=== PATIENT | female | born 1965 | race Caucasian/White ===

== ENCOUNTER 2019-09-01 21:26 | Inpatient (IN) | payer MEDICAID ==
[~2019-09-01] VITALS: Ht 172.7 cm; Wt 75.0 kg
[2019-09-01] MEDS ORDERED: normal saline 1000ML IV soln IVB ONE (21:45)
[2019-09-01] MEDS ORDERED: ondansetron/PF 4mg/2ml inj IV ONE (21:45)
[2019-09-01] MEDS: morphine 4 MG/ML inj SYRINge IV PRN (21:53)
[2019-09-01] MEDS ORDERED: acetaminophen 325mg tablet PO PRN ×2 (22:00)
[2019-09-01] MEDS ORDERED: mag hydrox/Alum hydrox/simeth 30ml oral suspension PO PRN (22:00)
[2019-09-01] MEDS ORDERED: ondansetron/PF 4mg/2ml inj IV PRN (22:00)
[2019-09-01] MEDS ORDERED: magnesium hydroxide 30ml (MOM) UD suspension PO PRN (22:00)
[2019-09-01] MEDS ORDERED: HYDROcodone/acetaminophen 5mg/325mg tablet PO PRN (22:00)
[2019-09-01] MEDS ORDERED: morphine 2 MG/ML inj. syringe IV PRN (22:00)
[2019-09-01] MEDS ORDERED: AMLO2.5T2 PO (22:08)
[2019-09-01] MEDS ORDERED: ATOR20TA PO (22:08)
[2019-09-01] MEDS ORDERED: POTA10TA19 PO (22:08)
[2019-09-01] MEDS ORDERED: SYN0.088T PO (22:08)
[2019-09-01] MEDS ORDERED: HYDR25TA4 PO (22:08)
[2019-09-01] MEDS ORDERED: LEVO25TA2 PO (22:08)
[2019-09-01 22:12] LABS: BASOPHILS % (AUTO) 0.3 % (0-1); EOSINOPHILS % (AUTO) 0.6 % (0-6); HEMATOCRIT 38.3 % (35.0-45.0); HEMOGLOBIN 13.3 g/dl (12.0-16.0); LYMPHOCYTES # (AUTO) 2.3 X10'3 (1.1-4.8); LYMPHOCYTES % (AUTO) 32.4 % (21-51); MEAN CORPUSCULAR HEMOGLOBIN 34.5 PG (27.0-31.0); MEAN CORPUSCULAR HGB CONC 34.9 g/dL (33.0-36.5); MEAN CORPUSCULAR VOLUME 98.8 FL (78-98); MEAN PLATELET VOLUME 7.6 FL (7.4-10.4); MONOCYTES # (AUTO) 0.8 X10'3 (0-0.9); MONOCYTES % (AUTO) 11.6 % (2-12); NEUTROPHILS # (AUTO) 3.9 X10'3 (1.8-7.7); NEUTROPHILS % (AUTO) 55.1 % (42-75); PLATELET COUNT 239 X10'3 (140-440); RED BLOOD COUNT 3.87 X10'6 (4.20-5.60); RED CELL DISTRIBUTION WIDTH 14.5 % (11.5-14.5)
[2019-09-01 22:33] LABS: ALANINE AMINOTRANSFERASE 96 U/L (12-78); ALBUMIN 2.9 G/DL (3.4-5.0); ALBUMIN/GLOBULIN RATIO 0.8 (1.1-1.5); ALKALINE PHOSPHATASE 199 IU/L (46-116); ANION GAP 9 (8-16); ASPARTATE AMINO TRANSFERASE 141 U/L (10-37); BILIRUBIN,TOTAL 1.4 MG/DL (0.1-1.0); BLOOD UREA NITROGEN 11 MG/DL (7-18); BUN/CREATININE RATIO 8.9 (6.6-38.0); CALCIUM 8.3 MG/DL (8.5-10.1); CHLORIDE 93 MMOL/L (99-107); CREATININE 1.23 MG/DL (0.40-0.90); GLUCOSE 97 MG/DL (70-104); LIPASE 904 U/L (73-393); POTASSIUM 3.4 MMOL/L (3.5-5.1); SODIUM 133 MMOL/L (135-145); TOTAL CARBON DIOXIDE 30.9 MMOL/L (24-32); TOTAL PROTEIN 6.5 G/DL (6.4-8.2); eGFR 46 ML/MIN
[2019-09-01] MEDS: normal saline 1000ml 1,000 ML IV SCH (23:31)
[2019-09-01] MEDS: HYDROcodone/acetaminophen 10/325mg tab PO PRN (23:35)
[2019-09-02] MEDS: diphenhydrAMINE 25mg capsule PO PRN ×3 (00:43→21:11)
[2019-09-02 00:48] LABS: CLARITY,URINE SLIGHTLY CLOUDY (Clear); GLUCOSE, URINE NEGATIVE (Neg); KETONES,URINE 15 mg/dl (Neg); LEUKOCYTE ESTERASE ,URINE NEGATIVE (Neg); OCCULT BLOOD,URINE NEGATIVE (Neg); PH,URINE 6.5 (4.8-8.0); PROTEIN,URINE 30 mg/dl (Neg)
[2019-09-02 00:53] LABS: UA COLLECTION TYPE CLN CATCH MIDSTREAM
[2019-09-02 00:55] LABS: COLOR,URINE DARK YELLOW (Yellow)
[2019-09-02 00:59] LABS: NITRITES, URINE NEGATIVE (Neg)
[2019-09-02 01:00] LABS: BACTERIA,URINE FEW /HPF (Neg); RBC,URINE NONE SEEN /HPF (0-2); WBC,URINE 0-4 /HPF (0-4)
[2019-09-02 01:01] LABS: SQUAMOUS EPITHELIAL CELL,UR MANY /LPF (FEW)
[2019-09-02] MEDS: morphine 4 MG/ML inj SYRINge IV PRN (01:35)
[2019-09-02 01:47] VITALS: BP 126/86
[2019-09-02] MEDS: HYDROcodone/acetaminophen 10/325mg tab PO PRN ×4 (03:44→22:56)
--- NOTE | 2019-09-02 06:09 | NUR ---
Problems reprioritized. Patient report given, questions answered & plan of care reviewed with NAVIN Lopez. Addendum: 09/02/19 at 0609 by Edwige Santiago RN Amended: Links added.
[2019-09-02 06:26] LABS: BASOPHILS % (AUTO) 0.2 % (0-1); EOSINOPHILS # (AUTO) 0.1 X10'3 (0-0.9); EOSINOPHILS % (AUTO) 1.9 % (0-6); HEMATOCRIT 32.9 % (35.0-45.0); HEMOGLOBIN 11.6 g/dl (12.0-16.0); LYMPHOCYTES # (AUTO) 1.8 X10'3 (1.1-4.8); LYMPHOCYTES % (AUTO) 32.9 % (21-51); MEAN CORPUSCULAR HEMOGLOBIN 34.8 PG (27.0-31.0); MEAN CORPUSCULAR HGB CONC 35.1 g/dL (33.0-36.5); MONOCYTES # (AUTO) 0.7 X10'3 (0-0.9); MONOCYTES % (AUTO) 13.6 % (2-12); NEUTROPHILS # (AUTO) 2.8 X10'3 (1.8-7.7); NEUTROPHILS % (AUTO) 51.4 % (42-75); PLATELET COUNT 201 X10'3 (140-440); RED BLOOD COUNT 3.33 X10'6 (4.20-5.60); RED CELL DISTRIBUTION WIDTH 14.3 % (11.5-14.5); WHITE BLOOD COUNT 5.5 X10'3 (4.5-11.0)
--- NOTE | 2019-09-02 06:30 | NUR ---
Patient in room [facility]. I have received report from Edwige HOLDEN and had the opportunity to ask questions and assume patient care.
[2019-09-02 06:45] LABS: ALANINE AMINOTRANSFERASE 78 U/L (12-78); ALBUMIN 2.5 G/DL (3.4-5.0); ALBUMIN/GLOBULIN RATIO 0.8 (1.1-1.5); ALKALINE PHOSPHATASE 172 IU/L (46-116); ANION GAP 7 (8-16); ASPARTATE AMINO TRANSFERASE 107 U/L (10-37); BILIRUBIN,TOTAL 1.2 MG/DL (0.1-1.0); BLOOD UREA NITROGEN 11 MG/DL (7-18); BUN/CREATININE RATIO 10.1 (6.6-38.0); CALCIUM 7.3 MG/DL (8.5-10.1); CHLORIDE 96 MMOL/L (99-107); CHOL/HDL RATIO 4.1 (0.00-4.99); CHOLESTEROL 138 MG/DL (0-200); CREATININE 1.09 MG/DL (0.40-0.90); GLUCOSE 85 MG/DL (70-104); HDL CHOLESTEROL 34 MG/DL (35-60); LDL CHOLESTEROL 82 MG/DL (50-100); SODIUM 133 MMOL/L (135-145); TOTAL CARBON DIOXIDE 29.7 MMOL/L (24-32); TOTAL PROTEIN 5.7 G/DL (6.4-8.2); TRIGLYCERIDES 147 MG/DL (20-135); eGFR 53 ML/MIN
[2019-09-02 06:54] LABS: POTASSIUM 2.8 MMOL/L (3.5-5.1)
--- NOTE | 2019-09-02 07:03 | NUR ---
PAGER ID: [phone] MESSAGE: [id number] Ant Echevarria8, need protocol to replace. Jessica [phone]
[2019-09-02] MEDS: enoxaparin 40mg/0.4ml syringe SUBCUT SCH (08:06)
[2019-09-02 09:20] VITALS: BP 106/67
[2019-09-02] MEDS ORDERED: potassium CL 10mEq/100ml bag 100 ML IV PRN (09:40)
[2019-09-02] MEDS ORDERED: potassium Cl 20 mEq SR tablet PO PRN (09:40)
[2019-09-02 11:31] VITALS: BP 113/76
[2019-09-02] MEDS: Potassium Cl 40 MEQ in NS 500 ML IV SCH ×2 (11:36→21:03)
[2019-09-02] MEDS: normal saline 1000ml 1,000 ML IV SCH ×2 (11:45→17:56)
--- NOTE | 2019-09-02 12:15 | NUR ---
Patient in room [facility] 348. I have received report from Audrey Newman RN and had the opportunity to ask questions and assume patient care.
--- NOTE | 2019-09-02 12:27 | NUR ---
PAGER ID: [phone] MESSAGE: [phone] Wale, is going for MRCP in 30 min. Can I get an order for PO Ativan please. Jessica [phone]
[2019-09-02] MEDS: morphine 2 MG/ML inj. syringe IV PRN ×3 (12:28→21:06)
[2019-09-02] MEDS ORDERED: SERT50TA10 PO (12:30)
[2019-09-02] MEDS ORDERED: OMEP-50 PO (12:30)
[2019-09-02] MEDS ORDERED: METO100T14 PO (12:30)
[2019-09-02] MEDS ORDERED: LORazepam 0.5 MG tablet PO STA (12:31)
--- NOTE | 2019-09-02 13:03 | NUR ---
Patient off the unit for MRCP
--- NOTE | 2019-09-02 15:09 | NUR ---
PAGER ID: [phone] MESSAGE: [phone] Vanita Echevarria: MRCP is complete with report. Jessica [phone]
--- NOTE | 2019-09-02 16:35 | NUR ---
REVIEWED SAFETY INTERN CHARTING
[2019-09-02] MEDS ORDERED: LEVO112T5 PO (17:18)
[2019-09-02] MEDS ORDERED: AMLO10TA PO (17:20)
--- NOTE | 2019-09-02 19:38 | NUR ---
Patient in room [facility] 348. I have received report from NAVIN Lopez and had the opportunity to ask questions and assume patient care. Addendum: 09/02/19 at 1939 by Edwige Santiago RN Amended: Links added.
[2019-09-02 20:00] VITALS: BP 94/66
[2019-09-02] MEDS: metoprolol tartrate 50mg tablet PO SCH (20:00)
[2019-09-03 00:25] VITALS: BP 93/63
[2019-09-03] MEDS: morphine 2 MG/ML inj. syringe IV PRN ×6 (00:59→22:00)
[2019-09-03] MEDS: HYDROcodone/acetaminophen 10/325mg tab PO PRN ×6 (03:00→23:42)
[2019-09-03] MEDS: normal saline 1000ml 1,000 ML IV SCH ×3 (03:56→23:56)
[2019-09-03 05:20] LABS: BASOPHILS % (AUTO) 0.2 % (0-1); EOSINOPHILS # (AUTO) 0.2 X10'3 (0-0.9); EOSINOPHILS % (AUTO) 3.5 % (0-6); HEMATOCRIT 34.7 % (35.0-45.0); LYMPHOCYTES # (AUTO) 2.1 X10'3 (1.1-4.8); MEAN CORPUSCULAR HEMOGLOBIN 35.1 PG (27.0-31.0); MEAN CORPUSCULAR HGB CONC 34.5 g/dL (33.0-36.5); MEAN CORPUSCULAR VOLUME 101.7 FL (78-98); MEAN PLATELET VOLUME 8.1 FL (7.4-10.4); MONOCYTES # (AUTO) 0.5 X10'3 (0-0.9); NEUTROPHILS # (AUTO) 3.6 X10'3 (1.8-7.7); NEUTROPHILS % (AUTO) 55.3 % (42-75); PLATELET COUNT 214 X10'3 (140-440); RED BLOOD COUNT 3.41 X10'6 (4.20-5.60); RED CELL DISTRIBUTION WIDTH 14.6 % (11.5-14.5); WHITE BLOOD COUNT 6.5 X10'3 (4.5-11.0)
[2019-09-03 06:08] LABS: ALANINE AMINOTRANSFERASE 84 U/L (12-78); ALBUMIN 2.7 G/DL (3.4-5.0); ALBUMIN/GLOBULIN RATIO 0.7 (1.1-1.5); ALKALINE PHOSPHATASE 190 IU/L (46-116); ANION GAP 12 (8-16); ASPARTATE AMINO TRANSFERASE 96 U/L (10-37); BLOOD UREA NITROGEN 10 MG/DL (7-18); BUN/CREATININE RATIO 9.7 (6.6-38.0); CALCIUM 7.7 MG/DL (8.5-10.1); CHLORIDE 98 MMOL/L (99-107); CREATININE 1.03 MG/DL (0.40-0.90); GLUCOSE 77 MG/DL (70-104); MAGNESIUM 1.1 MG/DL (1.5-2.4); POTASSIUM 3.6 MMOL/L (3.5-5.1); SODIUM 134 MMOL/L (135-145); TOTAL CARBON DIOXIDE 23.8 MMOL/L (24-32); TOTAL PROTEIN 6.4 G/DL (6.4-8.2); eGFR 56 ML/MIN
--- NOTE | 2019-09-03 06:11 | NUR ---
Problems reprioritized. Patient report given, questions answered & plan of care reviewed with NAVIN Lopez and SN Nida. Addendum: 09/03/19 at 0611 by Edwige Santiago RN Amended: Links added.
--- NOTE | 2019-09-03 06:40 | NUR ---
Patient in room [facility]. I have received report from Edwige HOLDEN and had the opportunity to ask questions and assume patient care.
[2019-09-03 07:04] VITALS: BP 109/78
[2019-09-03] MEDS: magnesium Cl slow-release 64mg tablet PO PRN ×2 (07:10→19:50)
[2019-09-03] MEDS: metoprolol tartrate 50mg tablet PO SCH ×2 (07:11→19:55)
[2019-09-03] MEDS: diphenhydrAMINE 25mg capsule PO PRN ×3 (07:11→22:00)
[2019-09-03] MEDS: sertraline 50mg tablet PO SCH (07:11)
[2019-09-03] MEDS: enoxaparin 40mg/0.4ml syringe SUBCUT SCH (08:00)
[2019-09-03] MEDS: amLODIPine 5mg tablet PO SCH (08:00)
[2019-09-03] MEDS ORDERED: levoTHYROXINE 112mcg tablet PO SCH (08:00)
[2019-09-03 12:40] VITALS: BP 97/68
--- NOTE | 2019-09-03 17:45 | NUR ---
Faxed [employer] Screening Form.
--- NOTE | 2019-09-03 18:21 | NUR ---
Problems reprioritized. Patient report given, questions answered & plan of care reviewed with Edwige HOLDEN.
--- NOTE | 2019-09-03 19:24 | NUR ---
Patient in room [facility] 348. I have received report from NAVIN Lopez and had the opportunity to ask questions and assume patient care. Addendum: 09/03/19 at 1925 by Edwige Santiago RN Amended: Links added.
[2019-09-03 20:00] VITALS: BP 102/73
[2019-09-03] MEDS: diatr meglu/diatrizoate 30ml oral sol.-(3 dose) bottle PO SCH (20:42)
[2019-09-04] VITALS: BP 121/83
[2019-09-04] MEDS: morphine 2 MG/ML inj. syringe IV PRN ×4 (02:41→20:26)
[2019-09-04 05:21] LABS: BASOPHILS % (AUTO) 0.3 % (0-1); EOSINOPHILS # (AUTO) 0.2 X10'3 (0-0.9); EOSINOPHILS % (AUTO) 4.9 % (0-6); HEMATOCRIT 28.1 % (35.0-45.0); HEMOGLOBIN 9.6 g/dl (12.0-16.0); LYMPHOCYTES # (AUTO) 1.1 X10'3 (1.1-4.8); LYMPHOCYTES % (AUTO) 29.9 % (21-51); MEAN CORPUSCULAR HEMOGLOBIN 34.8 PG (27.0-31.0); MEAN CORPUSCULAR HGB CONC 34.2 g/dL (33.0-36.5); MEAN CORPUSCULAR VOLUME 101.9 FL (78-98); MEAN PLATELET VOLUME 7.6 FL (7.4-10.4); MONOCYTES # (AUTO) 0.5 X10'3 (0-0.9); MONOCYTES % (AUTO) 12.4 % (2-12); NEUTROPHILS # (AUTO) 1.9 X10'3 (1.8-7.7); NEUTROPHILS % (AUTO) 52.5 % (42-75); PLATELET COUNT 190 X10'3 (140-440); RED BLOOD COUNT 2.75 X10'6 (4.20-5.60); RED CELL DISTRIBUTION WIDTH 14.7 % (11.5-14.5); WHITE BLOOD COUNT 3.6 X10'3 (4.5-11.0)
[2019-09-04 05:37] LABS: ALANINE AMINOTRANSFERASE 66 U/L (12-78); ALBUMIN 2.1 G/DL (3.4-5.0); ALBUMIN/GLOBULIN RATIO 0.7 (1.1-1.5); ALKALINE PHOSPHATASE 154 IU/L (46-116); ANION GAP 12 (8-16); ASPARTATE AMINO TRANSFERASE 52 U/L (10-37); BILIRUBIN,TOTAL 0.5 MG/DL (0.1-1.0); BLOOD UREA NITROGEN 7 MG/DL (7-18); BUN/CREATININE RATIO 10.4 (6.6-38.0); CALCIUM 6.8 MG/DL (8.5-10.1); CHLORIDE 103 MMOL/L (99-107); CREATININE 0.67 MG/DL (0.40-0.90); GLUCOSE 70 MG/DL (70-104); LIPASE 105 U/L (73-393); MAGNESIUM 1.1 MG/DL (1.5-2.4); SODIUM 138 MMOL/L (135-145); TOTAL CARBON DIOXIDE 22.6 MMOL/L (24-32); eGFR > 90 ML/MIN
--- NOTE | 2019-09-04 06:28 | NUR ---
Problems reprioritized. Patient report given, questions answered & plan of care reviewed with NAVIN King. Addendum: 09/04/19 at 0628 by Edwige Santiago RN Amended: Links added.
--- NOTE | 2019-09-04 06:33 | NUR ---
Received report from NAVIN Gibbons
[2019-09-04 07:00] VITALS: BP 110/71
[2019-09-04] MEDS ORDERED: levoTHYROXINE 75mcg tablet PO SCH (07:00)
[2019-09-04] MEDS: enoxaparin 40mg/0.4ml syringe SUBCUT SCH (07:11)
[2019-09-04] MEDS: diatr meglu/diatrizoate 30ml oral sol.-(3 dose) bottle PO SCH ×2 (07:23→10:36)
[2019-09-04] MEDS: amLODIPine 5mg tablet PO SCH (07:50)
[2019-09-04] MEDS: magnesium Cl slow-release 64mg tablet PO PRN (07:50)
[2019-09-04] MEDS: metoprolol tartrate 50mg tablet PO SCH ×2 (07:51→19:25)
[2019-09-04] MEDS: levoTHYROXINE 125mcg tablet PO SCH (07:52)
[2019-09-04] MEDS: sertraline 50mg tablet PO SCH (07:52)
[2019-09-04] MEDS: normal saline 1000ml 1,000 ML IV SCH ×2 (09:56→23:24)
[2019-09-04] MEDS ORDERED: iohexol 300mg/ml 100ml inj. ONE (10:17)
[2019-09-04] MEDS: HYDROcodone/acetaminophen 10/325mg tab PO PRN ×3 (11:32→23:24)
[2019-09-04 11:45] VITALS: BP 133/88
[2019-09-04] MEDS: potassium Cl 20 mEq SR tablet PO PRN ×2 (12:38→17:55)
[2019-09-04] MEDS ORDERED: ALPRAZolam 0.25mg tablet PO PRN (14:05)
[2019-09-04] MEDS ORDERED: morphine 2 MG/ML inj. syringe IV PRN (14:05)
[2019-09-04] MEDS ORDERED: loperamide 2mg capsule PO PRN (15:35)
--- NOTE | 2019-09-04 16:06 | NUR ---
TPN Consult: Pt admit w/ acute pancreatitis lipase 904 now WNL. MCV 101.9 w/ hepatitis panel pending and prior etoh hx as well. JANIS met w/ on floor and reports nutrition consult was a request for appropriate nutrition intervention given dx at this time. JANIS d/w MD regarding clear liquids continuation if tolerating PO, post-pyloric EN if unable to tolerate PO optimal MNT, and final means of nutrition is PN. requests RD to d/w pt nutrition options. Pt seen by RD and provided w/ nutrition options at this time; pt reports abdominal pain better w/ last broth she had and is willing to continue clear liquids for a few more days to see if she starts tolerating. notified of pt decision and no TPN at this time. Pt will need written pancreatitis ed once stable prior to d/c. requests RD f/u tomorrow w/ pt to re-evaluate nutrition needs. Will f/u tomorrow. Rec: 1. continue clear liquid diet; advance as tolerated to low fat per 2. post-pyloric NG feeds in proximal jejunum if prolonged intolerance of PO diet Addendum: 09/04/19 at [address] Amended: Links added. Addendum: 09/04/19 at [address] TPN Consult: Pt admit w/ acute pancreatitis lipase 904 now WNL. MCV 101.9 w/ hepatitis panel pending and prior etoh hx as well. JANIS met w/ MD on floor and MD reports nutrition consult was a request for appropriate nutrition intervention given dx at this time. JANIS d/w regarding clear liquids continuation if tolerating PO, post-pyloric EN if unable to tolerate PO optimal MNT, and final means of nutrition is PN. requests RD to d/w pt nutrition options. Pt seen by RD and provided w/ nutrition options at this time; pt reports abdominal pain better w/ last broth she had and is willing to continue clear liquids for a few more days to see if she starts tolerating. MD notified of pt decision and no TPN at this time. RD also d/w MD/pt regarding potential need for pancreatic enzymes given dx and d/w regarding potential folic/B12 needs w/ elevated MCV and etoh hx. Pt will need written pancreatitis ed once stable prior to d/c. requests RD f/u tomorrow w/ pt to re-evaluate nutrition needs. Will f/u tomorrow. Rec: 1. continue clear liquid diet; advance as tolerated to low fat per MD 2. post-pyloric NG feeds in proximal jejunum if prolonged intolerance of PO diet 3. consider pancreatic enzymes per MD approval 4. folic/B12/MVI w/ MCV elevation and possible etoh per MD approval
--- NOTE | 2019-09-04 16:27 | NUR ---
Patient in room [facility] 348. I have received report from Christine and had the opportunity to ask questions and assume patient care.
--- NOTE | 2019-09-04 16:31 | NUR ---
somewhat firm just below and to the left of the umbilicus pt report is new; also LUQ ttp that is chronic r/t her pancreatitis Addendum: 09/04/19 at 1640 by Leonor MONTESNU Amended: Links added.
--- NOTE | 2019-09-04 17:42 | NUR ---
Problems reprioritized. Patient report given, questions answered & plan of care reviewed with Christine.
--- NOTE | 2019-09-04 18:28 | NUR ---
Problems reprioritized. Patient report given, questions answered & plan of care reviewed with marybeth marquez.
--- NOTE | 2019-09-04 18:30 | NUR ---
Patient in room [facility] 348. I have received report from NAVIN King and had the opportunity to ask questions and assume patient care. Pt awake sitting up in bed, req dinner, cl liq diet given. No complaints. Addendum: 09/04/19 at 1843 by Nicko Conley RN Amended: Links added.
[2019-09-04 19:20] VITALS: BP 114/84
[2019-09-04] MEDS: magnesium Cl slow-release 64mg tablet PO SCH (19:26)
[2019-09-04 23:39] VITALS: BP 119/82
[2019-09-05] MEDS: morphine 2 MG/ML inj. syringe IV PRN ×5 (00:45→23:31)
[2019-09-05] MEDS: HYDROcodone/acetaminophen 10/325mg tab PO PRN ×5 (03:23→21:46)
[2019-09-05 05:16] LABS: HBSAG SCREEN Negative (Negative); HEP A AB, IGM Negative (Negative); HEP B CORE AB, IGM Negative (Negative); HEPATITIS C ANTIBODY 0.1 s/co ratio (0.0-0.9)
[2019-09-05 05:38] LABS: BASOPHILS % (AUTO) 0.5 % (0-1); EOSINOPHILS # (AUTO) 0.2 X10'3 (0-0.9); EOSINOPHILS % (AUTO) 3.6 % (0-6); HEMOGLOBIN 9.8 g/dl (12.0-16.0); LYMPHOCYTES # (AUTO) 1.4 X10'3 (1.1-4.8); LYMPHOCYTES % (AUTO) 29.4 % (21-51); MEAN CORPUSCULAR HEMOGLOBIN 34.5 PG (27.0-31.0); MEAN CORPUSCULAR HGB CONC 33.7 g/dL (33.0-36.5); MEAN CORPUSCULAR VOLUME 102.4 FL (78-98); MEAN PLATELET VOLUME 7.3 FL (7.4-10.4); MONOCYTES # (AUTO) 0.7 X10'3 (0-0.9); MONOCYTES % (AUTO) 15.4 % (2-12); NEUTROPHILS # (AUTO) 2.5 X10'3 (1.8-7.7); NEUTROPHILS % (AUTO) 51.1 % (42-75); PLATELET COUNT 260 X10'3 (140-440); RED BLOOD COUNT 2.83 X10'6 (4.20-5.60); RED CELL DISTRIBUTION WIDTH 14.9 % (11.5-14.5); WHITE BLOOD COUNT 4.8 X10'3 (4.5-11.0)
[2019-09-05 05:54] LABS: ALANINE AMINOTRANSFERASE 62 U/L (12-78); ALBUMIN 2.1 G/DL (3.4-5.0); ALBUMIN/GLOBULIN RATIO 0.7 (1.1-1.5); ALKALINE PHOSPHATASE 160 IU/L (46-116); ANION GAP 15 (8-16); ASPARTATE AMINO TRANSFERASE 41 U/L (10-37); BILIRUBIN,TOTAL 0.4 MG/DL (0.1-1.0); BLOOD UREA NITROGEN 3 MG/DL (7-18); BUN/CREATININE RATIO 4.4 (6.6-38.0); CALCIUM 6.8 MG/DL (8.5-10.1); CHLORIDE 109 MMOL/L (99-107); CREATININE 0.68 MG/DL (0.40-0.90); GLUCOSE 67 MG/DL (70-104); MAGNESIUM 1.1 MG/DL (1.5-2.4); POTASSIUM 3.6 MMOL/L (3.5-5.1); SODIUM 141 MMOL/L (135-145); TOTAL CARBON DIOXIDE 17.4 MMOL/L (24-32); eGFR > 90 ML/MIN
--- NOTE | 2019-09-05 06:30 | NUR ---
Problems reprioritized. Patient report given, questions answered & plan of care reviewed with NAVIN Franklin. Addendum: 09/05/19 at 0633 by Nicko Conley RN Amended: Links added.
--- NOTE | 2019-09-05 06:30 | NUR ---
Patient in room [facility] 348. I have received report from NAVIN Dawson and had the opportunity to ask questions and assume patient care.
--- NOTE | 2019-09-05 06:43 | NUR ---
Received report from NAVIN Dawson
[2019-09-05 07:08] VITALS: BP 123/81
[2019-09-05 07:16] VITALS: BP 123/81
[2019-09-05] MEDS: amLODIPine 5mg tablet PO SCH (07:52)
[2019-09-05] MEDS: metoprolol tartrate 50mg tablet PO SCH ×2 (07:52→19:06)
[2019-09-05] MEDS: levoTHYROXINE 125mcg tablet PO SCH (07:53)
[2019-09-05] MEDS: magnesium Cl slow-release 64mg tablet PO SCH ×2 (07:53→19:09)
[2019-09-05] MEDS: sertraline 50mg tablet PO SCH (07:54)
[2019-09-05] MEDS: enoxaparin 40mg/0.4ml syringe SUBCUT SCH (07:55)
[2019-09-05 08:15] LABS: GIANT PLATELET FEW; LARGE PLATELETS FEW; PLATELET ESTIMATE NORMAL
[2019-09-05 11:25] VITALS: BP 136/87
--- NOTE | 2019-09-05 13:14 | NUR ---
just below and to the left of the umbilicus there is very mild firmness, with ttp that is worse than yesterday; LUQ ttp that is chronic and unchanged from previous assessments; skin without erythema, increased heat, or ecchymosis Addendum: 09/05/19 at 1321 by Leonor MOULTON Amended: Links added.
[2019-09-05 15:35] VITALS: BP 120/84
[2019-09-05] MEDS ORDERED: magnesium 4gm in 100ml NS 100 ML IV ONE (15:40)
[2019-09-05] MEDS: normal saline 1000ml 1,000 ML IV SCH (16:17)
--- NOTE | 2019-09-05 16:54 | NUR ---
Student documentation: I have reviewed all interventions, assessments performed and documented by Leonor BARBOUR
--- NOTE | 2019-09-05 17:57 | NUR ---
Problems reprioritized. Patient report given, questions answered & plan of care reviewed with Noemi.
--- NOTE | 2019-09-05 17:57 | NUR ---
Patient in room [facility] 348. I have received report from Noemi and had the opportunity to ask questions and assume patient care.
--- NOTE | 2019-09-05 18:21 | NUR ---
Problems reprioritized. Patient report given, questions answered & plan of care reviewed with NAVIN Dawson.
--- NOTE | 2019-09-05 18:25 | NUR ---
Patient in room [facility] 348. I have received report from NAVIN JAIMES and had the opportunity to ask questions and assume patient care. Addendum: 09/05/19 at 1856 by Nicko Conley RN Amended: Links added.
[2019-09-05 19:00] VITALS: BP 113/72
--- NOTE | 2019-09-05 19:09 | NUR ---
PO MAG HELD, WHILE IV INFUSING. PT HAVIG DIARRHEA, STATES IS SLOWING DOWN. Addendum: 09/05/19 at 1911 by Nicko Conley RN Amended: Links added.
[2019-09-05 23:30] VITALS: BP 120/84
[2019-09-06] MEDS: normal saline 1000ml 1,000 ML IV SCH (01:08)
[2019-09-06] MEDS: HYDROcodone/acetaminophen 10/325mg tab PO PRN ×3 (01:38→10:28)
[2019-09-06] MEDS: morphine 2 MG/ML inj. syringe IV PRN (03:39)
[2019-09-06 05:21] LABS: BASOPHILS % (AUTO) 0.7 % (0-1); EOSINOPHILS # (AUTO) 0.2 X10'3 (0-0.9); EOSINOPHILS % (AUTO) 3.4 % (0-6); HEMATOCRIT 29.4 % (35.0-45.0); HEMOGLOBIN 10.3 g/dl (12.0-16.0); LYMPHOCYTES # (AUTO) 1.3 X10'3 (1.1-4.8); MEAN CORPUSCULAR HEMOGLOBIN 35.3 PG (27.0-31.0); MEAN CORPUSCULAR HGB CONC 34.9 g/dL (33.0-36.5); MEAN CORPUSCULAR VOLUME 101.1 FL (78-98); MEAN PLATELET VOLUME 6.9 FL (7.4-10.4); MONOCYTES # (AUTO) 0.9 X10'3 (0-0.9); NEUTROPHILS # (AUTO) 2.4 X10'3 (1.8-7.7); NEUTROPHILS % (AUTO) 49.9 % (42-75); PLATELET COUNT 304 X10'3 (140-440); RED BLOOD COUNT 2.91 X10'6 (4.20-5.60); RED CELL DISTRIBUTION WIDTH 14.7 % (11.5-14.5); WHITE BLOOD COUNT 4.7 X10'3 (4.5-11.0)
[2019-09-06 05:35] LABS: ALANINE AMINOTRANSFERASE 60 U/L (12-78); ALBUMIN/GLOBULIN RATIO 0.7 (1.1-1.5); ALKALINE PHOSPHATASE 162 IU/L (46-116); ANION GAP 10 (8-16); ASPARTATE AMINO TRANSFERASE 38 U/L (10-37); BILIRUBIN,TOTAL 0.4 MG/DL (0.1-1.0); BLOOD UREA NITROGEN 1 MG/DL (7-18); BUN/CREATININE RATIO 1.6 (6.6-38.0); CALCIUM 6.9 MG/DL (8.5-10.1); CHLORIDE 108 MMOL/L (99-107); CREATININE 0.61 MG/DL (0.40-0.90); GLUCOSE 77 MG/DL (70-104); MAGNESIUM 1.9 MG/DL (1.5-2.4); POTASSIUM 3.1 MMOL/L (3.5-5.1); SODIUM 138 MMOL/L (135-145); TOTAL CARBON DIOXIDE 20.5 MMOL/L (24-32); TOTAL PROTEIN 4.9 G/DL (6.4-8.2); eGFR > 90 ML/MIN
--- NOTE | 2019-09-06 06:24 | NUR ---
Problems reprioritized. Patient report given, questions answered & plan of care reviewed with NAVIN Franklin. Addendum: 09/06/19 at 0624 by Nicko Conley RN Amended: Links added.
--- NOTE | 2019-09-06 06:28 | NUR ---
Patient in room [facility] 348. I have received report from NAVIN Dawson and had the opportunity to ask questions and assume patient care.
[2019-09-06] MEDS: levoTHYROXINE 125mcg tablet PO SCH (07:51)
[2019-09-06] MEDS: amLODIPine 5mg tablet PO SCH (07:52)
[2019-09-06] MEDS: sertraline 50mg tablet PO SCH (07:52)
[2019-09-06] MEDS: metoprolol tartrate 50mg tablet PO SCH (07:52)
[2019-09-06] MEDS: magnesium Cl slow-release 64mg tablet PO SCH (07:52)
[2019-09-06] MEDS: enoxaparin 40mg/0.4ml syringe SUBCUT SCH (07:53)
[2019-09-06 08:05] VITALS: BP 115/77
[2019-09-06] MEDS ORDERED: potassium Cl 20 mEq SR tablet PO PRN ×2 (10:05)
[2019-09-06] MEDS ORDERED: potassium CL 10mEq/100ml bag 100 ML IV PRN (10:05)
[2019-09-06 11:17] VITALS: BP 114/81
[2019-09-06] MEDS ORDERED: LIPA1CAP8 PO (11:46)
== END 2019-09-06 12:30 | disposition home or self-care (01) | DRG 282 ==
LOC: ER 21:26 → ED HOLD 23:47 → SUR 3N 09-02 01:15
PROVIDERS: ADMIT Hospitalist; ATTEND Internal Medicine
DX: K85.90 Acute pancreatitis without necrosis or infection, unspecified (principal); N17.9 Acute kidney failure, unspecified; K52.1 Toxic gastroenteritis and colitis; K76.0 Fatty (change of) liver, not elsewhere classified; R16.0 Hepatomegaly, not elsewhere classified; E83.42 Hypomagnesemia; E87.1 Hypo-osmolality and hyponatremia; D64.9 Anemia, unspecified; E03.9 Hypothyroidism, unspecified; E78.00 Pure hypercholesterolemia, unspecified; T47.4X5A Adverse effect of other laxatives, initial encounter; E87.6 Hypokalemia; K86.3 Pseudocyst of pancreas; F17.200 Nicotine dependence, unspecified, uncomplicated; Y92.238 Other place in hospital as the place of occurrence of the external cause; F32.9 Major depressive disorder, single episode, unspecified; I10 Essential (primary) hypertension; K86.1 Other chronic pancreatitis; R94.5 Abnormal results of liver function studies; Z90.49 Acquired absence of other specified parts of digestive tract; Z88.0 Allergy status to penicillin
CPT/HCPCS: 36415; 74177; 74181; 80053; 80061; 80074; 81001; 82948; 82977; 83690; 83735; 84443; 85025; 87081; 96374; 96375; 99285; G0378; J1650; J2270; J2405; J3475; J3480; J7030; J7040; Q0163; Q9963; Q9967

== ENCOUNTER 2020-01-07 17:53 | Inpatient (IN) | payer MEDICAID ==
[~2020-01-07] VITALS: Ht 167.6 cm; Wt 59.1 kg
[2020-01-07] MEDS: HYDROmorphone/NS 1 mg/ml CADD 50 ML IV SCH (01:50)
[~2020-01-07 17:53] MED LIST: AMLO10TA PO; ATOR20TA PO; LEVO112T5 PO; LIPA1CAP8 PO; METO100T14 PO; OMEP-50 PO; POTA10TA19 PO; SERT50TA10 PO
[2020-01-07] MEDS ORDERED: cefepime 2gm inj IV STA (18:09)
[2020-01-07] MEDS ORDERED: normal saline 1000ML IV soln IVB ONE ×2 (18:10→19:50)
[2020-01-07] MEDS ORDERED: ondansetron/PF 4mg/2ml inj IV ONE (18:10)
[2020-01-07] MEDS ORDERED: CEFEPIME 2 GM in NS 100ml IV.SOLN 100 ML IV ONE (18:20)
[2020-01-07] MEDS ORDERED: CEFEPIME 2gm in D5W 50mL 50 ML IV ONE (18:21)
[2020-01-07] MEDS ORDERED: dextrose 5%-1/2 normal saline 1,000 ML IV SCH (18:35)
[2020-01-07 19:07] LABS: BASOPHILS % (AUTO) 0.5 % (0-1); EOSINOPHILS # (AUTO) 0.2 X10'3 (0-0.9); EOSINOPHILS % (AUTO) 2.3 % (0-6); HEMATOCRIT 29.3 % (35.0-45.0); HEMOGLOBIN 10.3 g/dl (12.0-16.0); LYMPHOCYTES # (AUTO) 1.7 X10'3 (1.1-4.8); LYMPHOCYTES % (AUTO) 24.6 % (21-51); MEAN CORPUSCULAR HEMOGLOBIN 32.5 PG (27.0-31.0); MEAN CORPUSCULAR HGB CONC 35.1 g/dL (33.0-36.5); MEAN CORPUSCULAR VOLUME 92.6 FL (78-98); MEAN PLATELET VOLUME 7.1 FL (7.4-10.4); MONOCYTES # (AUTO) 0.8 X10'3 (0-0.9); MONOCYTES % (AUTO) 11.4 % (2-12); NEUTROPHILS # (AUTO) 4.3 X10'3 (1.8-7.7); NEUTROPHILS % (AUTO) 61.2 % (42-75); PLATELET COUNT 297 X10'3 (140-440); RED BLOOD COUNT 3.16 X10'6 (4.20-5.60); RED CELL DISTRIBUTION WIDTH 19.6 % (11.5-14.5)
[2020-01-07 19:11] LABS: ALANINE AMINOTRANSFERASE 10 U/L (12-78); ALBUMIN 1.1 G/DL (3.4-5.0); ALBUMIN/GLOBULIN RATIO 0.3 (1.1-1.5); ALKALINE PHOSPHATASE 180 IU/L (46-116); ANION GAP 10 (8-16); ASPARTATE AMINO TRANSFERASE 20 U/L (10-37); BILIRUBIN,TOTAL 0.5 MG/DL (0.1-1.0); BLOOD UREA NITROGEN 5 MG/DL (7-18); BUN/CREATININE RATIO 10.2 (6.6-38.0); CALCIUM 6.6 MG/DL (8.5-10.1); CHLORIDE 111 MMOL/L (99-107); CREATININE 0.49 MG/DL (0.40-0.90); GLUCOSE 81 MG/DL (70-104); LIPASE 478 U/L (73-393); SODIUM 142 MMOL/L (135-145); TOTAL CARBON DIOXIDE 21.4 MMOL/L (24-32); TOTAL PROTEIN 4.4 G/DL (6.4-8.2); eGFR > 90 ML/MIN
[2020-01-07] MEDS ORDERED: heparin 10,000 units/1 ML INJ IV ONE ×2 (19:15→22:20)
[2020-01-07] MEDS ORDERED: heparin 25,000 UNIT/250ml bag 250 ML IV SCH (19:15)
[2020-01-07 19:18] LABS: POTASSIUM 2.9 MMOL/L (3.5-5.1)
[2020-01-07 19:30] LABS: ANISOCYTOSIS 2+; PLATELET ESTIMATE NORMAL
--- NOTE | 2020-01-07 19:47 | NUR ---
PT WITH BPS IN MID 80'S , ZAKIA WONG UPDATED AND VERBAL RECEIVED FOR 2 LITERS NS BOLUS. PT WILL NEED 2ND IV PLACED NEEDS HEPARIN GTT FOR DVT. PT AWITING HOSPITALIST. ACCUCHECK NOW 74 AFTER 1 HR WITH D5 1/2 NS INFUSING AT 75 HR.
--- NOTE | 2020-01-07 20:00 | NUR ---
l ej 18 g placed. HEPARIN GTT STARTED.
[2020-01-07 20:27] LABS: PARTIAL THROMBOPLASTIN TIME 28 SECONDS (22-32)
[2020-01-07] MEDS: potassium Cl 10 mEq/100mL bag IV SCH (20:55)
--- NOTE | 2020-01-07 21:52 | NUR ---
DR ARIAS AT BEDSIDE FOR ADMISSION. PT FOUND STANDING AT EDGE OF BED AND EJ LINE PULLED OUT AND L PIV ALMOST PULLED OUT. HER PANTS WERE WET AND SHE REPRTED SHE NEEDED TO VOID. PT ASSISTED TO JOAN AND VOIDING 300 CC'S LIGHT CLEAR URINE. PT TEARFUL AND REPORTING SEVERE PAIN TO HER MID ABDOMEN, RADIATING TO HER LEFT UPPER ABDOMEN AND AROUND TO HER LEFT FLANK AND LEFT BACK. BP 110/78. RECEIVING HEPARIN GTT AND POTASSIUM 10 MEQ IVPB AND D51/2 NS AT 75. PT MORE ALERT NOW AND ANSWERING ALL QUESTIONS SLOWLY BUT APPROPRIATELY. CONTINUES FALLING ASLEEP WHILE TALKING, BUT IS EASILY AWAKENED.
[2020-01-07] MEDS ORDERED: potassium Cl 20mEq in NS 1,000 ML IV SCH (22:09)
[2020-01-07] MEDS ORDERED: magnesium 4gm in 100ml NS 100 ML IV PRN (22:10)
[2020-01-07] MEDS ORDERED: magnesium Cl slow-release 64mg tablet PO PRN (22:10)
[2020-01-07] MEDS ORDERED: ondansetron/PF 4mg/2ml inj IV PRN (22:10)
[2020-01-07] MEDS ORDERED: magnesium 2GM in 50ml NS 50 ML IV PRN (22:10)
[2020-01-07] MEDS ORDERED: naloxone 0.4 mg/ml inj IV PRN (22:20)
[2020-01-07] MEDS ORDERED: CADD PCA waste documentation MC PRN (22:20)
[2020-01-08] VITALS (8 sets, daily range): BP systolic 86–117; BP diastolic 57–85
[2020-01-08] MEDS: potassium Cl 10 mEq/100mL bag IV SCH (00:03)
--- NOTE | 2020-01-08 00:16 | NUR ---
Received report from Giovana HOLDEN in the ER. Pt arrived on the unit via gurney and was able to ambulate to her bed. Her personal belongings were placed in the bedside cabinet. Heparin drip was running at 1000units/hr. NS with 20mEq of K was running at 100. Pt VSS, no signs of distress, will continue to monitor.
[2020-01-08] MEDS: HYDROmorphone/NS 1 mg/ml CADD 50 ML IV SCH ×5 (01:00→09:00)
[2020-01-08 03:25] LABS: ALANINE AMINOTRANSFERASE 15 U/L (12-78); ALBUMIN/GLOBULIN RATIO 0.3 (1.1-1.5); ALKALINE PHOSPHATASE 170 IU/L (46-116); ASPARTATE AMINO TRANSFERASE 29 U/L (10-37); BILIRUBIN,TOTAL 0.4 MG/DL (0.1-1.0); BLOOD UREA NITROGEN 3 MG/DL (7-18); BUN/CREATININE RATIO 6.1 (6.6-38.0); CHLORIDE 118 MMOL/L (99-107); CREATININE 0.49 MG/DL (0.40-0.90); GLUCOSE 78 MG/DL (70-104); TOTAL CARBON DIOXIDE 19.5 MMOL/L (24-32); TOTAL PROTEIN 4.1 G/DL (6.4-8.2); eGFR > 90 ML/MIN
[2020-01-08 04:01] LABS: ANION GAP 9 (8-16); POTASSIUM 3.2 MMOL/L (3.5-5.1); SODIUM 146 MMOL/L (135-145)
[2020-01-08 04:08] LABS: CALCIUM 5.6 MG/DL (8.5-10.1)
--- NOTE | 2020-01-08 04:33 | NUR ---
Pt had three critical labs, Ca+ 5.6, Mg 1.0, and PTT of 120. Called Dr. Graham and made him aware. He stated to follow DVT/heparin protocol and electrolyte replacement protocol as ordered. Heparin drip turned off for 2 hours starting at 0430. Pt has no signs of distress, will continue to monitor.
--- NOTE | 2020-01-08 06:25 | NUR ---
Patient in room [facility] 355. I have received report from NAVIN Oswald and had the opportunity to ask questions and assume patient care.
[2020-01-08] MEDS: heparin 25,000 UNIT/250ml bag 250 ML IV SCH ×3 (06:35→21:03)
--- NOTE | 2020-01-08 06:36 | NUR ---
Problems reprioritized. Patient report given, questions answered & plan of care reviewed with Mary HOLDEN.
--- NOTE | 2020-01-08 06:37 | NUR ---
Heparin drip turned back on after 120 minutes of being off. Restarted at 700 units/hr. Cosigned change with Mary HOLDEN
--- NOTE | 2020-01-08 06:41 | NUR ---
Patient in room [facility] 355. I have received report from night nurse and had the opportunity to ask questions and assume patient care.
[2020-01-08] MEDS: K and/or MAG REPLACEMENT MC SCH ×2 (08:00→20:00)
[2020-01-08] MEDS ORDERED: pantoprazole 40mg Tablet.DR PO SCH (08:00)
[2020-01-08] MEDS: metoprolol tartrate 50mg tablet PO SCH ×2 (08:57→20:00)
[2020-01-08] MEDS: amLODIPine 5mg tablet PO SCH (08:57)
[2020-01-08] MEDS: levoTHYROXINE 112mcg tablet PO SCH (08:57)
[2020-01-08] MEDS: potassium CL 10mEq/100ml bag 100 ML IV PRN ×3 (08:58→21:04)
[2020-01-08 09:07] LABS: BASOPHILS % (AUTO) 0.6 % (0-1); EOSINOPHILS # (AUTO) 0.2 X10'3 (0-0.9); EOSINOPHILS % (AUTO) 3.4 % (0-6); HEMATOCRIT 32.3 % (35.0-45.0); HEMOGLOBIN 11.1 g/dl (12.0-16.0); LYMPHOCYTES # (AUTO) 1.7 X10'3 (1.1-4.8); LYMPHOCYTES % (AUTO) 29.6 % (21-51); MEAN CORPUSCULAR HEMOGLOBIN 32.5 PG (27.0-31.0); MEAN CORPUSCULAR HGB CONC 34.4 g/dL (33.0-36.5); MEAN CORPUSCULAR VOLUME 94.5 FL (78-98); MEAN PLATELET VOLUME 7.2 FL (7.4-10.4); MONOCYTES # (AUTO) 0.6 X10'3 (0-0.9); MONOCYTES % (AUTO) 9.9 % (2-12); NEUTROPHILS # (AUTO) 3.3 X10'3 (1.8-7.7); NEUTROPHILS % (AUTO) 56.5 % (42-75); PLATELET COUNT 311 X10'3 (140-440); RED BLOOD COUNT 3.41 X10'6 (4.20-5.60); RED CELL DISTRIBUTION WIDTH 19.7 % (11.5-14.5); WHITE BLOOD COUNT 5.9 X10'3 (4.5-11.0)
[2020-01-08 09:39] LABS: ANISOCYTOSIS 2+; PLATELET ESTIMATE NORMAL
[2020-01-08] MEDS: heparin 10,000 units/1 ML INJ IV PRN (09:56)
[2020-01-08 09:59] LABS: MAGNESIUM 1.2 MG/DL (1.5-2.4); PHOSPHORUS 3.7 MG/DL (2.3-4.5); POTASSIUM 3.1 MMOL/L (3.5-5.1)
[2020-01-08] MEDS ORDERED: calcium chloride inj. 1,000 MG in normal saline 100ml IV soln 100 ML IV ONE (10:15)
[2020-01-08 10:54] LABS: CLARITY,URINE CLOUDY (Clear); COLOR,URINE YELLOW (Yellow); GLUCOSE, URINE NEGATIVE (Neg); KETONES,URINE NEGATIVE (Neg); LEUKOCYTE ESTERASE ,URINE NEGATIVE (Neg); NITRITES, URINE NEGATIVE (Neg); OCCULT BLOOD,URINE NEGATIVE (Neg); PROTEIN,URINE NEGATIVE (Neg); UROBILINOGEN,URINE 0.2 E.U/dL (0.2-1.0)
[2020-01-08 10:56] LABS: UA COLLECTION TYPE CLN CATCH MIDSTREAM
[2020-01-08 11:03] LABS: MUCUS STRANDS MODERATE /LPF (Neg); SQUAMOUS EPITHELIAL CELL,UR MANY /LPF (FEW)
[2020-01-08 11:04] LABS: BACTERIA,URINE 1+ /HPF (Neg); RBC,URINE 0-2 /HPF (0-2); URINE AMPHETAMINE SCREEN NEGATIVE (Neg); URINE BARBITUATE SCREEN NEGATIVE (Neg); URINE BENZODIAZEPINES SCREEN NEGATIVE (Neg); URINE CANNABINOID SCREEN NEGATIVE (Neg); URINE COCAINE SCREEN NEGATIVE (Neg); URINE METHADONE SCREEN NEGATIVE (Neg); URINE OPIATE SCREEN POSITIVE (Neg); URINE PHENCYCLIDINE SCREEN NEGATIVE (Neg); WBC,URINE 0-4 /HPF (0-4)
[2020-01-08] MEDS ORDERED: iohexol 300mg/ml 100ml inj. ONE (11:31)
--- NOTE | 2020-01-08 12:12 | NUR ---
Problems reprioritized. Patient report given, questions answered & plan of care reviewed with vlad salas.
--- NOTE | 2020-01-08 13:26 | NUR ---
Student documentation: I have reviewed all interventions, assessments performed and documented by Ava MALCOLM
--- NOTE | 2020-01-08 14:37 | NUR ---
patient requesting pain meds for abdominal pain 07/23 Addendum: 01/08/20 at 1438 by Joanne MOULTON Amended: Links added.
--- NOTE | 2020-01-08 14:41 | NUR ---
edema right ankle and foot; edema left lower leg knee down to foot. Addendum: 01/08/20 at 1446 by Joanne MOULTON Amended: Links added.
[2020-01-08] MEDS: morphine 2 MG/ML inj. syringe IV PRN ×2 (15:19→19:51)
--- NOTE | 2020-01-08 15:57 | NUR ---
Student documentation: Jessica Boucher RN Clinical Instructor for [facility], have reviewed all interventions, assessments performed and documented by Liset HUERTA from [facility].
--- NOTE | 2020-01-08 16:21 | NUR ---
Patient transfer from [facility] and had originally presented to the ED with worsening abdominal pain over past 48 hours and recurring pancreatitis, critically ill appearing per ED documentation. History of acute on chronic pancreatitis with pseudocyst, h/o EtOH no longer drinking per H&P. Documented as confused. Admission weight documented with no weight method 59 kg, administrative nursing supervisor assisted in obtaining new standing scale weight, obtained as 65.8 kg, d/w bedside RN. Previous documented weight 75 kg last August as patient stated. Using the patient's stated weight from August she has lost 20 lbs in 4 months, 13% loss. Met with patient at bedside, she reports she last had a meal on Monday however felt nausea afterwards. While discussing weight loss she stated she is happy with the loss and prefers 145 lbs compared to 165 lbs, however patient meets more than two criteria for malnutrition. If unable to advance diet by monday patient would benefit from TPN to meet needs, which is indicated if patient more than seven days NPO. Patient asked when she can be advanced to clear liquids, explained it will likely be when her abdominal pain has improved and when lipase has improved, discussed above with bedside RN and notified MD. Will continue to follow. Recommend: 1. advance diet as medically indicated when lipase improved and patient has improved abdominal pain to clear liquids 2. would benefit from TPN if expected to be more than seven days NPO 3. pancreatitis education prior to discharge, pt painful today 4. weight per rx Addendum: 01/08/20 at [address] Amended: Links added.
--- NOTE | 2020-01-08 18:30 | NUR ---
Problems reprioritized. Patient report given, questions answered & plan of care reviewed with Vinny Villagomez RN.
[2020-01-08] MEDS ORDERED: LORazepam 2 mg/ml vial IV ONE (18:40)
--- NOTE | 2020-01-08 18:55 | NUR ---
PTT 109. Stopped heparin, patient on the way down for MRCP.
--- NOTE | 2020-01-08 18:58 | NUR ---
Beverley from MRI notified of elevated PTT.
--- NOTE | 2020-01-08 19:02 | NUR ---
Dr. Lord notified of PTT results. Follow protocol.
[2020-01-08] MEDS: pantoprazole 40 MG vial IV SCH (19:53)
[2020-01-08] MEDS: dextrose 5%-normal saline 1,000 ML IV SCH (20:03)
--- NOTE | 2020-01-08 22:20 | NUR ---
Pt tore off armband, telemetry leads, and left 20g IV. Obtained sitter order. Switched heparin to right 20g IV. Will restart potassium replacement once new IV in place.
[2020-01-09] VITALS: BP 84/54
[2020-01-09 00:45] VITALS: BP 119/71
[2020-01-09] MEDS: heparin 10,000 units/1 ML INJ IV PRN ×2 (00:49→22:42)
[2020-01-09] MEDS: heparin 25,000 UNIT/250ml bag 250 ML IV SCH ×3 (00:50→22:43)
[2020-01-09] MEDS: HYDROmorphone inj. 0.5 MG/0.5 ML DISP.SYRIN IV PRN ×6 (00:54→20:59)
--- NOTE | 2020-01-09 01:18 | NUR ---
Per pharmacist, unable to run D5NS with heparin drip. Held fluids at this time until further IV access can be gained
[2020-01-09] MEDS: dextrose 5%-normal saline 1,000 ML IV SCH ×3 (05:20→22:14)
--- NOTE | 2020-01-09 06:20 | NUR ---
Patient in room [facility] 355. I have received report from Dahlia Casillas RN and had the opportunity to ask questions and assume patient care.
--- NOTE | 2020-01-09 06:22 | NUR ---
Problems reprioritized. Patient report given, questions answered & plan of care reviewed with NAVIN Hernandez.
[2020-01-09 06:44] LABS: BASOPHILS % (AUTO) 0.7 % (0-1); EOSINOPHILS # (AUTO) 0.3 X10'3 (0-0.9); EOSINOPHILS % (AUTO) 4.8 % (0-6); HEMOGLOBIN 9.9 g/dl (12.0-16.0); LYMPHOCYTES # (AUTO) 1.9 X10'3 (1.1-4.8); LYMPHOCYTES % (AUTO) 32.1 % (21-51); MEAN CORPUSCULAR HEMOGLOBIN 32.1 PG (27.0-31.0); MEAN CORPUSCULAR HGB CONC 34.3 g/dL (33.0-36.5); MEAN CORPUSCULAR VOLUME 93.6 FL (78-98); MEAN PLATELET VOLUME 7.3 FL (7.4-10.4); MONOCYTES # (AUTO) 0.6 X10'3 (0-0.9); MONOCYTES % (AUTO) 10.4 % (2-12); NEUTROPHILS # (AUTO) 3.1 X10'3 (1.8-7.7); PLATELET COUNT 282 X10'3 (140-440); RED CELL DISTRIBUTION WIDTH 19.8 % (11.5-14.5)
[2020-01-09 07:00] VITALS: BP 98/70
[2020-01-09 07:07] LABS: ALANINE AMINOTRANSFERASE 19 U/L (12-78); ALBUMIN 1.1 G/DL (3.4-5.0); ALBUMIN/GLOBULIN RATIO 0.3 (1.1-1.5); ALKALINE PHOSPHATASE 200 IU/L (46-116); ANION GAP 13 (8-16); ASPARTATE AMINO TRANSFERASE 32 U/L (10-37); BILIRUBIN,TOTAL 0.4 MG/DL (0.1-1.0); BLOOD UREA NITROGEN 2 MG/DL (7-18); BUN/CREATININE RATIO 3.9 (6.6-38.0); CALCIUM 6.9 MG/DL (8.5-10.1); CHLORIDE 111 MMOL/L (99-107); CREATININE 0.51 MG/DL (0.40-0.90); GLUCOSE 60 MG/DL (70-104); HDL CHOLESTEROL 16 MG/DL (35-60); LDL CHOLESTEROL 16 MG/DL (50-100); LIPASE 145 U/L (73-393); MAGNESIUM 2.1 MG/DL (1.5-2.4); SODIUM 143 MMOL/L (135-145); TOTAL CARBON DIOXIDE 19.5 MMOL/L (24-32); TOTAL PROTEIN 4.5 G/DL (6.4-8.2); TRIGLYCERIDES 64 MG/DL (20-135); eGFR > 90 ML/MIN
[2020-01-09] MEDS: K and/or MAG REPLACEMENT MC SCH ×2 (07:18→20:00)
[2020-01-09 07:23] LABS: CHOLESTEROL < 50 MG/DL (0-200)
[2020-01-09 07:25] LABS: POTASSIUM 2.8 MMOL/L (3.5-5.1)
--- NOTE | 2020-01-09 07:26 | NUR ---
Good morning, Is there anyway that I can have 2- 500mL bags of potassium for this patient with K of 2.8? Thank you
[2020-01-09 07:56] LABS: ANISOCYTOSIS 2+; PLATELET ESTIMATE NORMAL
[2020-01-09] MEDS: pantoprazole 40 MG vial IV SCH ×2 (08:57→20:52)
[2020-01-09] MEDS: metoprolol tartrate 50mg tablet PO SCH ×2 (08:58→21:07)
[2020-01-09] MEDS: amLODIPine 5mg tablet PO SCH (08:58)
[2020-01-09] MEDS: levoTHYROXINE 112mcg tablet PO SCH (08:59)
[2020-01-09] MEDS ORDERED: calcium chloride 100 MG/1 ML inj IV ONE (09:50)
[2020-01-09] MEDS: potassium CL 10mEq/100ml bag 100 ML IV PRN ×8 (10:24→23:56)
[2020-01-09] MEDS ORDERED: calcium chloride inj. 1,000 MG in normal saline 100ml IV soln 90 ML IV ONE (10:25)
[2020-01-09 11:00] VITALS: BP 87/58
[2020-01-09] MEDS: nicotine 21mg patch - 24 hr TD SCH (11:31)
--- NOTE | 2020-01-09 12:04 | NUR ---
F/u: Patient's diet has been advanced to clear liquid. Pending first meal since advancement. Lipase WNL today. LB 01/08. Will continue to follow closely. Addendum: 01/09/20 at [address] Amended: Links added.
[2020-01-09] MEDS: sodium bicarbonate 650mg tablet PO SCH ×2 (13:04→20:52)
--- NOTE | 2020-01-09 18:30 | NUR ---
Patient in room [facility] 355. I have received report from NAVIN Hernandez and had the opportunity to ask questions and assume patient care.
--- NOTE | 2020-01-09 18:49 | NUR ---
Problems reprioritized. Patient report given, questions answered & plan of care reviewed with NAVIN Villagomez.
[2020-01-09 20:00] VITALS: BP 104/72
--- NOTE | 2020-01-09 21:08 | NUR ---
Patient did not want full dose of lopressor. Only agreed to 50 mg.
[2020-01-10] VITALS: BP 102/67
[2020-01-10] MEDS: HYDROmorphone inj. 0.5 MG/0.5 ML DISP.SYRIN IV PRN ×4 (01:00→13:56)
[2020-01-10 05:40] LABS: BASOPHILS % (AUTO) 0.7 % (0-1); EOSINOPHILS # (AUTO) 0.3 X10'3 (0-0.9); HEMATOCRIT 27.5 % (35.0-45.0); HEMOGLOBIN 9.5 g/dl (12.0-16.0); LYMPHOCYTES # (AUTO) 1.7 X10'3 (1.1-4.8); LYMPHOCYTES % (AUTO) 33.7 % (21-51); MEAN CORPUSCULAR HEMOGLOBIN 32.4 PG (27.0-31.0); MEAN CORPUSCULAR HGB CONC 34.6 g/dL (33.0-36.5); MEAN CORPUSCULAR VOLUME 93.6 FL (78-98); MEAN PLATELET VOLUME 7.2 FL (7.4-10.4); MONOCYTES # (AUTO) 0.7 X10'3 (0-0.9); MONOCYTES % (AUTO) 13.2 % (2-12); NEUTROPHILS # (AUTO) 2.4 X10'3 (1.8-7.7); NEUTROPHILS % (AUTO) 47.4 % (42-75); PLATELET COUNT 315 X10'3 (140-440); RED BLOOD COUNT 2.94 X10'6 (4.20-5.60); RED CELL DISTRIBUTION WIDTH 20.2 % (11.5-14.5); WHITE BLOOD COUNT 5.1 X10'3 (4.5-11.0)
--- NOTE | 2020-01-10 06:01 | NUR ---
PTT 79, heparin drip stopped per protocol.
[2020-01-10] MEDS: heparin 25,000 UNIT/250ml bag 250 ML IV SCH (06:50)
[2020-01-10 07:00] VITALS: BP 97/64
[2020-01-10 07:03] LABS: ALANINE AMINOTRANSFERASE 18 U/L (12-78); ALBUMIN 1.1 G/DL (3.4-5.0); ALBUMIN/GLOBULIN RATIO 0.3 (1.1-1.5); ALKALINE PHOSPHATASE 198 IU/L (46-116); ANION GAP 8 (8-16); ASPARTATE AMINO TRANSFERASE 33 U/L (10-37); BILIRUBIN,TOTAL 0.3 MG/DL (0.1-1.0); BLOOD UREA NITROGEN 1 MG/DL (7-18); CALCIUM 6.8 MG/DL (8.5-10.1); CHLORIDE 112 MMOL/L (99-107); GLUCOSE 92 MG/DL (70-104); MAGNESIUM 1.4 MG/DL (1.5-2.4); PHOSPHORUS 2.3 MG/DL (2.3-4.5); POTASSIUM 3.2 MMOL/L (3.5-5.1); SODIUM 142 MMOL/L (135-145); TOTAL CARBON DIOXIDE 21.8 MMOL/L (24-32); TOTAL PROTEIN 4.3 G/DL (6.4-8.2)
--- NOTE | 2020-01-10 07:09 | NUR ---
Problems reprioritized. Patient report given, questions answered & plan of care reviewed with NAVIN Torres.
[2020-01-10 07:14] LABS: BUN/CREATININE RATIO 1.8 (6.6-38.0); CREATININE 0.55 MG/DL (0.40-0.90); eGFR > 90 ML/MIN
[2020-01-10] MEDS: K and/or MAG REPLACEMENT MC SCH (08:00)
[2020-01-10] MEDS ORDERED: levoTHYROXINE 112mcg tablet PO SCH (08:00)
[2020-01-10] MEDS: amLODIPine 5mg tablet PO SCH (08:46)
[2020-01-10] MEDS: pantoprazole 40 MG vial IV SCH (08:49)
[2020-01-10] MEDS: sodium bicarbonate 650mg tablet PO SCH ×2 (08:49→12:16)
[2020-01-10] MEDS: nicotine 21mg patch - 24 hr TD SCH (08:51)
[2020-01-10] MEDS: metoprolol tartrate 50mg tablet PO SCH (08:59)
[2020-01-10] MEDS ORDERED: warfarin 5mg tablet PO ONE (09:45)
--- NOTE | 2020-01-10 09:53 | NUR ---
PAGER ID: [phone] MESSAGE: Vanita EchevarriaA : are you ok with replacing K+ po? tolerated other pills fine. thanks pepe [phone]
--- NOTE | 2020-01-10 10:22 | NUR ---
Dr Lord notified patient has coumadin ordered to be given at 0945 but also states to be given at 2100. Asked Dr Lord to clarify order. Awaiting response.
[2020-01-10 11:00] VITALS: BP 101/72
[2020-01-10] MEDS ORDERED: magnesium 4gm in 100ml NS 100 ML IV PRN (11:15)
[2020-01-10] MEDS ORDERED: magnesium Cl slow-release 64mg tablet PO PRN (11:15)
[2020-01-10] MEDS ORDERED: potassium Cl 20 mEq SR tablet PO PRN ×2 (11:15)
[2020-01-10] MEDS ORDERED: potassium CL 10mEq/100ml bag 100 ML IV PRN (11:15)
[2020-01-10] MEDS ORDERED: enoxaparin 60mg/0.6ml syringe SUBCUT ONE (12:00)
[2020-01-10] MEDS ORDERED: LEVO25TA7 PO (12:09)
[2020-01-10] MEDS ORDERED: potassium Cl 20 mEq SR tablet PO STA (12:09)
[2020-01-10] MEDS ORDERED: CALC-1051 PO (12:09)
[2020-01-10] MEDS ORDERED: WARF-55 PO (12:09)
[2020-01-10] MEDS ORDERED: NICO-687 TD (12:09)
[2020-01-10] MEDS ORDERED: LEVO100T9 PO (12:09)
[2020-01-10] MEDS ORDERED: ENOX60DI10 SUBCUT (12:09)
[2020-01-10] MEDS ORDERED: MAGN400C PO (12:09)
[2020-01-10] MEDS ORDERED: LIPA1CAP18 PO (12:11)
--- NOTE | 2020-01-10 13:33 | NUR ---
PATIENT READY FOR DC AND WAITING FOR TRANSPORTATION.
--- NOTE | 2020-01-10 14:33 | NUR ---
PATIENT A&O WITH SPOUSE ADONAY AT BEDSIDE. EDUCATED PATIENT AND SPOUSE DISCHARGE TEACHING AND NEW PRESCRIPTIONS. PATIENT VERBALIZES UNDERSTANDING OF INSTRUCTIONS. PATIENT WAS ALSO EDUCATED AND DEMONSTRATED ON HOW TO SELF ADMINISTER LOVENOX INJECTIONS. PATIENT STATES SHE KNOWS HOW SHE HELPED HER SISTER ADMINISTER ANTICOAGULANT INJECTIONS SUBCUTANEOUSLY.
[2020-01-10] MEDS ORDERED: HYDR-4383 PO (15:03)
--- NOTE | 2020-01-10 15:22 | NUR ---
PATIENT DC'D WITH ALL PERSONAL BELONGINGS ACCOMPANIED BY SPOUSE AND X1 STAFF. PATIENT WAS ALERT AND ORIENTED AND IN NO APPARENT DISTRESS.
[2020-01-10] MEDS ORDERED: enoxaparin 60mg/0.6ml syringe SUBCUT SCH (20:00)
[2020-01-10] MEDS ORDERED: warfarin 10mg tablet PO ONE (21:00)
== END 2020-01-10 15:15 | disposition home or self-care (01) | DRG 282 ==
LOC: ER 17:54 → ED HOLD 22:09 → EDBEDREQ 22:31 → SUR 3N 01-08 01:04
PROVIDERS: ADMIT Internal Medicine; ATTEND Family Medicine
DX: K85.90 Acute pancreatitis without necrosis or infection, unspecified (principal); I81 Portal vein thrombosis; E43 Unspecified severe protein-calorie malnutrition; E03.9 Hypothyroidism, unspecified; E78.00 Pure hypercholesterolemia, unspecified; E83.39 Other disorders of phosphorus metabolism; E78.5 Hyperlipidemia, unspecified; E83.42 Hypomagnesemia; E83.51 Hypocalcemia; E87.6 Hypokalemia; I10 Essential (primary) hypertension; K21.9 Gastro-esophageal reflux disease without esophagitis; K86.1 Other chronic pancreatitis; K86.3 Pseudocyst of pancreas; Z79.890 Hormone replacement therapy; Z90.710 Acquired absence of both cervix and uterus; Z68.21 Body mass index [BMI] 21.0-21.9, adult; Z88.0 Allergy status to penicillin; Z90.49 Acquired absence of other specified parts of digestive tract
CPT/HCPCS: 36415; 74177; 74181; 76937; 80053; 80061; 80305; 81001; 82330; 82948; 83605; 83690; 83735; 84100; 84132; 84145; 84443; 85025; 85610; 85730; 87040; 87081; 97110; 97116; 97162; C9113; G0378; J0692; J1170; J1644; J1650; J2060; J2270; J2405; J3475; J3480; J7030; J7042; Q9967

== ENCOUNTER 2020-01-21 13:16 | Inpatient (IN) | payer MEDICAID ==
[2020-01-21] VITALS (10 sets, daily range): BP systolic 82–117; BP diastolic 47–83
[~2020-01-21] VITALS: Ht 172.7 cm; Wt 76.9 kg
[~2020-01-21 13:16] MED LIST changes: +CALC-1051 PO; +ENOX60DI10 SUBCUT; +HYDR-4383 PO; +LEVO100T9 PO; -LEVO112T5 PO; +LEVO25TA7 PO; +LIPA1CAP18 PO; -LIPA1CAP8 PO; +MAGN400C PO; +NICO-687 TD; -SERT50TA10 PO; +WARF-55 PO; +etomidate 2mg/ml inj. ONE; +rocuronium 10mg/ml inj IV ONE
[2020-01-21] MEDS ORDERED: normal saline 1000ML IV soln IV ONE (13:30)
[2020-01-21 14:01] LABS: BASOPHILS % (AUTO) 0.2 % (0-1); EOSINOPHILS % (AUTO) 0.1 % (0-6); LYMPHOCYTES # (AUTO) 1.3 X10'3 (1.1-4.8); LYMPHOCYTES % (AUTO) 8.5 % (21-51); MEAN CORPUSCULAR HEMOGLOBIN 30.5 PG (27.0-31.0); MEAN CORPUSCULAR HGB CONC 33.6 g/dL (33.0-36.5); MEAN CORPUSCULAR VOLUME 90.9 FL (78-98); MEAN PLATELET VOLUME 8.4 FL (7.4-10.4); MONOCYTES # (AUTO) 1.2 X10'3 (0-0.9); MONOCYTES % (AUTO) 8.3 % (2-12); NEUTROPHILS # (AUTO) 12.3 X10'3 (1.8-7.7); NEUTROPHILS % (AUTO) 82.9 % (42-75); PLATELET COUNT 222 X10'3 (140-440); RED BLOOD COUNT 1.89 X10'6 (4.20-5.60); WHITE BLOOD COUNT 14.8 X10'3 (4.5-11.0)
[2020-01-21 14:03] LABS: HEMATOCRIT 17.2 % (35.0-45.0); HEMOGLOBIN 5.8 g/dl (12.0-16.0)
[2020-01-21] MEDS: pantoprazole 40MG/NS 100ML BAG 100 ML IV SCH ×3 (14:08→21:00)
--- NOTE | 2020-01-21 14:10 | NUR ---
Pt transferred from [facility] for "behind pancreas bleed," post OBS admission. She arrived via [facility] with 1 unit PRBC just completed and FFP given en route. Additional 2 units PRBC and 1 FFP unit accompanied pt, was on ice and sealed for continued administration per [facility] EDMD Rob and [facility] EDMD Tank. Pt cross and typed for [facility]. 2nd unit PRBC and last unit of FFP started @ [facility] using downtime documentation as blood/plasma did not originate from this lab. [facility] lab personnel came to inspect products prior to thier use. Additionally, FC and 2 18 gauge PIVs and right subclavian CL were in place @ assumption of care. Pt AOX4. Manual BPs required as ED6 equipment not able to detect pt's BP. She denies N/V, dizziness and SOB @ this time, but reports increasing pain which will be addressed with ZAKIA Garcia.
[2020-01-21] MEDS ORDERED: fentaNYL/PF 50MCG/1 ML 2ML syringe IV ONE (14:20)
[2020-01-21] MEDS ORDERED: DESMOPRESSIN IV ONE (14:30)
[2020-01-21] MEDS ORDERED: NORMAL SALINE IV ONE (14:30)
[2020-01-21 15:01] LABS: TOTAL CELLS COUNTED 100
[2020-01-21 15:02] LABS: ANISOCYTOSIS 2+; HYPOCHROMASIA 4+; PLATELET ESTIMATE NORMAL
[2020-01-21 15:04] LABS: POLYCHROMASIA 1+
[2020-01-21 15:06] LABS: LARGE PLATELETS FEW; STOMATOCYTES 1+
[2020-01-21 15:24] LABS: ALANINE AMINOTRANSFERASE 71 U/L (12-78); ALBUMIN 0.9 G/DL (3.4-5.0); ALBUMIN/GLOBULIN RATIO 0.3 (1.1-1.5); ALKALINE PHOSPHATASE 144 IU/L (46-116); ANION GAP 10 (8-16); ASPARTATE AMINO TRANSFERASE 408 U/L (10-37); BLOOD UREA NITROGEN 8 MG/DL (7-18); BUN/CREATININE RATIO 6.3 (6.6-38.0); CHLORIDE 111 MMOL/L (99-107); CREATININE 1.27 MG/DL (0.40-0.90); GLUCOSE 95 MG/DL (70-104); POTASSIUM 3.9 MMOL/L (3.5-5.1); SODIUM 139 MMOL/L (135-145); TOTAL CARBON DIOXIDE 17.8 MMOL/L (24-32); TOTAL PROTEIN 3.5 G/DL (6.4-8.2); eGFR 44 ML/MIN
[2020-01-21] MEDS ORDERED: HYDROmorphone 1 mg/ml syringe IV ONE (15:25)
[2020-01-21 15:32] LABS: CALCIUM 5.5 MG/DL (8.5-10.1)
[2020-01-21] MEDS ORDERED: FOLI0.4T14 PO (15:45)
[2020-01-21] MEDS ORDERED: OMEP-50 PO (15:45)
[2020-01-21] MEDS ORDERED: MAGN400C PO (15:45)
[2020-01-21] MEDS ORDERED: CALC-723 PO (15:45)
[2020-01-21] MEDS ORDERED: SERT50TA10 PO (15:45)
[2020-01-21] MEDS ORDERED: POTA10TA19 PO (15:45)
[2020-01-21] MEDS ORDERED: HYDR-3686 PO (15:45)
[2020-01-21] MEDS ORDERED: NICO-687 TOP (15:45)
[2020-01-21] MEDS ORDERED: ENOX60DI7 SQ (15:45)
[2020-01-21] MEDS ORDERED: LIPA1CAP18 PO (15:45)
[2020-01-21] MEDS ORDERED: WARF-55 PO (15:45)
[2020-01-21] MEDS ORDERED: HYDR12.55 PO (15:45)
[2020-01-21] MEDS ORDERED: LEVO150T8 PO (15:45)
[2020-01-21] MEDS ORDERED: METO100T14 PO (15:45)
[2020-01-21] MEDS ORDERED: MULT-227 PO (15:46)
[2020-01-21] MEDS ORDERED: acetaminophen 325mg tablet PO PRN ×2 (16:25)
[2020-01-21] MEDS ORDERED: sodium phosphate inj. 30 MMOL in dextrose 5%-water 250 ML IV PRN (16:25)
[2020-01-21] MEDS ORDERED: magnesium 4gm in 100ml NS 100 ML IV PRN (16:25)
[2020-01-21] MEDS ORDERED: bisacodyl 10mg suppository rectal RC PRN (16:25)
[2020-01-21] MEDS ORDERED: potassium CL 10mEq/100ml bag 100 ML IV PRN (16:25)
[2020-01-21] MEDS ORDERED: ipratropium/albuterol 3ml nebule NEB PRN (16:25)
[2020-01-21] MEDS ORDERED: ondansetron/PF 4mg/2ml inj IV PRN (16:25)
[2020-01-21] MEDS ORDERED: potassium Cl 20 mEq SR tablet PO PRN ×2 (16:25)
[2020-01-21] MEDS ORDERED: LIDOcaine 2% 10ml TOPICAL JELLY (Urojet) TP ONE ×2 (16:25→20:40)
[2020-01-21] MEDS ORDERED: magnesium Cl slow-release 64mg tablet PO PRN (16:25)
[2020-01-21] MEDS ORDERED: Neutra Phos packet PO PRN (16:25)
[2020-01-21] MEDS ORDERED: magnesium 2GM in 50ml NS 50 ML IV PRN (16:25)
[2020-01-21] MEDS ORDERED: sodium phosphate inj. 15 MMOL in dextrose 5%-water 250 ML IV PRN (16:25)
[2020-01-21] MEDS ORDERED: calcium chloride inj. 1,000 MG in normal saline 100ml IV soln 90 ML IV ONE (16:30)
[2020-01-21] MEDS: albumin (human) 25% 100 ML IV solution IV SCH ×2 (16:31→23:55)
[2020-01-21] MEDS: normal saline 1000ml 1,000 ML IV SCH (16:54)
--- NOTE | 2020-01-21 17:10 | NUR ---
received pt report from Haily HOLDEN.
[2020-01-21 17:11] LABS: AMYLASE 44 U/L (25-115); LIPASE 482 U/L (73-393)
--- NOTE | 2020-01-21 17:55 | NUR ---
pt arrive to floor via gurney and was transferred to hospital bed. during transfer, Central line was pulled; chest xray ordered.
[2020-01-21 17:56] LABS: BASOPHILS % (AUTO) 0 % (0-1); EOSINOPHILS # (AUTO) 0.1 X10'3 (0-0.9); EOSINOPHILS % (AUTO) 0.4 % (0-6); HEMOGLOBIN 7.2 g/dl (12.0-16.0); LYMPHOCYTES % (AUTO) 8.6 % (21-51); MEAN CORPUSCULAR HEMOGLOBIN 30.5 PG (27.0-31.0); MEAN CORPUSCULAR HGB CONC 33.5 g/dL (33.0-36.5); MEAN CORPUSCULAR VOLUME 91.1 FL (78-98); MEAN PLATELET VOLUME 8.5 FL (7.4-10.4); MONOCYTES # (AUTO) 0.9 X10'3 (0-0.9); MONOCYTES % (AUTO) 7.6 % (2-12); NEUTROPHILS # (AUTO) 9.9 X10'3 (1.8-7.7); NEUTROPHILS % (AUTO) 83.4 % (42-75); PLATELET COUNT 151 X10'3 (140-440); RED BLOOD COUNT 2.37 X10'6 (4.20-5.60); RED CELL DISTRIBUTION WIDTH 18.2 % (11.5-14.5); WHITE BLOOD COUNT 11.9 X10'3 (4.5-11.0)
[2020-01-21 18:00] LABS: HEMATOCRIT 21.6 % (35.0-45.0)
[2020-01-21] MEDS: morphine 4 MG/ML inj SYRINge IV PRN ×3 (18:06→19:38)
--- NOTE | 2020-01-21 18:29 | NUR ---
Dr. Fernando notified about pt's current H/H of 7.2/ 21.6 orders received. Addendum: 01/21/20 at 1837 by Nickolas Costa RN notified Dr. Fernando that pharmacy would like him to call to get confirmation for PCC ("prothrombin factor concentrate")
[2020-01-21] MEDS ORDERED: octreotide inj. 500 MCG in normal saline 100ml IV soln 100 ML IV SCH (18:35)
[2020-01-21] MEDS ORDERED: octreotide inj. 1,250 MCG in normal saline 250ml IV soln 243.75 ML IV SCH (18:40)
[2020-01-21] MEDS ORDERED: midazolam 2 mg/2 ml injection ONE ×3 (19:04→19:50)
[2020-01-21] MEDS ORDERED: morphine 2 MG/ML inj. syringe IV PRN (19:05)
[2020-01-21] MEDS ORDERED: MIDAZolam 5mg/ml 2ml vial IV ONE (19:05)
[2020-01-21] MEDS ORDERED: LIDOcaine 1%/PF 5ML 10 MG/ML VIAL ONE (19:18)
[2020-01-21] MEDS ORDERED: fentaNYL/PF 50MCG/1 ML 2ML syringe ONE ×2 (19:18→19:50)
[2020-01-21] MEDS ORDERED: heparin 1,000 UNITS/NS 500ml 500 ML ONE (19:19)
[2020-01-21] MEDS ORDERED: iohexol 300mg/ml 100ml inj. ONE (19:19)
--- NOTE | 2020-01-21 19:20 | NUR ---
Patient in room CICU 2011. I have received report from NAVIN Dotson and had the opportunity to ask questions and assume patient care.
[2020-01-21] MEDS ORDERED: HUM PROTHROMBIN CPLX(PCC)4FACT 1,000 UNIT VIAL IV ONE (19:30)
--- NOTE | 2020-01-21 19:30 | NUR ---
Patient left for IR.
[2020-01-21 19:31] LABS: BASOPHILS % (AUTO) 0.2 % (0-1); EOSINOPHILS % (AUTO) 0.1 % (0-6); HEMOGLOBIN 7.1 g/dl (12.0-16.0); LYMPHOCYTES # (AUTO) 0.9 X10'3 (1.1-4.8); MEAN CORPUSCULAR HEMOGLOBIN 31.1 PG (27.0-31.0); MEAN CORPUSCULAR HGB CONC 34.6 g/dL (33.0-36.5); MEAN CORPUSCULAR VOLUME 89.9 FL (78-98); MONOCYTES # (AUTO) 0.9 X10'3 (0-0.9); MONOCYTES % (AUTO) 7.5 % (2-12); NEUTROPHILS # (AUTO) 9.6 X10'3 (1.8-7.7); NEUTROPHILS % (AUTO) 84.2 % (42-75); PLATELET COUNT 145 X10'3 (140-440); RED BLOOD COUNT 2.28 X10'6 (4.20-5.60); RED CELL DISTRIBUTION WIDTH 17.7 % (11.5-14.5); WHITE BLOOD COUNT 11.3 X10'3 (4.5-11.0)
[2020-01-21 19:33] LABS: HEMATOCRIT 20.5 % (35.0-45.0)
[2020-01-21] MEDS: pantoprazole 40 MG vial IV SCH (20:00)
[2020-01-21 20:25] LABS: D-DIMER 1.44 MG/L FEU (0-0.50); PARTIAL THROMBOPLASTIN TIME 33 SECONDS (22-32)
--- NOTE | 2020-01-21 20:30 | NUR ---
Working with Dr. Fernando and ZAKIA Salinas on orders, wants Q4hr labs (CBC,CMP,LA,PT,PTT,Fibrinogen,Ion Ca+). Abdominal pressures Q4hr and Curtis wraps to legs.
[2020-01-21 20:33] LABS: PLATELET COUNT 145 X10'3 (140-440)
--- NOTE | 2020-01-21 20:45 | NUR ---
Patient arrived back from IR, no source of bleed found.
[2020-01-21 20:57] LABS: ALANINE AMINOTRANSFERASE 70 U/L (12-78); ALBUMIN/GLOBULIN RATIO 0.8 (1.1-1.5); ALKALINE PHOSPHATASE 130 IU/L (46-116); ANION GAP 11 (8-16); ASPARTATE AMINO TRANSFERASE 425 U/L (10-37); BILIRUBIN,TOTAL 2.1 MG/DL (0.1-1.0); BLOOD UREA NITROGEN 8 MG/DL (7-18); BUN/CREATININE RATIO 7.3 (6.6-38.0); CHLORIDE 110 MMOL/L (99-107); GLUCOSE 92 MG/DL (70-104); MAGNESIUM 1.3 MG/DL (1.5-2.4); POTASSIUM 3.4 MMOL/L (3.5-5.1); SODIUM 141 MMOL/L (135-145); TOTAL CARBON DIOXIDE 20.4 MMOL/L (24-32); TOTAL PROTEIN 4.6 G/DL (6.4-8.2); eGFR 52 ML/MIN
[2020-01-21 20:58] LABS: CALCIUM 5.9 MG/DL (8.5-10.1)
[2020-01-21] MEDS: levoFLOXACIN-Levaquin 250mg/D5 50 ML IV SCH (21:12)
[2020-01-21] MEDS: OCTREOTIDE IV SCH (21:23)
[2020-01-21] MEDS: NORMAL SALINE IV SCH (21:23)
[2020-01-21] MEDS ORDERED: CALCIUM GLUC 1gm/50ml NACL,iso 100 ML IV ONE (21:55)
[2020-01-21] MEDS: heparin 25,000 UNIT/250ml bag 250 ML IV SCH (22:02)
[2020-01-21] MEDS: morphine 2 MG/ML inj. syringe IV PRN (22:07)
[2020-01-21 22:14] LABS: BASOPHILS % (AUTO) 0.2 % (0-1); EOSINOPHILS % (AUTO) 0.3 % (0-6); HEMATOCRIT 24.5 % (35.0-45.0); HEMOGLOBIN 8.5 g/dl (12.0-16.0); LYMPHOCYTES % (AUTO) 9.4 % (21-51); MEAN CORPUSCULAR HEMOGLOBIN 31.1 PG (27.0-31.0); MEAN CORPUSCULAR HGB CONC 34.5 g/dL (33.0-36.5); MEAN CORPUSCULAR VOLUME 90.3 FL (78-98); MEAN PLATELET VOLUME 7.9 FL (7.4-10.4); MONOCYTES # (AUTO) 0.7 X10'3 (0-0.9); MONOCYTES % (AUTO) 6.7 % (2-12); NEUTROPHILS # (AUTO) 9.3 X10'3 (1.8-7.7); NEUTROPHILS % (AUTO) 83.4 % (42-75); PLATELET COUNT 147 X10'3 (140-440); RED BLOOD COUNT 2.72 X10'6 (4.20-5.60); RED CELL DISTRIBUTION WIDTH 16.4 % (11.5-14.5); WHITE BLOOD COUNT 11.1 X10'3 (4.5-11.0)
[2020-01-21 22:31] LABS: TOTAL CELLS COUNTED 100
[2020-01-21 22:32] LABS: PLATELET ESTIMATE NORMAL
[2020-01-21 22:33] LABS: ANISOCYTOSIS 1+; TOXIC VACUOLATION 1+
[2020-01-22] VITALS (24 sets, daily range): BP systolic 71–130; BP diastolic 43–80
[2020-01-22 00:12] LABS: PARTIAL THROMBOPLASTIN TIME 43 SECONDS (22-32)
[2020-01-22] MEDS: pantoprazole 40MG/NS 100ML BAG 100 ML IV SCH ×5 (01:00→19:11)
[2020-01-22 01:04] LABS: ALANINE AMINOTRANSFERASE 68 U/L (12-78); ALBUMIN 1.8 G/DL (3.4-5.0); ALBUMIN/GLOBULIN RATIO 0.7 (1.1-1.5); ALKALINE PHOSPHATASE 137 IU/L (46-116); ANION GAP 12 (8-16); ASPARTATE AMINO TRANSFERASE 362 U/L (10-37); BLOOD UREA NITROGEN 9 MG/DL (7-18); BUN/CREATININE RATIO 9.5 (6.6-38.0); CALCIUM 6.6 MG/DL (8.5-10.1); CHLORIDE 110 MMOL/L (99-107); CREATININE 0.95 MG/DL (0.40-0.90); GLUCOSE 84 MG/DL (70-104); POTASSIUM 3.5 MMOL/L (3.5-5.1); SODIUM 141 MMOL/L (135-145); TOTAL CARBON DIOXIDE 19.4 MMOL/L (24-32); TOTAL PROTEIN 4.5 G/DL (6.4-8.2); eGFR 62 ML/MIN
[2020-01-22] MEDS: normal saline 1000ml 1,000 ML IV SCH ×2 (01:35→19:12)
[2020-01-22] MEDS: morphine 2 MG/ML inj. syringe IV PRN (02:01)
[2020-01-22 03:00] LABS: HEMOGLOBIN 8.4 g/dl (12.0-16.0); MONOCYTES # (AUTO) 0.7 X10'3 (0-0.9); RED BLOOD COUNT 2.67 X10'6 (4.20-5.60); RED CELL DISTRIBUTION WIDTH 16.7 % (11.5-14.5)
[2020-01-22 03:03] LABS: BASOPHILS % (AUTO) 0.2 % (0-1); EOSINOPHILS % (AUTO) 0.2 % (0-6); HEMATOCRIT 23.8 % (35.0-45.0); LYMPHOCYTES # (AUTO) 0.9 X10'3 (1.1-4.8); LYMPHOCYTES % (AUTO) 9.9 % (21-51); MEAN CORPUSCULAR HEMOGLOBIN 31.5 PG (27.0-31.0); MEAN CORPUSCULAR HGB CONC 35.4 g/dL (33.0-36.5); MONOCYTES % (AUTO) 7.7 % (2-12); NEUTROPHILS # (AUTO) 7.7 X10'3 (1.8-7.7); PLATELET COUNT 166 X10'3 (140-440); WHITE BLOOD COUNT 9.4 X10'3 (4.5-11.0)
[2020-01-22 03:05] LABS: PARTIAL THROMBOPLASTIN TIME 48 SECONDS (22-32)
[2020-01-22 03:16] LABS: ALANINE AMINOTRANSFERASE 70 U/L (12-78); ALBUMIN 1.8 G/DL (3.4-5.0); ALBUMIN/GLOBULIN RATIO 0.7 (1.1-1.5); ALKALINE PHOSPHATASE 139 IU/L (46-116); ASPARTATE AMINO TRANSFERASE 296 U/L (10-37); BILIRUBIN,TOTAL 1.8 MG/DL (0.1-1.0); BLOOD UREA NITROGEN 9 MG/DL (7-18); CALCIUM 6.5 MG/DL (8.5-10.1); CHLORIDE 111 MMOL/L (99-107); GLUCOSE 76 MG/DL (70-104); MAGNESIUM 1.3 MG/DL (1.5-2.4); PHOSPHORUS 3.9 MG/DL (2.3-4.5); TOTAL CARBON DIOXIDE 21.7 MMOL/L (24-32); TOTAL PROTEIN 4.4 G/DL (6.4-8.2); eGFR 66 ML/MIN
[2020-01-22 03:21] LABS: ANION GAP 8 (8-16); POTASSIUM 3.6 MMOL/L (3.5-5.1); SODIUM 141 MMOL/L (135-145)
[2020-01-22 03:55] LABS: TOTAL CELLS COUNTED 100
[2020-01-22 03:56] LABS: PLATELET ESTIMATE NORMAL
[2020-01-22 03:57] LABS: ANISOCYTOSIS 2+
[2020-01-22] MEDS: morphine 4 MG/ML inj SYRINge IV PRN (05:26)
--- NOTE | 2020-01-22 06:29 | NUR ---
Problems reprioritized. Patient report given, questions answered & plan of care reviewed with .
--- NOTE | 2020-01-22 06:30 | NUR ---
Patient in room CICU 2011. I have received report from Joselyn HOLDEN and had the opportunity to ask questions and assume patient care.
[2020-01-22] MEDS: pantoprazole 40 MG vial IV SCH (06:33)
[2020-01-22 06:38] LABS: BASOPHILS % (AUTO) 0.2 % (0-1); EOSINOPHILS % (AUTO) 0.1 % (0-6); HEMATOCRIT 23.6 % (35.0-45.0); HEMOGLOBIN 8.3 g/dl (12.0-16.0); MEAN CORPUSCULAR HEMOGLOBIN 31.4 PG (27.0-31.0); MEAN CORPUSCULAR HGB CONC 35.1 g/dL (33.0-36.5); MEAN CORPUSCULAR VOLUME 89.5 FL (78-98); MEAN PLATELET VOLUME 7.7 FL (7.4-10.4); MONOCYTES # (AUTO) 0.8 X10'3 (0-0.9); MONOCYTES % (AUTO) 9.2 % (2-12); NEUTROPHILS # (AUTO) 6.6 X10'3 (1.8-7.7); NEUTROPHILS % (AUTO) 78.5 % (42-75); PLATELET COUNT 163 X10'3 (140-440); RED BLOOD COUNT 2.63 X10'6 (4.20-5.60); RED CELL DISTRIBUTION WIDTH 16.7 % (11.5-14.5); WHITE BLOOD COUNT 8.4 X10'3 (4.5-11.0)
[2020-01-22 06:51] LABS: ALANINE AMINOTRANSFERASE 62 U/L (12-78); ALBUMIN 1.6 G/DL (3.4-5.0); ALBUMIN/GLOBULIN RATIO 0.6 (1.1-1.5); ALKALINE PHOSPHATASE 149 IU/L (46-116); ANION GAP 8 (8-16); ASPARTATE AMINO TRANSFERASE 226 U/L (10-37); BILIRUBIN,TOTAL 1.5 MG/DL (0.1-1.0); BLOOD UREA NITROGEN 10 MG/DL (7-18); BUN/CREATININE RATIO 11.4 (6.6-38.0); CALCIUM 6.3 MG/DL (8.5-10.1); CHLORIDE 113 MMOL/L (99-107); CREATININE 0.88 MG/DL (0.40-0.90); GLUCOSE 73 MG/DL (70-104); POTASSIUM 3.5 MMOL/L (3.5-5.1); SODIUM 142 MMOL/L (135-145); TOTAL CARBON DIOXIDE 21.3 MMOL/L (24-32); TOTAL PROTEIN 4.3 G/DL (6.4-8.2); eGFR 67 ML/MIN
[2020-01-22] MEDS ORDERED: levoTHYROXINE 25mcg tablet PO SCH (07:00)
[2020-01-22 07:24] LABS: PARTIAL THROMBOPLASTIN TIME 36 SECONDS (22-32)
[2020-01-22] MEDS: levoFLOXACIN-Levaquin 250mg/D5 50 ML IV SCH (07:28)
[2020-01-22 07:32] LABS: TOTAL CELLS COUNTED 100
[2020-01-22 07:33] LABS: ANISOCYTOSIS 1+; PLATELET ESTIMATE NORMAL; POLYCHROMASIA FEW
[2020-01-22] MEDS ORDERED: heparin, porcine 5000 units/ml vial SQ SCH (08:00)
[2020-01-22] MEDS: albumin (human) 25% 100 ML IV solution IV SCH ×2 (08:11→15:53)
[2020-01-22] MEDS: HYDROmorphone/NS 1 mg/ml CADD 50 ML IV SCH ×9 (08:59→23:00)
[2020-01-22 10:42] LABS: BASOPHILS % (AUTO) 0.2 % (0-1); EOSINOPHILS % (AUTO) 0.3 % (0-6); HEMATOCRIT 22.6 % (35.0-45.0); HEMOGLOBIN 7.9 g/dl (12.0-16.0); LYMPHOCYTES # (AUTO) 0.9 X10'3 (1.1-4.8); LYMPHOCYTES % (AUTO) 12.6 % (21-51); MEAN CORPUSCULAR HGB CONC 34.7 g/dL (33.0-36.5); MEAN CORPUSCULAR VOLUME 89.3 FL (78-98); MEAN PLATELET VOLUME 7.4 FL (7.4-10.4); MONOCYTES # (AUTO) 0.6 X10'3 (0-0.9); MONOCYTES % (AUTO) 8.7 % (2-12); NEUTROPHILS # (AUTO) 5.5 X10'3 (1.8-7.7); NEUTROPHILS % (AUTO) 78.2 % (42-75); PLATELET COUNT 162 X10'3 (140-440); RED BLOOD COUNT 2.53 X10'6 (4.20-5.60); RED CELL DISTRIBUTION WIDTH 17.3 % (11.5-14.5)
[2020-01-22 10:53] LABS: PARTIAL THROMBOPLASTIN TIME 33 SECONDS (22-32)
[2020-01-22 10:54] LABS: ALANINE AMINOTRANSFERASE 58 U/L (12-78); ALBUMIN 2.1 G/DL (3.4-5.0); ALBUMIN/GLOBULIN RATIO 0.8 (1.1-1.5); ALKALINE PHOSPHATASE 149 IU/L (46-116); ANION GAP 9 (8-16); ASPARTATE AMINO TRANSFERASE 175 U/L (10-37); BILIRUBIN,TOTAL 1.3 MG/DL (0.1-1.0); BLOOD UREA NITROGEN 10 MG/DL (7-18); BUN/CREATININE RATIO 12.3 (6.6-38.0); CALCIUM 6.3 MG/DL (8.5-10.1); CHLORIDE 111 MMOL/L (99-107); CREATININE 0.81 MG/DL (0.40-0.90); GLUCOSE 76 MG/DL (70-104); POTASSIUM 3.5 MMOL/L (3.5-5.1); SODIUM 141 MMOL/L (135-145); TOTAL CARBON DIOXIDE 20.7 MMOL/L (24-32); TOTAL PROTEIN 4.7 G/DL (6.4-8.2); eGFR 74 ML/MIN
[2020-01-22] MEDS ORDERED: CADD PCA waste documentation MC SCH (11:00)
--- NOTE | 2020-01-22 14:30 | NUR ---
Patient consistently desaturating on 2LNC to below 87%, increased to 3LNC.
[2020-01-22 15:12] LABS: HEMOGLOBIN 8.1 g/dl (12.0-16.0); LYMPHOCYTES # (AUTO) 0.8 X10'3 (1.1-4.8); MEAN CORPUSCULAR HEMOGLOBIN 31.5 PG (27.0-31.0); MONOCYTES # (AUTO) 0.7 X10'3 (0-0.9); NEUTROPHILS # (AUTO) 5.2 X10'3 (1.8-7.7); RED BLOOD COUNT 2.58 X10'6 (4.20-5.60)
[2020-01-22 15:14] LABS: BASOPHILS % (AUTO) 0.2 % (0-1); EOSINOPHILS % (AUTO) 0.5 % (0-6); HEMATOCRIT 23.3 % (35.0-45.0); LYMPHOCYTES % (AUTO) 12.4 % (21-51); MEAN CORPUSCULAR HGB CONC 34.8 g/dL (33.0-36.5); MEAN CORPUSCULAR VOLUME 90.5 FL (78-98); MEAN PLATELET VOLUME 7.5 FL (7.4-10.4); MONOCYTES % (AUTO) 9.9 % (2-12); PLATELET COUNT 164 X10'3 (140-440); RED CELL DISTRIBUTION WIDTH 17.4 % (11.5-14.5); WHITE BLOOD COUNT 6.7 X10'3 (4.5-11.0)
[2020-01-22 15:25] LABS: ALANINE AMINOTRANSFERASE 58 U/L (12-78); ALBUMIN 2.1 G/DL (3.4-5.0); ALBUMIN/GLOBULIN RATIO 0.8 (1.1-1.5); ALKALINE PHOSPHATASE 160 IU/L (46-116); ANION GAP 10 (8-16); ASPARTATE AMINO TRANSFERASE 158 U/L (10-37); BILIRUBIN,TOTAL 1.4 MG/DL (0.1-1.0); BLOOD UREA NITROGEN 11 MG/DL (7-18); BUN/CREATININE RATIO 14.3 (6.6-38.0); CALCIUM 6.8 MG/DL (8.5-10.1); CHLORIDE 111 MMOL/L (99-107); CREATININE 0.77 MG/DL (0.40-0.90); GLUCOSE 79 MG/DL (70-104); POTASSIUM 3.5 MMOL/L (3.5-5.1); SODIUM 141 MMOL/L (135-145); TOTAL PROTEIN 4.8 G/DL (6.4-8.2); eGFR 79 ML/MIN
[2020-01-22 18:28] LABS: BASOPHILS % (AUTO) 0.3 % (0-1); EOSINOPHILS % (AUTO) 0.4 % (0-6); HEMATOCRIT 23.4 % (35.0-45.0); LYMPHOCYTES # (AUTO) 1.5 X10'3 (1.1-4.8); LYMPHOCYTES % (AUTO) 20.3 % (21-51); MEAN CORPUSCULAR HGB CONC 34.2 g/dL (33.0-36.5); MEAN CORPUSCULAR VOLUME 90.7 FL (78-98); MEAN PLATELET VOLUME 7.6 FL (7.4-10.4); MONOCYTES # (AUTO) 0.8 X10'3 (0-0.9); MONOCYTES % (AUTO) 10.4 % (2-12); NEUTROPHILS # (AUTO) 5.1 X10'3 (1.8-7.7); NEUTROPHILS % (AUTO) 68.6 % (42-75); PLATELET COUNT 172 X10'3 (140-440); RED BLOOD COUNT 2.59 X10'6 (4.20-5.60); RED CELL DISTRIBUTION WIDTH 17.8 % (11.5-14.5); WHITE BLOOD COUNT 7.5 X10'3 (4.5-11.0)
--- NOTE | 2020-01-22 18:30 | NUR ---
Patient began to desaturate at 1730 requiring more than 5LNC to maintain O2 saturations >85%. Dr. Mcgregor called and ABG, CXR ordered. Awaiting ABG results. Patient denies being SOB, however does state that she "feels nervous" after the breathing treatment. Placed on NRB at 8L and currently sating 89% Report given to oncoming RN, Ronnie HOLDEN.
[2020-01-22 18:32] LABS: ALANINE AMINOTRANSFERASE 54 U/L (12-78); ALBUMIN 2.6 G/DL (3.4-5.0); ALKALINE PHOSPHATASE 166 IU/L (46-116); ANION GAP 11 (8-16); ASPARTATE AMINO TRANSFERASE 124 U/L (10-37); BILIRUBIN,TOTAL 1.5 MG/DL (0.1-1.0); BLOOD UREA NITROGEN 11 MG/DL (7-18); BUN/CREATININE RATIO 13.1 (6.6-38.0); CHLORIDE 110 MMOL/L (99-107); CREATININE 0.84 MG/DL (0.40-0.90); GLUCOSE 81 MG/DL (70-104); POTASSIUM 3.4 MMOL/L (3.5-5.1); SODIUM 140 MMOL/L (135-145); TOTAL CARBON DIOXIDE 18.6 MMOL/L (24-32); TOTAL PROTEIN 5.3 G/DL (6.4-8.2); eGFR 71 ML/MIN
[2020-01-22] MEDS ORDERED: guaiFENesin/DM 10ml UD oral syrup PO PRN (19:15)
--- NOTE | 2020-01-22 19:15 | NUR ---
RN Note -MD Communication Dr. Mcgregor at bedside. Pt. on nonrebreather at 15L.
[2020-01-22 19:21] LABS: ABG BASE EXCESS -11.2 mmol/L (-2.0-3.0); ABG OXYGEN SATURATION 90.3 % (95-98); ABG PCO2 (T) 34.9 mmHg (35.0-45.0); ABG PH (T) 7.252 (7.350-7.450); ABG PO2 (T) 69.1 mmHg (83-108); FCOHb 0.2 % (0.5-1.5); FMetHb 0.3 % (0.3-1.12); FO2Hb 89.8 % (94-100); TOTAL HEMOGLOBIN 7.8 G/dl (12.0-16.0)
[2020-01-22 20:10] LABS: CLARITY,URINE SLIGHTLY CLOUDY (Clear); COLOR,URINE YELLOW (Yellow); GLUCOSE, URINE NEGATIVE (Neg); KETONES,URINE TRACE mg/dl (Neg); LEUKOCYTE ESTERASE ,URINE NEGATIVE (Neg); NITRITES, URINE NEGATIVE (Neg); OCCULT BLOOD,URINE MODERATE (Neg); PH,URINE 5.5 (4.8-8.0); PROTEIN,URINE 30 mg/dl (Neg)
[2020-01-22 20:26] LABS: UA COLLECTION TYPE NON-SPECIFIED
[2020-01-22 20:32] LABS: BACTERIA,URINE NONE SEEN /HPF (Neg); RBC,URINE 0-2 /HPF (0-2); RENAL CELLS, URINE FEW /HPF; SQUAMOUS EPITHELIAL CELL,UR FEW /LPF (FEW); TRANSITIONAL EPI CELLS,URINE FEW /HPF; WBC,URINE 0-4 /HPF (0-4)
[2020-01-22] MEDS ORDERED: furosemide 20 MG/2 ML vial IV ONE (20:45)
--- NOTE | 2020-01-22 21:25 | NUR ---
RN Note -MD Communication November Lolis at bedside. Pt has increased work of breathing and is desaturating. Initiating BiPAP.
[2020-01-22] MEDS: heparin 25,000 UNIT/250ml bag 250 ML IV SCH (21:40)
[2020-01-22 22:00] LABS: ABG BASE EXCESS -10.6 mmol/L (-2.0-3.0); ABG HCO3 16.3 mmol/L (22.0-26.0); ABG OXYGEN SATURATION 82.8 % (95-98); ABG PCO2 (T) 39.6 mmHg (35.0-45.0); FCOHb 0.3 % (0.5-1.5); FMetHb 0.3 % (0.3-1.12); FO2Hb 82.3 % (94-100); PATIENT TEMPERATURE 36.7; TOTAL HEMOGLOBIN 9.2 G/dl (12.0-16.0)
[2020-01-22] MEDS ORDERED: LORazepam 2 mg/ml vial IV ONE (22:10)
[2020-01-22 22:15] LABS: BASOPHILS % (AUTO) 0.3 % (0-1); EOSINOPHILS % (AUTO) 0.2 % (0-6); HEMATOCRIT 25.1 % (35.0-45.0); HEMOGLOBIN 8.8 g/dl (12.0-16.0); LYMPHOCYTES # (AUTO) 0.7 X10'3 (1.1-4.8); LYMPHOCYTES % (AUTO) 8.8 % (21-51); MEAN CORPUSCULAR HEMOGLOBIN 31.8 PG (27.0-31.0); MEAN CORPUSCULAR HGB CONC 34.9 g/dL (33.0-36.5); MEAN CORPUSCULAR VOLUME 90.9 FL (78-98); MEAN PLATELET VOLUME 7.6 FL (7.4-10.4); MONOCYTES # (AUTO) 0.5 X10'3 (0-0.9); MONOCYTES % (AUTO) 6.1 % (2-12); NEUTROPHILS # (AUTO) 6.5 X10'3 (1.8-7.7); NEUTROPHILS % (AUTO) 84.6 % (42-75); PLATELET COUNT 202 X10'3 (140-440); RED BLOOD COUNT 2.76 X10'6 (4.20-5.60); RED CELL DISTRIBUTION WIDTH 17.2 % (11.5-14.5); WHITE BLOOD COUNT 7.7 X10'3 (4.5-11.0)
[2020-01-22 22:42] LABS: ALANINE AMINOTRANSFERASE 51 U/L (12-78); ALBUMIN 2.4 G/DL (3.4-5.0); ALBUMIN/GLOBULIN RATIO 0.9 (1.1-1.5); ALKALINE PHOSPHATASE 178 IU/L (46-116); ANION GAP 13 (8-16); ASPARTATE AMINO TRANSFERASE 134 U/L (10-37); BILIRUBIN,TOTAL 1.5 MG/DL (0.1-1.0); BLOOD UREA NITROGEN 11 MG/DL (7-18); BUN/CREATININE RATIO 13.8 (6.6-38.0); CHLORIDE 109 MMOL/L (99-107); GLUCOSE 93 MG/DL (70-104); POTASSIUM 3.2 MMOL/L (3.5-5.1); SODIUM 139 MMOL/L (135-145); TOTAL CARBON DIOXIDE 17.4 MMOL/L (24-32); TOTAL PROTEIN 5.2 G/DL (6.4-8.2); eGFR 75 ML/MIN
[2020-01-22] MEDS ORDERED: albuterol 2.5 MG/3 ML nebule NEB PRN (23:10)
--- NOTE | 2020-01-22 23:15 | NUR ---
RN Note -Pt intubated
[2020-01-22 23:26] LABS: ABG BASE EXCESS -11.1 mmol/L (-2.0-3.0); ABG HCO3 16.1 mmol/L (22.0-26.0); ABG OXYGEN SATURATION 87.3 % (95-98); ABG PCO2 (T) 42.1 mmHg (35.0-45.0); ABG PH (T) 7.201 (7.350-7.450); ABG PO2 (T) 63.6 mmHg (83-108); FCOHb 0.3 % (0.5-1.5); FMetHb 0.2 % (0.3-1.12); FO2Hb 86.9 % (94-100); PATIENT TEMPERATURE 37.3; PEEP 18 cm H2O; RESPIRATORY RATE 24 b/min; TIDAL VOLUME 350 mL
[2020-01-22] MEDS ORDERED: VANCOMYCIN 750MG IV in NS 250 ML IV SCH (23:40)
[2020-01-23] VITALS (28 sets, daily range): BP systolic 66–167; BP diastolic 32–104
[2020-01-23] MEDS: albumin (human) 25% 100 ML IV solution IV SCH ×3 (00:53→15:46)
[2020-01-23] MEDS: NORepinephrine 8mg/ 250ml NS 250 ML IV PRN ×3 (00:54→19:59)
[2020-01-23 01:16] LABS: ABG BASE EXCESS -9.6 mmol/L (-2.0-3.0); ABG HCO3 16.3 mmol/L (22.0-26.0); ABG OXYGEN SATURATION 88.7 % (95-98); ABG PCO2 (T) 34.9 mmHg (35.0-45.0); ABG PH (T) 7.286 (7.350-7.450); ABG PO2 (T) 61.1 mmHg (83-108); FCOHb 0.3 % (0.5-1.5); FMetHb 0.3 % (0.3-1.12); FO2Hb 88.2 % (94-100); PATIENT TEMPERATURE 36.8; PEEP 15 cm H2O; RESPIRATORY RATE 24 b/min; TIDAL VOLUME 350 mL; TOTAL HEMOGLOBIN 8.5 G/dl (12.0-16.0)
[2020-01-23] MEDS: cefepime 2g/NS 100ml ADVANTAGE 100 ML IV SCH ×3 (01:55→19:36)
[2020-01-23] MEDS: pantoprazole 40MG/NS 100ML BAG 100 ML IV SCH ×5 (01:55→22:44)
[2020-01-23 02:27] LABS: BASOPHILS % (AUTO) 0.2 % (0-1); EOSINOPHILS # (AUTO) 0.1 X10'3 (0-0.9); EOSINOPHILS % (AUTO) 0.9 % (0-6); HEMATOCRIT 22.1 % (35.0-45.0); HEMOGLOBIN 7.7 g/dl (12.0-16.0); LYMPHOCYTES # (AUTO) 0.8 X10'3 (1.1-4.8); LYMPHOCYTES % (AUTO) 9.2 % (21-51); MEAN CORPUSCULAR HEMOGLOBIN 31.7 PG (27.0-31.0); MEAN CORPUSCULAR HGB CONC 35.1 g/dL (33.0-36.5); MEAN CORPUSCULAR VOLUME 90.4 FL (78-98); MEAN PLATELET VOLUME 7.5 FL (7.4-10.4); MONOCYTES # (AUTO) 0.7 X10'3 (0-0.9); MONOCYTES % (AUTO) 7.7 % (2-12); PLATELET COUNT 203 X10'3 (140-440); RED BLOOD COUNT 2.44 X10'6 (4.20-5.60); RED CELL DISTRIBUTION WIDTH 17.6 % (11.5-14.5); WHITE BLOOD COUNT 8.6 X10'3 (4.5-11.0)
[2020-01-23 02:40] LABS: ALANINE AMINOTRANSFERASE 42 U/L (12-78); ALBUMIN 2.6 G/DL (3.4-5.0); ALBUMIN/GLOBULIN RATIO 1.1 (1.1-1.5); ALKALINE PHOSPHATASE 152 IU/L (46-116); ANION GAP 12 (8-16); ASPARTATE AMINO TRANSFERASE 106 U/L (10-37); BILIRUBIN,TOTAL 1.6 MG/DL (0.1-1.0); BLOOD UREA NITROGEN 10 MG/DL (7-18); BUN/CREATININE RATIO 13.7 (6.6-38.0); CALCIUM 6.9 MG/DL (8.5-10.1); CHLORIDE 109 MMOL/L (99-107); CREATININE 0.73 MG/DL (0.40-0.90); GLUCOSE 103 MG/DL (70-104); MAGNESIUM 2.5 MG/DL (1.5-2.4); PHOSPHORUS 2.7 MG/DL (2.3-4.5); SODIUM 141 MMOL/L (135-145); TOTAL CARBON DIOXIDE 19.8 MMOL/L (24-32); eGFR 84 ML/MIN
[2020-01-23 02:41] LABS: POTASSIUM 2.9 MMOL/L (3.5-5.1)
--- NOTE | 2020-01-23 03:30 | NUR ---
NAVIN Note -pt placed on Rotoprone
[2020-01-23 03:45] LABS: TOTAL CELLS COUNTED 100
[2020-01-23 03:46] LABS: ANISOCYTOSIS 2+; PLATELET ESTIMATE NORMAL
[2020-01-23] MEDS: ipratropium/albuterol 3ml nebule NEB SCH ×6 (04:06→22:29)
[2020-01-23] MEDS: potassium Cl 20mEq/100mL bag 100 ML IV PRN ×9 (04:11→22:58)
[2020-01-23] MEDS: FENTANYL-0.9 % NACL/PF 100 ML IV PRN ×5 (05:27→19:55)
[2020-01-23] MEDS: midazolam 100mg in NS 100ml 100 ML IV PRN ×5 (05:28→19:55)
[2020-01-23 06:55] LABS: BASOPHILS % (AUTO) 0.4 % (0-1); EOSINOPHILS % (AUTO) 0.2 % (0-6); HEMATOCRIT 22.1 % (35.0-45.0); HEMOGLOBIN 7.7 g/dl (12.0-16.0); LYMPHOCYTES % (AUTO) 10.2 % (21-51); MEAN CORPUSCULAR HEMOGLOBIN 31.9 PG (27.0-31.0); MEAN CORPUSCULAR VOLUME 91.1 FL (78-98); MEAN PLATELET VOLUME 7.3 FL (7.4-10.4); MONOCYTES # (AUTO) 0.9 X10'3 (0-0.9); MONOCYTES % (AUTO) 9.4 % (2-12); NEUTROPHILS # (AUTO) 7.8 X10'3 (1.8-7.7); NEUTROPHILS % (AUTO) 79.8 % (42-75); PLATELET COUNT 214 X10'3 (140-440); RED BLOOD COUNT 2.43 X10'6 (4.20-5.60); RED CELL DISTRIBUTION WIDTH 17.9 % (11.5-14.5); WHITE BLOOD COUNT 9.7 X10'3 (4.5-11.0)
[2020-01-23 07:11] LABS: ALANINE AMINOTRANSFERASE 42 U/L (12-78); ALBUMIN 2.4 G/DL (3.4-5.0); ALKALINE PHOSPHATASE 164 IU/L (46-116); ANION GAP 11 (8-16); ASPARTATE AMINO TRANSFERASE 104 U/L (10-37); BILIRUBIN,TOTAL 1.8 MG/DL (0.1-1.0); BLOOD UREA NITROGEN 10 MG/DL (7-18); BUN/CREATININE RATIO 14.9 (6.6-38.0); CALCIUM 6.6 MG/DL (8.5-10.1); CHLORIDE 111 MMOL/L (99-107); CREATININE 0.67 MG/DL (0.40-0.90); GLUCOSE 107 MG/DL (70-104); POTASSIUM 3.7 MMOL/L (3.5-5.1); SODIUM 142 MMOL/L (135-145); TOTAL CARBON DIOXIDE 19.8 MMOL/L (24-32); TOTAL PROTEIN 4.7 G/DL (6.4-8.2); eGFR > 90 ML/MIN
[2020-01-23] MEDS: nicotine 21mg patch - 24 hr TD SCH (07:36)
[2020-01-23] MEDS: levoTHYROXINE sod inj. 100mcg/5 ml vial IV SCH (07:41)
[2020-01-23 08:06] LABS: ABG BASE EXCESS -9.3 mmol/L (-2.0-3.0); ABG HCO3 16.1 mmol/L (22.0-26.0); ABG OXYGEN SATURATION 96.1 % (95-98); ABG PCO2 (T) 33.1 mmHg (35.0-45.0); ABG PH (T) 7.305 (7.350-7.450); ABG PO2 (T) 93.6 mmHg (83-108); FCOHb 0.3 % (0.5-1.5); FMetHb 0.3 % (0.3-1.12); FO2Hb 95.5 % (94-100); PEEP 15 cm H2O; RESPIRATORY RATE 24 b/min; TIDAL VOLUME 350 mL; TOTAL HEMOGLOBIN 8.2 G/dl (12.0-16.0)
[2020-01-23] MEDS: normal saline 1000ml 1,000 ML IV SCH ×2 (08:23→21:43)
[2020-01-23] MEDS ORDERED: furosemide 40mg/4ml inj IV ONE (08:30)
[2020-01-23 10:45] LABS: ANISOCYTOSIS 1+; NUCLEATED RED BLOOD CELLS 2 /100WBC (0-0); PLATELET ESTIMATE NORMAL; TOTAL CELLS COUNTED 100
[2020-01-23 10:46] LABS: POLYCHROMASIA 1+
[2020-01-23 10:58] LABS: BASOPHILS % (AUTO) 0.2 % (0-1); EOSINOPHILS % (AUTO) 0.2 % (0-6); HEMATOCRIT 25.3 % (35.0-45.0); HEMOGLOBIN 8.7 g/dl (12.0-16.0); LYMPHOCYTES # (AUTO) 1.4 X10'3 (1.1-4.8); LYMPHOCYTES % (AUTO) 10.7 % (21-51); MEAN CORPUSCULAR HGB CONC 34.2 g/dL (33.0-36.5); MEAN CORPUSCULAR VOLUME 90.7 FL (78-98); MEAN PLATELET VOLUME 7.5 FL (7.4-10.4); MONOCYTES # (AUTO) 1.1 X10'3 (0-0.9); NEUTROPHILS # (AUTO) 10.1 X10'3 (1.8-7.7); NEUTROPHILS % (AUTO) 79.9 % (42-75); PLATELET COUNT 241 X10'3 (140-440); RED BLOOD COUNT 2.79 X10'6 (4.20-5.60); RED CELL DISTRIBUTION WIDTH 17.4 % (11.5-14.5); WHITE BLOOD COUNT 12.6 X10'3 (4.5-11.0)
[2020-01-23 11:15] LABS: ALANINE AMINOTRANSFERASE 44 U/L (12-78); ALBUMIN 2.5 G/DL (3.4-5.0); ALBUMIN/GLOBULIN RATIO 0.9 (1.1-1.5); ALKALINE PHOSPHATASE 183 IU/L (46-116); ANION GAP 12 (8-16); ASPARTATE AMINO TRANSFERASE 108 U/L (10-37); BLOOD UREA NITROGEN 10 MG/DL (7-18); BUN/CREATININE RATIO 15.4 (6.6-38.0); CALCIUM 6.9 MG/DL (8.5-10.1); CHLORIDE 110 MMOL/L (99-107); CREATININE 0.65 MG/DL (0.40-0.90); GLUCOSE 126 MG/DL (70-104); POTASSIUM 3.4 MMOL/L (3.5-5.1); SODIUM 141 MMOL/L (135-145); TOTAL CARBON DIOXIDE 18.6 MMOL/L (24-32); TOTAL PROTEIN 5.3 G/DL (6.4-8.2); eGFR > 90 ML/MIN
--- NOTE | 2020-01-23 12:46 | NUR ---
Initial: Pt admitted with anemia, abdominal bleed, and coagulopathy with hx PVT. Per [employer] notes pt had repeat ABG showing worsening hypoxia, pt was intubated and placed on rotoprone. Per MD notes pt with probable TRALI related ARDS. Pt at high risk for continued bleeds however too unstable for EGD at this time per MD notes. Pt with a low Hua of 11, per physical assessment pt with BLE 2+ edema however skin is intact. No TF at this time. Will continue to follow closely and make recommendations as appropriate. Recommendations: 1) Nutrition support to meet nutrient needs if expected prolonged intubation 2) PO diet advancement to low fat as medically indicated following extubation 3) Wt per rx Addendum: 01/23/20 at [address] Amended: Links added.
[2020-01-23] MEDS: VANCOMYCIN 750MG IV in NS 250 ML IV SCH (13:46)
[2020-01-23 14:41] LABS: BASOPHILS % (AUTO) 0.2 % (0-1); EOSINOPHILS % (AUTO) 0.4 % (0-6); HEMATOCRIT 25.4 % (35.0-45.0); HEMOGLOBIN 8.8 g/dl (12.0-16.0); LYMPHOCYTES # (AUTO) 1.1 X10'3 (1.1-4.8); LYMPHOCYTES % (AUTO) 10.1 % (21-51); MEAN CORPUSCULAR HGB CONC 34.4 g/dL (33.0-36.5); MEAN CORPUSCULAR VOLUME 90.1 FL (78-98); MEAN PLATELET VOLUME 7.3 FL (7.4-10.4); MONOCYTES # (AUTO) 1.2 X10'3 (0-0.9); MONOCYTES % (AUTO) 10.6 % (2-12); NEUTROPHILS # (AUTO) 8.7 X10'3 (1.8-7.7); NEUTROPHILS % (AUTO) 78.7 % (42-75); PLATELET COUNT 204 X10'3 (140-440); RED BLOOD COUNT 2.82 X10'6 (4.20-5.60); RED CELL DISTRIBUTION WIDTH 16.9 % (11.5-14.5); WHITE BLOOD COUNT 11.1 X10'3 (4.5-11.0)
[2020-01-23 14:54] LABS: ALANINE AMINOTRANSFERASE 42 U/L (12-78); ALBUMIN 2.9 G/DL (3.4-5.0); ALBUMIN/GLOBULIN RATIO 1.2 (1.1-1.5); ALKALINE PHOSPHATASE 172 IU/L (46-116); ANION GAP 12 (8-16); ASPARTATE AMINO TRANSFERASE 92 U/L (10-37); BILIRUBIN,TOTAL 2.6 MG/DL (0.1-1.0); BLOOD UREA NITROGEN 9 MG/DL (7-18); BUN/CREATININE RATIO 12.2 (6.6-38.0); CALCIUM 6.9 MG/DL (8.5-10.1); CHLORIDE 110 MMOL/L (99-107); CREATININE 0.74 MG/DL (0.40-0.90); GLUCOSE 118 MG/DL (70-104); SODIUM 144 MMOL/L (135-145); TOTAL CARBON DIOXIDE 22.3 MMOL/L (24-32); TOTAL PROTEIN 5.4 G/DL (6.4-8.2); eGFR 82 ML/MIN
[2020-01-23 14:56] LABS: POTASSIUM 2.7 MMOL/L (3.5-5.1)
[2020-01-23] MEDS ORDERED: bisacodyl 10mg suppository rectal RC PRN (16:25)
[2020-01-23] MEDS: NORMAL SALINE IV SCH (17:22)
[2020-01-23] MEDS: OCTREOTIDE IV SCH (17:22)
--- NOTE | 2020-01-23 18:17 | NUR ---
Problems reprioritized. Patient report given, questions answered & plan of care reviewed with Fuad RN.
[2020-01-23 18:18] LABS: HEMOGLOBIN 8.4 g/dl (12.0-16.0); RED CELL DISTRIBUTION WIDTH 16.6 % (11.5-14.5); WHITE BLOOD COUNT 11.2 X10'3 (4.5-11.0)
[2020-01-23 18:19] LABS: BASOPHILS % (AUTO) 0.3 % (0-1); EOSINOPHILS # (AUTO) 0.1 X10'3 (0-0.9); EOSINOPHILS % (AUTO) 0.7 % (0-6); HEMATOCRIT 23.5 % (35.0-45.0); LYMPHOCYTES # (AUTO) 1.2 X10'3 (1.1-4.8); LYMPHOCYTES % (AUTO) 11.1 % (21-51); MEAN CORPUSCULAR HGB CONC 35.7 g/dL (33.0-36.5); MEAN CORPUSCULAR VOLUME 89.6 FL (78-98); MEAN PLATELET VOLUME 7.2 FL (7.4-10.4); MONOCYTES # (AUTO) 1.1 X10'3 (0-0.9); MONOCYTES % (AUTO) 10.2 % (2-12); NEUTROPHILS # (AUTO) 8.7 X10'3 (1.8-7.7); NEUTROPHILS % (AUTO) 77.7 % (42-75); PLATELET COUNT 191 X10'3 (140-440); RED BLOOD COUNT 2.62 X10'6 (4.20-5.60)
[2020-01-23 22:28] LABS: BASOPHILS # (AUTO) 0.1 X10'3 (0-0.2); BASOPHILS % (AUTO) 0.6 % (0-1); EOSINOPHILS # (AUTO) 0.1 X10'3 (0-0.9); EOSINOPHILS % (AUTO) 0.6 % (0-6); HEMATOCRIT 23.4 % (35.0-45.0); HEMOGLOBIN 8.3 g/dl (12.0-16.0); LYMPHOCYTES # (AUTO) 1.2 X10'3 (1.1-4.8); LYMPHOCYTES % (AUTO) 11.5 % (21-51); MEAN CORPUSCULAR HGB CONC 35.3 g/dL (33.0-36.5); MEAN CORPUSCULAR VOLUME 90.7 FL (78-98); MEAN PLATELET VOLUME 7.1 FL (7.4-10.4); MONOCYTES % (AUTO) 9.6 % (2-12); NEUTROPHILS # (AUTO) 8.1 X10'3 (1.8-7.7); NEUTROPHILS % (AUTO) 77.7 % (42-75); PLATELET COUNT 179 X10'3 (140-440); RED BLOOD COUNT 2.58 X10'6 (4.20-5.60); RED CELL DISTRIBUTION WIDTH 16.7 % (11.5-14.5); WHITE BLOOD COUNT 10.4 X10'3 (4.5-11.0)
[2020-01-23 22:42] LABS: ALANINE AMINOTRANSFERASE 32 U/L (12-78); ALBUMIN 2.7 G/DL (3.4-5.0); ALBUMIN/GLOBULIN RATIO 1.2 (1.1-1.5); ALKALINE PHOSPHATASE 159 IU/L (46-116); ANION GAP 8 (8-16); ASPARTATE AMINO TRANSFERASE 68 U/L (10-37); BILIRUBIN,TOTAL 2.8 MG/DL (0.1-1.0); BLOOD UREA NITROGEN 9 MG/DL (7-18); BUN/CREATININE RATIO 14.8 (6.6-38.0); CALCIUM 7.2 MG/DL (8.5-10.1); CHLORIDE 112 MMOL/L (99-107); CREATININE 0.61 MG/DL (0.40-0.90); GLUCOSE 104 MG/DL (70-104); POTASSIUM 3.4 MMOL/L (3.5-5.1); SODIUM 142 MMOL/L (135-145); TOTAL CARBON DIOXIDE 22.2 MMOL/L (24-32); eGFR > 90 ML/MIN
[2020-01-24] VITALS (24 sets, daily range): BP systolic 56–139; BP diastolic 41–96
[2020-01-24] MEDS: albumin (human) 25% 100 ML IV solution IV SCH ×3 (00:26→16:40)
[2020-01-24] MEDS: pantoprazole 40MG/NS 100ML BAG 100 ML IV SCH ×2 (01:00→07:30)
[2020-01-24] MEDS: heparin 25,000 UNIT/250ml bag 250 ML IV SCH (01:20)
[2020-01-24] MEDS: FENTANYL-0.9 % NACL/PF 100 ML IV PRN ×5 (01:21→21:25)
[2020-01-24] MEDS: midazolam 100mg in NS 100ml 100 ML IV PRN ×5 (01:21→21:26)
[2020-01-24] MEDS: potassium Cl 20mEq/100mL bag 100 ML IV PRN ×3 (01:29→12:31)
[2020-01-24] MEDS: VANCOMYCIN 750MG IV in NS 250 ML IV SCH ×2 (01:58→14:18)
[2020-01-24] MEDS: mineral oil/petrolatum ophthal oint EACHEYE SCH ×4 (02:06→20:53)
[2020-01-24] MEDS: ipratropium/albuterol 3ml nebule NEB SCH ×6 (02:30→22:30)
[2020-01-24 02:59] LABS: EOSINOPHILS # (AUTO) 0.1 X10'3 (0-0.9); HEMATOCRIT 22.6 % (35.0-45.0); LYMPHOCYTES # (AUTO) 1.1 X10'3 (1.1-4.8)
[2020-01-24 03:01] LABS: BASOPHILS % (AUTO) 0.3 % (0-1); EOSINOPHILS % (AUTO) 0.8 % (0-6); LYMPHOCYTES % (AUTO) 11.4 % (21-51); MEAN CORPUSCULAR HGB CONC 35.4 g/dL (33.0-36.5); MEAN CORPUSCULAR VOLUME 90.6 FL (78-98); MEAN PLATELET VOLUME 7.3 FL (7.4-10.4); MONOCYTES % (AUTO) 9.7 % (2-12); NEUTROPHILS # (AUTO) 7.8 X10'3 (1.8-7.7); NEUTROPHILS % (AUTO) 77.8 % (42-75); PLATELET COUNT 176 X10'3 (140-440); RED CELL DISTRIBUTION WIDTH 16.9 % (11.5-14.5)
[2020-01-24 03:06] LABS: ABG BASE EXCESS -6.5 mmol/L (-2.0-3.0); ABG HCO3 18.5 mmol/L (22.0-26.0); ABG OXYGEN SATURATION 93.3 % (95-98); ABG PH (T) 7.352 (7.350-7.450); ABG PO2 (T) 69.2 mmHg (83-108); FCOHb 0.3 % (0.5-1.5); FMetHb 0.2 % (0.3-1.12); FO2Hb 92.8 % (94-100); PATIENT TEMPERATURE 36.7; PEEP 12 cm H2O; RESPIRATORY RATE 24 b/min; TIDAL VOLUME 350 mL; TOTAL HEMOGLOBIN 8.3 G/dl (12.0-16.0)
[2020-01-24 03:11] LABS: ALANINE AMINOTRANSFERASE 30 U/L (12-78); ALBUMIN 2.9 G/DL (3.4-5.0); ALBUMIN/GLOBULIN RATIO 1.3 (1.1-1.5); ALKALINE PHOSPHATASE 148 IU/L (46-116); ANION GAP 7 (8-16); ASPARTATE AMINO TRANSFERASE 60 U/L (10-37); BILIRUBIN,TOTAL 2.7 MG/DL (0.1-1.0); BLOOD UREA NITROGEN 8 MG/DL (7-18); BUN/CREATININE RATIO 13.3 (6.6-38.0); CHLORIDE 113 MMOL/L (99-107); GLUCOSE 89 MG/DL (70-104); MAGNESIUM 1.7 MG/DL (1.5-2.4); PHOSPHORUS 1.5 MG/DL (2.3-4.5); POTASSIUM 3.9 MMOL/L (3.5-5.1); SODIUM 142 MMOL/L (135-145); TOTAL CARBON DIOXIDE 22.5 MMOL/L (24-32); TOTAL PROTEIN 5.1 G/DL (6.4-8.2); eGFR > 90 ML/MIN
[2020-01-24 03:26] LABS: TOTAL CELLS COUNTED 100
[2020-01-24 03:27] LABS: ANISOCYTOSIS 1+; LARGE PLATELETS FEW; PLATELET ESTIMATE NORMAL
--- NOTE | 2020-01-24 05:29 | NUR ---
RN Note -Shift Summary Pt started desaturating around 2300. Titrated FiO2 from 50% to 65%. Saturation improved over the next couple of hours. Titrated FiO2 down to 60%. OG tube was clogged at the beginning of the shift. Used syringe to pull out thick brown gastric contents which smelled like stool. Flushed tubing and placed back on low intermittent suction. Gastric contents at this time are thin and green. Abdomen firm, bowel sounds are hypoactive. Intraabdominal pressure measurement 6 mm. Pt's temp has been trending up throughout shift. 38.0 degrees at 0500. Tylenol given.
[2020-01-24 06:38] LABS: BASOPHILS % (AUTO) 0.4 % (0-1); EOSINOPHILS # (AUTO) 0.1 X10'3 (0-0.9); EOSINOPHILS % (AUTO) 0.7 % (0-6); HEMATOCRIT 23.1 % (35.0-45.0); LYMPHOCYTES # (AUTO) 1.1 X10'3 (1.1-4.8); LYMPHOCYTES % (AUTO) 10.4 % (21-51); MEAN CORPUSCULAR HEMOGLOBIN 31.5 PG (27.0-31.0); MEAN CORPUSCULAR HGB CONC 34.7 g/dL (33.0-36.5); MEAN CORPUSCULAR VOLUME 90.6 FL (78-98); MEAN PLATELET VOLUME 7.3 FL (7.4-10.4); MONOCYTES # (AUTO) 1.1 X10'3 (0-0.9); MONOCYTES % (AUTO) 10.3 % (2-12); NEUTROPHILS # (AUTO) 8.7 X10'3 (1.8-7.7); NEUTROPHILS % (AUTO) 78.2 % (42-75); PLATELET COUNT 175 X10'3 (140-440); RED BLOOD COUNT 2.55 X10'6 (4.20-5.60); WHITE BLOOD COUNT 11.1 X10'3 (4.5-11.0)
[2020-01-24 06:56] LABS: ALANINE AMINOTRANSFERASE 30 U/L (12-78); ALBUMIN 2.7 G/DL (3.4-5.0); ALBUMIN/GLOBULIN RATIO 1.2 (1.1-1.5); ALKALINE PHOSPHATASE 158 IU/L (46-116); ANION GAP 10 (8-16); ASPARTATE AMINO TRANSFERASE 58 U/L (10-37); BILIRUBIN,TOTAL 2.9 MG/DL (0.1-1.0); BLOOD UREA NITROGEN 7 MG/DL (7-18); BUN/CREATININE RATIO 11.5 (6.6-38.0); CALCIUM 6.8 MG/DL (8.5-10.1); CHLORIDE 113 MMOL/L (99-107); CREATININE 0.61 MG/DL (0.40-0.90); GLUCOSE 78 MG/DL (70-104); POTASSIUM 3.5 MMOL/L (3.5-5.1); SODIUM 146 MMOL/L (135-145); TOTAL CARBON DIOXIDE 23.4 MMOL/L (24-32); eGFR > 90 ML/MIN
[2020-01-24] MEDS: CEFEPIME 2gm in D5W 50mL 50 ML IV SCH ×2 (07:29→20:52)
[2020-01-24] MEDS: nicotine 21mg patch - 24 hr TD SCH (07:30)
[2020-01-24] MEDS: levoTHYROXINE sod inj. 100mcg/5 ml vial IV SCH (07:30)
[2020-01-24] MEDS ORDERED: thiamine 100mg/ml 2ml inj. IV SCH (09:30)
[2020-01-24] MEDS: MVI, adult No.4 with vit. K 10 ML in dextrose 5% water 500ml 490 ML IV SCH ×2 (10:18)
[2020-01-24] MEDS: thiamine inj. 100 MG in normal saline 100ml IV soln 99 ML IV SCH (10:18)
[2020-01-24 10:42] LABS: BASOPHILS # (AUTO) 0.1 X10'3 (0-0.2); BASOPHILS % (AUTO) 0.9 % (0-1); EOSINOPHILS # (AUTO) 0.1 X10'3 (0-0.9); HEMATOCRIT 23.3 % (35.0-45.0); LYMPHOCYTES # (AUTO) 1.3 X10'3 (1.1-4.8); LYMPHOCYTES % (AUTO) 10.4 % (21-51); MEAN CORPUSCULAR HEMOGLOBIN 31.3 PG (27.0-31.0); MEAN CORPUSCULAR HGB CONC 34.4 g/dL (33.0-36.5); MEAN CORPUSCULAR VOLUME 90.9 FL (78-98); MEAN PLATELET VOLUME 7.2 FL (7.4-10.4); MONOCYTES # (AUTO) 1.2 X10'3 (0-0.9); MONOCYTES % (AUTO) 9.6 % (2-12); NEUTROPHILS # (AUTO) 9.5 X10'3 (1.8-7.7); NEUTROPHILS % (AUTO) 78.1 % (42-75); PLATELET COUNT 171 X10'3 (140-440); RED BLOOD COUNT 2.56 X10'6 (4.20-5.60); RED CELL DISTRIBUTION WIDTH 16.9 % (11.5-14.5); WHITE BLOOD COUNT 12.2 X10'3 (4.5-11.0)
[2020-01-24 10:47] LABS: ANISOCYTOSIS 1+; PLATELET ESTIMATE NORMAL; POLYCHROMASIA 1+; TOTAL CELLS COUNTED 100; TOXIC GRANULATION 1+
[2020-01-24 10:57] LABS: ALANINE AMINOTRANSFERASE 28 U/L (12-78); ALBUMIN/GLOBULIN RATIO 1.4 (1.1-1.5); ALKALINE PHOSPHATASE 150 IU/L (46-116); ANION GAP 11 (8-16); ASPARTATE AMINO TRANSFERASE 56 U/L (10-37); BILIRUBIN,TOTAL 3.1 MG/DL (0.1-1.0); BLOOD UREA NITROGEN 5 MG/DL (7-18); BUN/CREATININE RATIO 8.6 (6.6-38.0); CALCIUM 7.1 MG/DL (8.5-10.1); CHLORIDE 113 MMOL/L (99-107); CREATININE 0.58 MG/DL (0.40-0.90); GLUCOSE 77 MG/DL (70-104); POTASSIUM 3.3 MMOL/L (3.5-5.1); SODIUM 145 MMOL/L (135-145); TOTAL CARBON DIOXIDE 21.1 MMOL/L (24-32); TOTAL PROTEIN 5.2 G/DL (6.4-8.2); eGFR > 90 ML/MIN
--- NOTE | 2020-01-24 11:25 | NUR ---
TF consult: Pt with OG tube in place. Current documented wt is pt stated, d/w RN who reports unable to obtain scaled weight at this time as pt on rotoprone and bed may not have been zeroed out. Per patient's family at bedside pt likely weighs 145-150 lbs. TF recommendations listed below were calculated using IBW of 140 lbs. No water flushes at this time per MD at critical care rounds as pt is being diuresed. Pt now on banana bag after learning that pt with significant EtOH hx. Pt doesn't appear to be TRALI per MD notes. Will continue to follow closely. Recommendations: 1) Continuous TF via OG tube using Vital AF with goal rate of 70 mL/hr to provide: 1680 mL total volume/day, 2016 kcal, 126 g protein, and 1362 mL water 2) No water flushes at this time per MD; monitor serum Na 3) Prealbumin q /; daily weights 4) Continue banana bag given EtOH hx 5) PO diet advancement to low fat as medically indicated following extubation Addendum: 01/24/20 at [address] Amended: Links added.
[2020-01-24] MEDS ORDERED: guaiFENesin/DM 10ml UD oral syrup OGT PRN (12:02)
[2020-01-24] MEDS: LIPASE/PROTEASE/AMYLASE 4,200 unit CAPSULE.DR PO SCH ×2 (12:57→17:36)
[2020-01-24] MEDS ORDERED: VANCOMYCIN LEVEL IV ONE (13:30)
[2020-01-24] MEDS: methylPREDNISolone sod succ 125mg/2ml vial IV SCH ×2 (14:18→20:52)
[2020-01-24 14:26] LABS: BASOPHILS % (AUTO) 0.3 % (0-1); EOSINOPHILS # (AUTO) 0.2 X10'3 (0-0.9); EOSINOPHILS % (AUTO) 1.3 % (0-6); HEMATOCRIT 23.7 % (35.0-45.0); HEMOGLOBIN 8.2 g/dl (12.0-16.0); LYMPHOCYTES # (AUTO) 1.3 X10'3 (1.1-4.8); LYMPHOCYTES % (AUTO) 9.4 % (21-51); MEAN CORPUSCULAR HEMOGLOBIN 31.4 PG (27.0-31.0); MEAN CORPUSCULAR HGB CONC 34.7 g/dL (33.0-36.5); MEAN CORPUSCULAR VOLUME 90.5 FL (78-98); MEAN PLATELET VOLUME 7.3 FL (7.4-10.4); MONOCYTES # (AUTO) 1.2 X10'3 (0-0.9); MONOCYTES % (AUTO) 9.1 % (2-12); NEUTROPHILS # (AUTO) 10.7 X10'3 (1.8-7.7); NEUTROPHILS % (AUTO) 79.9 % (42-75); PLATELET COUNT 178 X10'3 (140-440); RED BLOOD COUNT 2.62 X10'6 (4.20-5.60); RED CELL DISTRIBUTION WIDTH 16.8 % (11.5-14.5); WHITE BLOOD COUNT 13.4 X10'3 (4.5-11.0)
[2020-01-24 14:39] LABS: ALANINE AMINOTRANSFERASE 27 U/L (12-78); ALBUMIN 2.9 G/DL (3.4-5.0); ALBUMIN/GLOBULIN RATIO 1.3 (1.1-1.5); ALKALINE PHOSPHATASE 157 IU/L (46-116); ANION GAP 9 (8-16); ASPARTATE AMINO TRANSFERASE 51 U/L (10-37); BILIRUBIN,TOTAL 3.4 MG/DL (0.1-1.0); BLOOD UREA NITROGEN 6 MG/DL (7-18); BUN/CREATININE RATIO 9.8 (6.6-38.0); CALCIUM 6.9 MG/DL (8.5-10.1); CHLORIDE 114 MMOL/L (99-107); CREATININE 0.61 MG/DL (0.40-0.90); GLUCOSE 109 MG/DL (70-104); POTASSIUM 3.8 MMOL/L (3.5-5.1); SODIUM 146 MMOL/L (135-145); TOTAL CARBON DIOXIDE 23.4 MMOL/L (24-32); TOTAL PROTEIN 5.1 G/DL (6.4-8.2); eGFR > 90 ML/MIN
[2020-01-24 18:23] LABS: BASOPHILS % (AUTO) 0.1 % (0-1); EOSINOPHILS % (AUTO) 0.1 % (0-6); HEMATOCRIT 24.5 % (35.0-45.0); HEMOGLOBIN 8.6 g/dl (12.0-16.0); LYMPHOCYTES # (AUTO) 0.4 X10'3 (1.1-4.8); LYMPHOCYTES % (AUTO) 3.2 % (21-51); MEAN CORPUSCULAR HEMOGLOBIN 31.7 PG (27.0-31.0); MEAN CORPUSCULAR VOLUME 90.5 FL (78-98); MEAN PLATELET VOLUME 7.4 FL (7.4-10.4); MONOCYTES # (AUTO) 0.7 X10'3 (0-0.9); MONOCYTES % (AUTO) 5.9 % (2-12); NEUTROPHILS # (AUTO) 11.1 X10'3 (1.8-7.7); NEUTROPHILS % (AUTO) 90.7 % (42-75); PLATELET COUNT 169 X10'3 (140-440); RED BLOOD COUNT 2.71 X10'6 (4.20-5.60); WHITE BLOOD COUNT 12.3 X10'3 (4.5-11.0)
[2020-01-24 18:32] LABS: ALANINE AMINOTRANSFERASE 25 U/L (12-78); ALBUMIN 2.9 G/DL (3.4-5.0); ALBUMIN/GLOBULIN RATIO 1.2 (1.1-1.5); ALKALINE PHOSPHATASE 158 IU/L (46-116); ANION GAP 10 (8-16); ASPARTATE AMINO TRANSFERASE 48 U/L (10-37); BLOOD UREA NITROGEN 5 MG/DL (7-18); BUN/CREATININE RATIO 8.9 (6.6-38.0); CALCIUM 7.4 MG/DL (8.5-10.1); CHLORIDE 113 MMOL/L (99-107); CREATININE 0.56 MG/DL (0.40-0.90); GLUCOSE 125 MG/DL (70-104); POTASSIUM 3.7 MMOL/L (3.5-5.1); SODIUM 145 MMOL/L (135-145); TOTAL PROTEIN 5.3 G/DL (6.4-8.2); eGFR > 90 ML/MIN
[2020-01-24] MEDS: pantoprazole 40 MG vial IV SCH (20:52)
[2020-01-24] MEDS: furosemide 40mg/4ml inj IV SCH (20:52)
[2020-01-24] MEDS: lactobacillus rhamnosus 10,000 MMU CELLS/CAPSULE PO SCH (20:53)
[2020-01-24 23:33] LABS: BASOPHILS % (AUTO) 0.2 % (0-1); EOSINOPHILS % (AUTO) 0 % (0-6); HEMATOCRIT 26.6 % (35.0-45.0); HEMOGLOBIN 9.3 g/dl (12.0-16.0); LYMPHOCYTES # (AUTO) 0.4 X10'3 (1.1-4.8); LYMPHOCYTES % (AUTO) 2.9 % (21-51); MEAN CORPUSCULAR HEMOGLOBIN 31.8 PG (27.0-31.0); MEAN CORPUSCULAR HGB CONC 34.9 g/dL (33.0-36.5); MEAN CORPUSCULAR VOLUME 91.1 FL (78-98); MEAN PLATELET VOLUME 7.6 FL (7.4-10.4); MONOCYTES # (AUTO) 0.8 X10'3 (0-0.9); MONOCYTES % (AUTO) 5.8 % (2-12); NEUTROPHILS # (AUTO) 12.5 X10'3 (1.8-7.7); NEUTROPHILS % (AUTO) 91.1 % (42-75); PLATELET COUNT 183 X10'3 (140-440); RED BLOOD COUNT 2.92 X10'6 (4.20-5.60); RED CELL DISTRIBUTION WIDTH 17.1 % (11.5-14.5); WHITE BLOOD COUNT 13.7 X10'3 (4.5-11.0)
[2020-01-24 23:40] LABS: ALANINE AMINOTRANSFERASE 31 U/L (12-78); ALBUMIN 3.2 G/DL (3.4-5.0); ALBUMIN/GLOBULIN RATIO 1.2 (1.1-1.5); ALKALINE PHOSPHATASE 173 IU/L (46-116); ANION GAP 12 (8-16); ASPARTATE AMINO TRANSFERASE 50 U/L (10-37); BLOOD UREA NITROGEN 4 MG/DL (7-18); BUN/CREATININE RATIO 6.1 (6.6-38.0); CALCIUM 7.6 MG/DL (8.5-10.1); CHLORIDE 113 MMOL/L (99-107); CREATININE 0.66 MG/DL (0.40-0.90); GLUCOSE 158 MG/DL (70-104); POTASSIUM 3.5 MMOL/L (3.5-5.1); SODIUM 149 MMOL/L (135-145); TOTAL CARBON DIOXIDE 24.1 MMOL/L (24-32); TOTAL PROTEIN 5.9 G/DL (6.4-8.2); eGFR > 90 ML/MIN
[2020-01-25] VITALS (23 sets, daily range): BP systolic 94–136; BP diastolic 58–96
[2020-01-25] MEDS: albumin (human) 25% 100 ML IV solution IV SCH ×3 (00:28→15:41)
[2020-01-25] MEDS: FENTANYL-0.9 % NACL/PF 100 ML IV PRN ×6 (02:05→23:44)
[2020-01-25] MEDS: midazolam 100mg in NS 100ml 100 ML IV PRN ×5 (02:05→23:01)
[2020-01-25] MEDS: methylPREDNISolone sod succ 125mg/2ml vial IV SCH ×4 (02:13→20:10)
[2020-01-25] MEDS: mineral oil/petrolatum ophthal oint EACHEYE SCH ×4 (02:14→20:11)
[2020-01-25] MEDS: vancomycin/NS 1 GM ADD-VANTAGE 250 ML IV SCH ×2 (02:15→13:51)
[2020-01-25] MEDS: ipratropium/albuterol 3ml nebule NEB SCH ×6 (02:34→22:32)
[2020-01-25 03:05] LABS: BASOPHILS % (AUTO) 0.3 % (0-1); EOSINOPHILS % (AUTO) 0 % (0-6); HEMATOCRIT 24.6 % (35.0-45.0); HEMOGLOBIN 8.5 g/dl (12.0-16.0); LYMPHOCYTES # (AUTO) 0.4 X10'3 (1.1-4.8); LYMPHOCYTES % (AUTO) 3.1 % (21-51); MEAN CORPUSCULAR HEMOGLOBIN 31.2 PG (27.0-31.0); MEAN CORPUSCULAR HGB CONC 34.5 g/dL (33.0-36.5); MEAN CORPUSCULAR VOLUME 90.4 FL (78-98); MEAN PLATELET VOLUME 7.6 FL (7.4-10.4); MONOCYTES % (AUTO) 7.5 % (2-12); NEUTROPHILS # (AUTO) 12.1 X10'3 (1.8-7.7); NEUTROPHILS % (AUTO) 89.1 % (42-75); PLATELET COUNT 164 X10'3 (140-440); RED BLOOD COUNT 2.72 X10'6 (4.20-5.60); RED CELL DISTRIBUTION WIDTH 17.4 % (11.5-14.5); WHITE BLOOD COUNT 13.5 X10'3 (4.5-11.0)
[2020-01-25 03:06] LABS: ALANINE AMINOTRANSFERASE 27 U/L (12-78); ALBUMIN 3.4 G/DL (3.4-5.0); ALBUMIN/GLOBULIN RATIO 1.4 (1.1-1.5); ALKALINE PHOSPHATASE 147 IU/L (46-116); ANION GAP 10 (8-16); ASPARTATE AMINO TRANSFERASE 41 U/L (10-37); BILIRUBIN,TOTAL 3.5 MG/DL (0.1-1.0); BLOOD UREA NITROGEN 5 MG/DL (7-18); BUN/CREATININE RATIO 7.5 (6.6-38.0); CALCIUM 7.7 MG/DL (8.5-10.1); CHLORIDE 113 MMOL/L (99-107); CREATININE 0.67 MG/DL (0.40-0.90); GLUCOSE 167 MG/DL (70-104); MAGNESIUM 1.4 MG/DL (1.5-2.4); PHOSPHORUS 1.9 MG/DL (2.3-4.5); SODIUM 150 MMOL/L (135-145); TOTAL CARBON DIOXIDE 27.3 MMOL/L (24-32); TOTAL PROTEIN 5.9 G/DL (6.4-8.2); eGFR > 90 ML/MIN
[2020-01-25 03:16] LABS: ABG BASE EXCESS -0.4 mmol/L (-2.0-3.0); ABG HCO3 24.3 mmol/L (22.0-26.0); ABG OXYGEN SATURATION 91.4 % (95-98); ABG PCO2 (T) 39.1 mmHg (35.0-45.0); ABG PH (T) 7.409 (7.350-7.450); FCOHb 0.2 % (0.5-1.5); FMetHb 0.3 % (0.3-1.12); FO2Hb 90.9 % (94-100); PATIENT TEMPERATURE 36.7; PEEP 12 cm H2O; RESPIRATORY RATE 24 b/min; TIDAL VOLUME 350 mL; TOTAL HEMOGLOBIN 8.7 G/dl (12.0-16.0)
[2020-01-25 03:28] LABS: POTASSIUM 2.9 MMOL/L (3.5-5.1)
[2020-01-25] MEDS: potassium Cl 20mEq/100mL bag 100 ML IV PRN ×3 (03:30→05:49)
--- NOTE | 2020-01-25 06:00 | NUR ---
RM Note -Shift Summary Unable to advance tube feeding due to high residuals. Bowel sounds still very hypoactive. Pt desaturates quickly when supine, but is tolerating FiO2 of 45% while prone. Replacing K due to 2.9 at 0200
[2020-01-25 06:27] LABS: BASOPHILS % (AUTO) 0.2 % (0-1); EOSINOPHILS % (AUTO) 0 % (0-6); HEMATOCRIT 23.7 % (35.0-45.0); HEMOGLOBIN 8.3 g/dl (12.0-16.0); LYMPHOCYTES # (AUTO) 0.5 X10'3 (1.1-4.8); LYMPHOCYTES % (AUTO) 3.2 % (21-51); MEAN CORPUSCULAR HEMOGLOBIN 31.7 PG (27.0-31.0); MEAN CORPUSCULAR VOLUME 90.7 FL (78-98); MEAN PLATELET VOLUME 7.5 FL (7.4-10.4); MONOCYTES # (AUTO) 1.2 X10'3 (0-0.9); MONOCYTES % (AUTO) 8.3 % (2-12); NEUTROPHILS # (AUTO) 12.4 X10'3 (1.8-7.7); NEUTROPHILS % (AUTO) 88.3 % (42-75); PLATELET COUNT 156 X10'3 (140-440); RED BLOOD COUNT 2.61 X10'6 (4.20-5.60); RED CELL DISTRIBUTION WIDTH 17.1 % (11.5-14.5); WHITE BLOOD COUNT 14.1 X10'3 (4.5-11.0)
[2020-01-25 06:40] LABS: ALANINE AMINOTRANSFERASE 26 U/L (12-78); ALBUMIN 3.1 G/DL (3.4-5.0); ALBUMIN/GLOBULIN RATIO 1.2 (1.1-1.5); ALKALINE PHOSPHATASE 132 IU/L (46-116); ANION GAP 10 (8-16); ASPARTATE AMINO TRANSFERASE 39 U/L (10-37); BILIRUBIN,TOTAL 3.4 MG/DL (0.1-1.0); BLOOD UREA NITROGEN 5 MG/DL (7-18); BUN/CREATININE RATIO 7.5 (6.6-38.0); CALCIUM 7.5 MG/DL (8.5-10.1); CHLORIDE 114 MMOL/L (99-107); CREATININE 0.67 MG/DL (0.40-0.90); GLUCOSE 161 MG/DL (70-104); POTASSIUM 3.9 MMOL/L (3.5-5.1); SODIUM 149 MMOL/L (135-145); TOTAL CARBON DIOXIDE 25.3 MMOL/L (24-32); TOTAL PROTEIN 5.6 G/DL (6.4-8.2); eGFR > 90 ML/MIN
[2020-01-25 07:08] LABS: ANISOCYTOSIS 1+; PLATELET ESTIMATE NORMAL; POLYCHROMASIA 2+; TARGET CELLS FEW
[2020-01-25 07:13] LABS: MAGNESIUM 1.4 MG/DL (1.5-2.4); PHOSPHORUS 1.7 MG/DL (2.3-4.5)
--- NOTE | 2020-01-25 07:28 | NUR ---
Sharmaine to derrick montoya for OGT administration per [facility] Pharmacist
[2020-01-25] MEDS: CEFEPIME 2gm in D5W 50mL 50 ML IV SCH ×2 (07:58→20:11)
[2020-01-25] MEDS: Neutra Phos packet OGT PRN ×2 (07:58→13:51)
[2020-01-25] MEDS: pantoprazole 40 MG vial IV SCH ×2 (08:00→20:10)
[2020-01-25] MEDS: calcium carbonate/vitamin D3 tablet OGT SCH (08:00)
[2020-01-25] MEDS ORDERED: multivitamins, therapeutics tablet PO SCH (08:00)
[2020-01-25] MEDS ORDERED: levoTHYROXINE sod inj. 100mcg/5 ml vial IV SCH (08:00)
[2020-01-25] MEDS: LIPASE/PROTEASE/AMYLASE 4,200 unit CAPSULE.DR PO SCH ×2 (08:00→13:51)
[2020-01-25] MEDS ORDERED: nicotine 21mg patch - 24 hr TD SCH (08:00)
[2020-01-25] MEDS: levoTHYROXINE sod inj. 100mcg/5 ml vial IV SCH (08:01)
[2020-01-25] MEDS: magnesium oxide 400mg tablet OGT SCH (08:01)
[2020-01-25] MEDS: folic acid 1mg tablet OGT SCH (08:01)
[2020-01-25] MEDS: lactobacillus rhamnosus 10,000 MMU CELLS/CAPSULE PO SCH ×2 (08:01→20:10)
[2020-01-25] MEDS: nicotine 21mg patch - 24 hr TD SCH (08:01)
[2020-01-25] MEDS: furosemide 40mg/4ml inj IV SCH ×2 (08:46→20:09)
[2020-01-25] MEDS: thiamine inj. 100 MG in normal saline 100ml IV soln 99 ML IV SCH (08:46)
[2020-01-25 10:16] LABS: BASOPHILS % (AUTO) 0 % (0-1); EOSINOPHILS % (AUTO) 0 % (0-6); HEMATOCRIT 23.6 % (35.0-45.0); HEMOGLOBIN 8.1 g/dl (12.0-16.0); LYMPHOCYTES # (AUTO) 0.6 X10'3 (1.1-4.8); MEAN CORPUSCULAR HEMOGLOBIN 31.3 PG (27.0-31.0); MEAN CORPUSCULAR HGB CONC 34.4 g/dL (33.0-36.5); MEAN PLATELET VOLUME 7.7 FL (7.4-10.4); MONOCYTES # (AUTO) 0.8 X10'3 (0-0.9); MONOCYTES % (AUTO) 5.6 % (2-12); NEUTROPHILS # (AUTO) 12.8 X10'3 (1.8-7.7); NEUTROPHILS % (AUTO) 90.4 % (42-75); PLATELET COUNT 153 X10'3 (140-440); RED CELL DISTRIBUTION WIDTH 17.4 % (11.5-14.5); WHITE BLOOD COUNT 14.2 X10'3 (4.5-11.0)
[2020-01-25 10:34] LABS: ANISOCYTOSIS 1+; PLATELET ESTIMATE NORMAL; TOTAL CELLS COUNTED 100
[2020-01-25 10:36] LABS: ALANINE AMINOTRANSFERASE 21 U/L (12-78); ALBUMIN 3.5 G/DL (3.4-5.0); ALBUMIN/GLOBULIN RATIO 1.3 (1.1-1.5); ALKALINE PHOSPHATASE 128 IU/L (46-116); ANION GAP 9 (8-16); ASPARTATE AMINO TRANSFERASE 33 U/L (10-37); BILIRUBIN,TOTAL 3.2 MG/DL (0.1-1.0); BLOOD UREA NITROGEN 6 MG/DL (7-18); BUN/CREATININE RATIO 9.4 (6.6-38.0); CALCIUM 8.1 MG/DL (8.5-10.1); CHLORIDE 113 MMOL/L (99-107); CREATININE 0.64 MG/DL (0.40-0.90); GLUCOSE 190 MG/DL (70-104); POTASSIUM 3.6 MMOL/L (3.5-5.1); SODIUM 149 MMOL/L (135-145); TOTAL CARBON DIOXIDE 26.9 MMOL/L (24-32); TOTAL PROTEIN 6.1 G/DL (6.4-8.2); eGFR > 90 ML/MIN
[2020-01-25] MEDS: MVI, adult No.4 with vit. K 10 ML in dextrose 5% water 500ml 490 ML IV SCH ×2 (10:44)
[2020-01-25] MEDS: methylnaltrexone br 12mg/0.6ml inj***SubQ only SQ SCH (13:51)
[2020-01-25] MEDS ORDERED: glucagon, human recombinant 1mg kit SUBCUT PRN (14:45)
[2020-01-25] MEDS ORDERED: dextrose ORAL solution 15 GM/59 ML bottle PO PRN ×2 (14:45)
[2020-01-25] MEDS ORDERED: dextrose 50%-water 50ml dispensing syringe IV PRN (14:45)
[2020-01-25] MEDS: insulin regular, human U-100 3ml vial - multi-dose SQ SCH ×2 (15:37→20:42)
--- NOTE | 2020-01-25 17:43 | NUR ---
Per shayan Tan to D/C abdominal pressure order as well as q4h lab orders for all labs; change labs to daily except DVT PTT protocol.
--- NOTE | 2020-01-25 18:30 | NUR ---
Patient in room [facility] 2011. I have received report from Preet HOLDEN and had the opportunity to ask questions and assume patient care. Student Nurse Herman working with me.
--- NOTE | 2020-01-25 18:31 | NUR ---
Problems reprioritized. Patient report given, questions answered & plan of care reviewed with Ibis HOLDEN.
[2020-01-25] MEDS: insulin glargine (Lantus) pen - multi-dose SQ SCH (20:16)
--- NOTE | 2020-01-25 22:30 | NUR ---
Pt O2 Sats not within desired range, O2 increased to 65% by RT
[2020-01-26] VITALS (25 sets, daily range): BP systolic 106–130; BP diastolic 56–75
[2020-01-26] MEDS: albumin (human) 25% 100 ML IV solution IV SCH ×3 (00:04→15:45)
[2020-01-26] MEDS: LIPASE/PROTEASE/AMYLASE 4,200 unit CAPSULE.DR PO SCH ×3 (00:05→15:44)
[2020-01-26] MEDS: mineral oil/petrolatum ophthal oint EACHEYE SCH ×4 (01:57→20:44)
[2020-01-26] MEDS: vancomycin/NS 1 GM ADD-VANTAGE 250 ML IV SCH ×2 (01:57→14:12)
[2020-01-26] MEDS: methylPREDNISolone sod succ 125mg/2ml vial IV SCH ×4 (01:58→20:45)
[2020-01-26] MEDS: ipratropium/albuterol 3ml nebule NEB SCH ×6 (02:13→22:48)
[2020-01-26] MEDS: insulin regular, human U-100 3ml vial - multi-dose SQ SCH ×3 (02:39→13:56)
[2020-01-26 03:01] LABS: ABG BASE EXCESS 1.4 mmol/L (-2.0-3.0); ABG HCO3 26.1 mmol/L (22.0-26.0); ABG OXYGEN SATURATION 71.1 % (95-98); ABG PCO2 (T) 42.7 mmHg (35.0-45.0); ABG PH (T) 7.406 (7.350-7.450); ABG PO2 (T) 38.5 mmHg (83-108); FMetHb 0.3 % (0.3-1.12); FO2Hb 70.9 % (94-100); PATIENT TEMPERATURE 37.5; PEEP 12 cm H2O; RESPIRATORY RATE 24 b/min; TIDAL VOLUME 350 mL; TOTAL HEMOGLOBIN 8.6 G/dl (12.0-16.0)
[2020-01-26] MEDS: FENTANYL-0.9 % NACL/PF 100 ML IV PRN ×6 (03:23→23:18)
[2020-01-26 03:37] LABS: BASOPHILS % (AUTO) 0.2 % (0-1); EOSINOPHILS % (AUTO) 0 % (0-6); HEMATOCRIT 23.1 % (35.0-45.0); HEMOGLOBIN 7.9 g/dl (12.0-16.0); LYMPHOCYTES # (AUTO) 0.8 X10'3 (1.1-4.8); LYMPHOCYTES % (AUTO) 4.7 % (21-51); MEAN CORPUSCULAR HEMOGLOBIN 31.1 PG (27.0-31.0); MEAN CORPUSCULAR HGB CONC 34.2 g/dL (33.0-36.5); MONOCYTES % (AUTO) 6.5 % (2-12); NEUTROPHILS # (AUTO) 14.4 X10'3 (1.8-7.7); NEUTROPHILS % (AUTO) 88.6 % (42-75); PLATELET COUNT 142 X10'3 (140-440); RED BLOOD COUNT 2.53 X10'6 (4.20-5.60); RED CELL DISTRIBUTION WIDTH 17.4 % (11.5-14.5); WHITE BLOOD COUNT 16.2 X10'3 (4.5-11.0)
[2020-01-26] MEDS: midazolam 100mg in NS 100ml 100 ML IV PRN ×5 (03:37→23:18)
[2020-01-26] MEDS: heparin 25,000 UNIT/250ml bag 250 ML IV SCH ×2 (03:37→10:39)
--- NOTE | 2020-01-26 03:40 | NUR ---
ABG shows mismatch in pleth readings. pO2 less than 40, FiO2 increased to 85%.
[2020-01-26 03:50] LABS: ALANINE AMINOTRANSFERASE 18 U/L (12-78); ALBUMIN 3.6 G/DL (3.4-5.0); ALBUMIN/GLOBULIN RATIO 1.4 (1.1-1.5); ALKALINE PHOSPHATASE 120 IU/L (46-116); ANION GAP 10 (8-16); ASPARTATE AMINO TRANSFERASE 33 U/L (10-37); BILIRUBIN,TOTAL 2.6 MG/DL (0.1-1.0); BLOOD UREA NITROGEN 9 MG/DL (7-18); BUN/CREATININE RATIO 13.2 (6.6-38.0); CHLORIDE 111 MMOL/L (99-107); CREATININE 0.68 MG/DL (0.40-0.90); GLUCOSE 159 MG/DL (70-104); MAGNESIUM 1.4 MG/DL (1.5-2.4); PHOSPHORUS 1.4 MG/DL (2.3-4.5); POTASSIUM 3.1 MMOL/L (3.5-5.1); SODIUM 149 MMOL/L (135-145); TOTAL CARBON DIOXIDE 28.5 MMOL/L (24-32); TOTAL PROTEIN 6.1 G/DL (6.4-8.2); eGFR > 90 ML/MIN
[2020-01-26 04:16] LABS: ANISOCYTOSIS 1+; NUCLEATED RED BLOOD CELLS 2 /100WBC (0-0); PLATELET ESTIMATE NORMAL; POLYCHROMASIA FEW; TOTAL CELLS COUNTED 100
[2020-01-26] MEDS: potassium Cl 20mEq/100mL bag 100 ML IV PRN ×2 (04:16→05:20)
[2020-01-26] MEDS: Neutra Phos packet OGT PRN (04:16)
--- NOTE | 2020-01-26 04:52 | NUR ---
Updated son by phone x2 this shift.
[2020-01-26 04:56] LABS: ABG HCO3 25.4 mmol/L (22.0-26.0); ABG OXYGEN SATURATION 90.8 % (95-98); ABG PCO2 (T) 39.8 mmHg (35.0-45.0); ABG PH (T) 7.424 (7.350-7.450); ABG PO2 (T) 62.7 mmHg (83-108); FMetHb 0.2 % (0.3-1.12); FO2Hb 90.6 % (94-100); PATIENT TEMPERATURE 37.4; PEEP 12 cm H2O; RESPIRATORY RATE 24 b/min; TIDAL VOLUME 350 mL; TOTAL HEMOGLOBIN 8.8 G/dl (12.0-16.0)
--- NOTE | 2020-01-26 06:34 | NUR ---
Problems reprioritized. Patient report given, questions answered & plan of care reviewed with Dora HOLDEN. Student documentation: I have reviewed and agree with all interventions, assessments performed and documented by Herman HOLDEN. Student Medication Administration: For this medication-pass time frame, all medication were reviewed, dispensed, administered and documented per hospital policy by Herman HOLDEN.
--- NOTE | 2020-01-26 06:45 | NUR ---
Patient in room [facility] 2011. I have received report from Ibis HOLDEN and had the opportunity to ask questions and assume patient care. Addendum: 01/26/20 at 0645 by Dora Cobos RN Amended: Links added.
[2020-01-26] MEDS: levoTHYROXINE sod inj. 100mcg/5 ml vial IV SCH (07:29)
[2020-01-26] MEDS: pantoprazole 40 MG vial IV SCH ×2 (07:30→20:45)
[2020-01-26] MEDS: furosemide 40mg/4ml inj IV SCH ×2 (07:30→20:45)
[2020-01-26] MEDS: CEFEPIME 2gm in D5W 50mL 50 ML IV SCH ×2 (07:30→20:44)
[2020-01-26] MEDS: nicotine 21mg patch - 24 hr TD SCH (07:36)
[2020-01-26] MEDS: folic acid 1mg tablet OGT SCH (07:37)
[2020-01-26] MEDS: lactobacillus rhamnosus 10,000 MMU CELLS/CAPSULE PO SCH ×2 (07:37→20:45)
[2020-01-26] MEDS: magnesium oxide 400mg tablet OGT SCH (07:37)
[2020-01-26] MEDS: calcium carbonate/vitamin D3 tablet OGT SCH (07:37)
[2020-01-26] MEDS: thiamine inj. 100 MG in normal saline 100ml IV soln 99 ML IV SCH (07:38)
[2020-01-26] MEDS: MVI, adult No.4 with vit. K 10 ML in dextrose 5% water 500ml 490 ML IV SCH ×2 (08:37)
[2020-01-26] MEDS: acetaminophen 325mg tablet OGT PRN ×2 (09:49→15:44)
[2020-01-26] MEDS ORDERED: furosemide 40mg/4ml inj IV ONE (09:55)
[2020-01-26 10:26] LABS: D-DIMER 3.76 MG/L FEU (0-0.50)
--- NOTE | 2020-01-26 11:10 | NUR ---
Pt. has been alarming the peak pressure alarm on vent. RT and Dr. Jacob pantoja. Alarms stopped when pt. was placed on PRVC mode, however, pt's RR and heart rate increased and SP02 decreased. Turned back to AC/VC mode. Vital signs improved.
[2020-01-26] MEDS: CISatracurium **Bolus** 2 mg/ml inj IV PRN (12:36)
--- NOTE | 2020-01-26 12:49 | NUR ---
Nimbex bolus given. Asynchonous waveforms noted on vent. Nimbex has not seem to make a difference in the efficacy of the ventilator. RT and charge nurse here.
--- NOTE | 2020-01-26 13:00 | NUR ---
Pt. Sp02 77. Suctioned, RT called. Pt. placed on 100% Fi02. Nimbex started. Will get ABG at 1430.
[2020-01-26] MEDS: CISatracurium besylate inj. 100 MG in normal saline 100ml IV soln 90 ML IV SCH (13:15)
[2020-01-26] MEDS ORDERED: VANCOMYCIN LEVEL IV ONE (13:30)
[2020-01-26] MEDS: lactulose 20gm/30ml cup OGT SCH ×2 (13:56→20:45)
--- NOTE | 2020-01-26 14:17 | NUR ---
Vanco level 18.8. Ok to hang Kevin per Sven Pharmacist. Foam dressings applied to heels for redness. Heels do ryan easily.
[2020-01-26 14:55] LABS: ABG BASE EXCESS 2.5 mmol/L (-2.0-3.0); ABG HCO3 26.1 mmol/L (22.0-26.0); ABG OXYGEN SATURATION 98.1 % (95-98); ABG PCO2 (T) 36.4 mmHg (35.0-45.0); ABG PH (T) 7.474 (7.350-7.450); ABG PO2 (T) 139.6 mmHg (83-108); FCOHb 0.3 % (0.5-1.5); FMetHb 0.3 % (0.3-1.12); FO2Hb 97.5 % (94-100); PEEP 15 cm H2O; RESPIRATORY RATE 24 b/min; TIDAL VOLUME 350 mL; TOTAL HEMOGLOBIN 9.7 G/dl (12.0-16.0)
--- NOTE | 2020-01-26 14:56 | NUR ---
Have not been able to supine pt. yet this shift yet as she is on peep 15 and 100% Fi02. Charge nurse aware.
--- NOTE | 2020-01-26 15:04 | NUR ---
RN updated Dr. Jacob mcgrath. pt. Sp02 77% at around 1300. Notified that Nimbex is infusing now. ABG P02 is 139. Fi02 on the vent decreased to 85%.
--- NOTE | 2020-01-26 16:02 | NUR ---
Dr. James here to check on pt.
--- NOTE | 2020-01-26 16:35 | NUR ---
Last TF residual 350 but TF stopped since TF noted to be orally suctioned from mouth.
--- NOTE | 2020-01-26 17:20 | NUR ---
Pt's called earlier in the shift for an update on pt's condition.
--- NOTE | 2020-01-26 19:00 | NUR ---
call to pharmacy to clarify nimbex order. pharmacy to send original gtt order as i can not find the order in [employer]. order will be in chat when it arrives via fax. Bill from pharmacy is also sending the protocol. Patient temp 39.2 core. per report patient does not tolerate any disruption in rotation and quickly decompensates. cooling blanket placed on patient back side while rotating.
--- NOTE | 2020-01-26 19:30 | NUR ---
patient TO$ at 70 mA was 0/4 however patient was overbreathing the vent. TO4 at 80 mA = 4/4 strong twitches. i have used 8 as baseline because overbreathing vent rate
--- NOTE | 2020-01-26 20:30 | NUR ---
spoke to Murtaza Khan. CUSTOMER ENGINEER regarding TF like substance still dripping down from patient mouth. Residuals 150 ml, TF was stopped on dayshift per report due to nursing judgement and aspiration dangers (TF like substance leaking from mouth- per report). I am holding Lantus. Patient blood sugar 87. No insulin coverage for any carbs. Patients blood sugar due again at 0200. will monitor . Per an order (written BEFORE the rotoprone bed order) we should be following the GRV protocol. I will pass in report for MD to re-examine the indications for holding tubefeed etc while on rotoprone bed to safeguard against aspiration danger. since TF like secretions are still coming from mouth (small amount) I also am holding TF. Positive placement of the OGT confirmed with air bolus. The 150 ml of residual was refed. Murtaza MCKENNA said no reason to put OGT to LWSn. I will be checking resids in 4 hours. continuing to monitor
[2020-01-26] MEDS: insulin glargine (Lantus) pen - multi-dose SQ SCH (20:45)
--- NOTE | 2020-01-26 21:26 | NUR ---
patient temp 37.9 with cooling blanket. no shivering. Cooling blanket shut off since WNL - will continue to monitor
--- NOTE | 2020-01-26 22:15 | NUR ---
patient has begun to make a snoring sound when face down completely. no noise when left or right facing. Sent a page to RT to assess ETT when possible. Patients volumes are fine, and oxygenating well. this is a change since the beginning of my shift.
--- NOTE | 2020-01-26 22:48 | NUR ---
3 RT's in to assess ETT and snoring. please see RT notes for ETT manipulation & and made secure.. Snoring sound is no longer heard.
[2020-01-27] VITALS (24 sets, daily range): BP systolic 90–140; BP diastolic 63–84
[2020-01-27] MEDS: albumin (human) 25% 100 ML IV solution IV SCH ×4 (00:10→23:48)
[2020-01-27] MEDS: vancomycin/NS 1 GM ADD-VANTAGE 250 ML IV SCH ×2 (02:14→14:00)
[2020-01-27] MEDS: lactulose 20gm/30ml cup OGT SCH ×3 (02:14→12:56)
[2020-01-27] MEDS: methylPREDNISolone sod succ 125mg/2ml vial IV SCH ×4 (02:14→20:28)
[2020-01-27] MEDS: mineral oil/petrolatum ophthal oint EACHEYE SCH ×4 (02:14→20:28)
[2020-01-27] MEDS: ipratropium/albuterol 3ml nebule NEB SCH ×6 (02:15→22:33)
[2020-01-27 02:48] LABS: EOSINOPHILS % (AUTO) 0 % (0-6); LYMPHOCYTES # (AUTO) 0.7 X10'3 (1.1-4.8); PLATELET COUNT 123 X10'3 (140-440)
[2020-01-27 02:49] LABS: BASOPHILS % (AUTO) 0.1 % (0-1); HEMATOCRIT 23.5 % (35.0-45.0); LYMPHOCYTES % (AUTO) 4.7 % (21-51); MEAN CORPUSCULAR HEMOGLOBIN 31.6 PG (27.0-31.0); MEAN CORPUSCULAR HGB CONC 34.2 g/dL (33.0-36.5); MEAN CORPUSCULAR VOLUME 92.2 FL (78-98); MEAN PLATELET VOLUME 8.6 FL (7.4-10.4); MONOCYTES # (AUTO) 0.7 X10'3 (0-0.9); MONOCYTES % (AUTO) 4.6 % (2-12); NEUTROPHILS # (AUTO) 14.3 X10'3 (1.8-7.7); NEUTROPHILS % (AUTO) 90.6 % (42-75); RED BLOOD COUNT 2.55 X10'6 (4.20-5.60); RED CELL DISTRIBUTION WIDTH 17.3 % (11.5-14.5); WHITE BLOOD COUNT 15.8 X10'3 (4.5-11.0)
[2020-01-27 03:05] LABS: ALANINE AMINOTRANSFERASE 48 U/L (12-78); ALBUMIN 3.6 G/DL (3.4-5.0); ALBUMIN/GLOBULIN RATIO 1.6 (1.1-1.5); ALKALINE PHOSPHATASE 108 IU/L (46-116); ANION GAP 10 (8-16); ASPARTATE AMINO TRANSFERASE 111 U/L (10-37); BILIRUBIN,TOTAL 3.2 MG/DL (0.1-1.0); BLOOD UREA NITROGEN 19 MG/DL (7-18); BUN/CREATININE RATIO 17.1 (6.6-38.0); CALCIUM 7.5 MG/DL (8.5-10.1); CHLORIDE 112 MMOL/L (99-107); CREATININE 1.11 MG/DL (0.40-0.90); GLUCOSE 112 MG/DL (70-104); MAGNESIUM 1.1 MG/DL (1.5-2.4); PHOSPHORUS 3.1 MG/DL (2.3-4.5); PREALBUMIN 9.6 MG/DL (19-36); SODIUM 153 MMOL/L (135-145); TOTAL CARBON DIOXIDE 31.1 MMOL/L (24-32); TOTAL PROTEIN 5.9 G/DL (6.4-8.2); eGFR 52 ML/MIN
[2020-01-27 03:15] LABS: POTASSIUM 2.7 MMOL/L (3.5-5.1)
[2020-01-27 03:22] LABS: ANISOCYTOSIS 1+; NUCLEATED RED BLOOD CELLS 1 /100WBC (0-0); PLATELET ESTIMATE DECREASED; TOTAL CELLS COUNTED 100; TOXIC GRANULATION 1+
[2020-01-27] MEDS: potassium Cl 20mEq/100mL bag 100 ML IV PRN ×5 (03:40→15:16)
[2020-01-27] MEDS: FENTANYL-0.9 % NACL/PF 100 ML IV PRN ×5 (04:00→23:44)
[2020-01-27] MEDS: midazolam 100mg in NS 100ml 100 ML IV PRN ×6 (04:01→21:22)
[2020-01-27 04:16] LABS: ABG HCO3 28.1 mmol/L (22.0-26.0); ABG OXYGEN SATURATION 97.9 % (95-98); ABG PCO2 (T) 41.4 mmHg (35.0-45.0); ABG PH (T) 7.453 (7.350-7.450); ABG PO2 (T) 118.7 mmHg (83-108); FCOHb 0.4 % (0.5-1.5); FMetHb 0.3 % (0.3-1.12); FO2Hb 97.2 % (94-100); PATIENT TEMPERATURE 37.6; PEEP 15 cm H2O; RESPIRATORY RATE 24 b/min; TIDAL VOLUME 350 mL; TOTAL HEMOGLOBIN 8.1 G/dl (12.0-16.0)
[2020-01-27] MEDS: magnesium 2GM in 50ml NS 50 ML IV PRN ×4 (05:02→20:40)
[2020-01-27] MEDS: levoTHYROXINE sod inj. 100mcg/5 ml vial IV SCH (07:31)
[2020-01-27] MEDS: pantoprazole 40 MG vial IV SCH ×2 (07:32→20:27)
[2020-01-27] MEDS: thiamine inj. 100 MG in normal saline 100ml IV soln 99 ML IV SCH (07:32)
[2020-01-27] MEDS: magnesium oxide 400mg tablet OGT SCH (07:33)
[2020-01-27] MEDS: lactobacillus rhamnosus 10,000 MMU CELLS/CAPSULE PO SCH ×2 (07:33→20:28)
[2020-01-27] MEDS: methylnaltrexone br 12mg/0.6ml inj***SubQ only SQ SCH (07:33)
[2020-01-27] MEDS: folic acid 1mg tablet OGT SCH (07:33)
[2020-01-27] MEDS: calcium carbonate/vitamin D3 tablet OGT SCH (07:33)
[2020-01-27] MEDS: nicotine 21mg patch - 24 hr TD SCH (07:39)
[2020-01-27] MEDS: LIPASE/PROTEASE/AMYLASE 4,200 unit CAPSULE.DR PO SCH ×4 (08:00→23:48)
[2020-01-27] MEDS: furosemide 40mg/4ml inj IV SCH ×2 (08:24→20:27)
[2020-01-27] MEDS: CEFEPIME 2gm in D5W 50mL 50 ML IV SCH ×2 (08:25→20:27)
[2020-01-27] MEDS: MVI, adult No.4 with vit. K 10 ML in dextrose 5% water 500ml 490 ML IV SCH ×2 (08:39)
[2020-01-27] MEDS: CISatracurium besylate inj. 100 MG in normal saline 100ml IV soln 90 ML IV SCH (10:28)
--- NOTE | 2020-01-27 11:33 | NUR ---
ROUNDS NOTE: Dr. Restrepo aware of pt's TF off for high residuals, vent settings and VS, current labs and culture (negative) results.
--- NOTE | 2020-01-27 12:46 | NUR ---
Reassessment: Pt TF has been held r/t oral secretions appearing like TF formula. Pt has OG in place and per RN cannot elevate more than 11 degrees on rotorest bed; likely cause of intolerance in addition to constipation. Pt LBM / 7 days now having consistent liquid stools per RN receiving relistor. JANIS d/w MD regarding corpak placement since post-pyloric and would be much more tolerable on rotorest; RN agrees to try placement today. May need to wait until pt more stable for NG if unable to place today per MD. Na 153 w/ EN held unable to provide free water. Will continue to monitor. Recommendations: 1) Continuous TF via OG tube using Vital AF with goal rate of 70 mL/hr to provide: 1680 mL total volume/day, 2016 kcal, 126 g protein, and 1362 mL water 2) post-pyloric feeds for optimal EN tolerance on rotorest bed 2) additional free water per MD once EN restarted 3) Prealbumin q /; daily weights 4) Continue banana bag given EtOH hx 5) routine bowel care 6) opioid antagonist per MD Addendum: 01/27/20 at [address] Amended: Links added.
[2020-01-27] MEDS ORDERED: VANCOMYCIN LEVEL IV ONE (13:30)
[2020-01-27 14:03] LABS: POTASSIUM 3.2 MMOL/L (3.5-5.1)
[2020-01-27 14:09] LABS: VANCOMYCIN,TROUGH 21.3 UG/ML (6.0-14.0)
--- NOTE | 2020-01-27 15:00 | NUR ---
Placed pt. in the supine position for one hour. VSS. Dressings to bilat. groin lines changed, face washed, mouth care done and aryan/washburn care provided. Skin assessed. One small skin tear/shear noted on right thigh. Foam dressing applied. Charge nurse aware. Dr. Restrepo aware of pt.'s tolerance of supine position. States to supine patient for one hour, prone for 3, supine for one hour, etc.
[2020-01-27] MEDS: VANCOMYCIN 750MG IV in NS 250 ML IV SCH (15:33)
--- NOTE | 2020-01-27 15:57 | NUR ---
called earlier in this shift for an update.
[2020-01-27 19:31] LABS: MAGNESIUM 2.3 MG/DL (1.5-2.4)
[2020-01-27 19:34] LABS: POTASSIUM 3.5 MMOL/L (3.5-5.1)
[2020-01-27] MEDS: insulin glargine (Lantus) pen - multi-dose SQ SCH (20:33)
[2020-01-28] VITALS (24 sets, daily range): BP systolic 115–147; BP diastolic 41–83
[2020-01-28] MEDS: mineral oil/petrolatum ophthal oint EACHEYE SCH ×4 (01:32→20:21)
[2020-01-28] MEDS: methylPREDNISolone sod succ 125mg/2ml vial IV SCH ×4 (01:32→20:22)
[2020-01-28] MEDS: VANCOMYCIN 750MG IV in NS 250 ML IV SCH ×2 (01:59→13:46)
[2020-01-28] MEDS: midazolam 100mg in NS 100ml 100 ML IV PRN ×5 (02:11→22:39)
[2020-01-28] MEDS: ipratropium/albuterol 3ml nebule NEB SCH ×6 (02:34→22:29)
[2020-01-28 02:44] LABS: BASOPHILS # (AUTO) 0.1 X10'3 (0-0.2); BASOPHILS % (AUTO) 0.3 % (0-1); EOSINOPHILS % (AUTO) 0 % (0-6); HEMATOCRIT 24.2 % (35.0-45.0); HEMOGLOBIN 8.2 g/dl (12.0-16.0); LYMPHOCYTES # (AUTO) 0.5 X10'3 (1.1-4.8); LYMPHOCYTES % (AUTO) 1.8 % (21-51); MEAN CORPUSCULAR HEMOGLOBIN 31.5 PG (27.0-31.0); MEAN CORPUSCULAR HGB CONC 33.8 g/dL (33.0-36.5); MEAN CORPUSCULAR VOLUME 93.2 FL (78-98); MONOCYTES # (AUTO) 0.8 X10'3 (0-0.9); MONOCYTES % (AUTO) 2.9 % (2-12); NEUTROPHILS # (AUTO) 26.1 X10'3 (1.8-7.7); PLATELET COUNT 116 X10'3 (140-440); RED CELL DISTRIBUTION WIDTH 18.2 % (11.5-14.5)
[2020-01-28 02:50] LABS: ALANINE AMINOTRANSFERASE 86 U/L (12-78); ALBUMIN 3.8 G/DL (3.4-5.0); ALBUMIN/GLOBULIN RATIO 1.6 (1.1-1.5); ALKALINE PHOSPHATASE 141 IU/L (46-116); ANION GAP 7 (8-16); ASPARTATE AMINO TRANSFERASE 131 U/L (10-37); BILIRUBIN,TOTAL 3.7 MG/DL (0.1-1.0); BLOOD UREA NITROGEN 33 MG/DL (7-18); BUN/CREATININE RATIO 30.8 (6.6-38.0); CALCIUM 7.8 MG/DL (8.5-10.1); CHLORIDE 111 MMOL/L (99-107); CREATININE 1.07 MG/DL (0.40-0.90); GLUCOSE 139 MG/DL (70-104); MAGNESIUM 2.4 MG/DL (1.5-2.4); PHOSPHORUS 3.2 MG/DL (2.3-4.5); POTASSIUM 3.8 MMOL/L (3.5-5.1); SODIUM 151 MMOL/L (135-145); TOTAL CARBON DIOXIDE 32.6 MMOL/L (24-32); TOTAL PROTEIN 6.2 G/DL (6.4-8.2); eGFR 54 ML/MIN
[2020-01-28 02:52] LABS: WHITE BLOOD COUNT 27.5 X10'3 (4.5-11.0)
[2020-01-28] MEDS: FENTANYL-0.9 % NACL/PF 100 ML IV PRN ×7 (03:11→23:08)
[2020-01-28 03:21] LABS: TOTAL CELLS COUNTED 100
[2020-01-28 03:22] LABS: ANISOCYTOSIS 3+; TARGET CELLS 1+
[2020-01-28 03:23] LABS: PLATELET ESTIMATE DECREASED; TOXIC GRANULATION 2+
[2020-01-28 03:30] LABS: ABG BASE EXCESS 3.5 mmol/L (-2.0-3.0); ABG OXYGEN SATURATION 95.7 % (95-98); ABG PCO2 (T) 60.8 mmHg (35.0-45.0); ABG PH (T) 7.317 (7.350-7.450); ABG PO2 (T) 93.1 mmHg (83-108); FCOHb 0.7 % (0.5-1.5); FMetHb 0.3 % (0.3-1.12); FO2Hb 94.7 % (94-100); PATIENT TEMPERATURE 38.1; PEEP 15 cm H2O; RESPIRATORY RATE 24 b/min; TIDAL VOLUME 350 mL; TOTAL HEMOGLOBIN 8.5 G/dl (12.0-16.0)
--- NOTE | 2020-01-28 06:50 | NUR ---
Patient in room [facility] 2011. I have received report from Rolando HOLDEN and had the opportunity to ask questions and assume patient care. Son just called for update.
[2020-01-28] MEDS: magnesium 2GM in 50ml NS 50 ML IV PRN (07:02)
[2020-01-28] MEDS: CEFEPIME 2gm in D5W 50mL 50 ML IV SCH ×2 (07:22→19:57)
[2020-01-28] MEDS: levoTHYROXINE sod inj. 100mcg/5 ml vial IV SCH (07:25)
[2020-01-28] MEDS: folic acid 1mg tablet OGT SCH (07:37)
[2020-01-28] MEDS: furosemide 40mg/4ml inj IV SCH ×2 (07:37→20:21)
[2020-01-28] MEDS: LIPASE/PROTEASE/AMYLASE 4,200 unit CAPSULE.DR PO SCH ×3 (07:37→23:42)
[2020-01-28] MEDS: pantoprazole 40 MG vial IV SCH ×2 (07:37→20:22)
[2020-01-28] MEDS: magnesium oxide 400mg tablet OGT SCH (07:37)
[2020-01-28] MEDS: lactobacillus rhamnosus 10,000 MMU CELLS/CAPSULE PO SCH ×2 (07:37→20:22)
[2020-01-28] MEDS: calcium carbonate/vitamin D3 tablet OGT SCH (07:37)
[2020-01-28] MEDS: nicotine 21mg patch - 24 hr TD SCH (07:38)
[2020-01-28] MEDS: thiamine inj. 100 MG in normal saline 100ml IV soln 99 ML IV SCH (07:55)
[2020-01-28] MEDS: CISatracurium besylate inj. 100 MG in normal saline 100ml IV soln 90 ML IV SCH (08:21)
[2020-01-28] MEDS: albumin (human) 25% 100 ML IV solution IV SCH ×2 (08:32→15:44)
[2020-01-28] MEDS: lactulose 20gm/30ml cup PO SCH ×3 (09:30→20:21)
[2020-01-28] MEDS: MVI, adult No.4 with vit. K 10 ML in dextrose 5% water 500ml 490 ML IV SCH ×2 (09:30)
--- NOTE | 2020-01-28 09:45 | NUR ---
Dr. Restrepo notified of pt's latest labs, vent settings, vital signs, and overall condition. Notified that pt. is not currently on a blood thinner as the Heparin gtt was dc'd Monday per Dr. James's request since INR was greater than 2.0.
--- NOTE | 2020-01-28 11:49 | NUR ---
PPN Consult: Pt to start PPN today per traveling engineer; pt remains not stable enough for corpak placement on rotoprone w/ OG in place. Pt receiving relistor and reglan to start today per MD. LBM 01/26 now w/ rectal bag in place per RN; pending stool volume documentation. Hua 8; small open area per WOC note. Already receiving increased protein needs on vent. Lower risk of refeeding syndrome given recently receiving EN. PN recs below; able to meet protein needs but unable to meet pt kcal needs without fluid overloading given low DEX formula. Will monitor for PN tolerance. Recommendations: 1) PPN per MD; recommend 2:1 Clinimix E 4.25/10 at 90ml/hr goal w/ 192ml separate 20% intralipid infusions to run at 16ml/hr for 12 hours each day. In total; to provide 2160ml fluid, 92g AA, 216g DEX(2.64mg/kg/min), and 1482 total kcals. 2) Monitor for PN tolerance. 3) Hold EN via OG tube per MD. IF EN restart using Vital AF with goal rate of 70 mL/hr to provide: 1680 mL total volume/day, 2016 kcal, 126 g protein, and 1362 mL water 4) post-pyloric feeds for optimal EN tolerance on rotoprone bed 5) additional free water per MD once EN restarted 6) Prealbumin q /; daily weights 7) Continue banana bag given EtOH hx 8) routine bowel care; opioid antagonist and promotility agent per MD Addendum: 01/28/20 at [address] Amended: Links added. Addendum: 01/28/20 at [address] Recommendations: 1) PPN per MD; recommend 2:1 Clinimix E 4.25/10 at 90ml/hr goal w/ 192ml separate 20% intralipid infusions to run at 16ml/hr for 12 hours each day. In total; to provide 2160ml fluid, 92g AA, 216g DEX(2.64mg/kg/min), and 1482 total kcals. Initiate at 30ml/hr and if tolerated advance Q12 to goal. 2) Monitor for PN tolerance. 3) Hold EN via OG tube per MD. IF EN restart using Vital AF with goal rate of 70 mL/hr to provide: 1680 mL total volume/day, 2016 kcal, 126 g protein, and 1362 mL water 4) post-pyloric feeds for optimal EN tolerance on rotoprone bed 5) additional free water per MD once EN restarted 6) Prealbumin q /; daily weights 7) Continue banana bag given EtOH hx 8) routine bowel care; opioid antagonist and promotility agent per MD
--- NOTE | 2020-01-28 11:55 | NUR ---
Pt. currently supine. WOC NAVIN Rose was able to asses pt. New foam dressing applied to right thigh skin tear. Dressings to bilat. groin lines intact and dry.
[2020-01-28] MEDS: metoclopramide 5 mg/ml inj IV SCH ×2 (13:09→20:22)
--- NOTE | 2020-01-28 15:49 | NUR ---
Pharmacy TC: Currently almost out of stock on E 4.25/10 and 4.25/5 PPN in stock to be used for pt. Updated PPN recs below. Recommendations: 1) PPN per MD; recommend 2:1 Clinimix E 4.25/5 at 90ml/hr goal w/ 192ml separate 20% intralipid infusions to run at 16ml/hr for 12 hours each day. In total; to provide 2160ml fluid, 92g AA, 108g DEX(1.32mg/kg/min), and 1115 total kcals. Initiate at 30ml/hr and if tolerated advance Q12 to goal. 2) Monitor for PN tolerance. 3) Hold EN via OG tube per MD. IF EN restart using Vital AF with goal rate of 70 mL/hr to provide: 1680 mL total volume/day, 2016 kcal, 126 g protein, and 1362 mL water 4) post-pyloric feeds for optimal EN tolerance on rotoprone bed 5) additional free water per MD once EN restarted 6) Prealbumin q /; daily weights 7) Continue banana bag given EtOH hx 8) routine bowel care; opioid antagonist and promotility agent per MD Addendum: 01/28/20 at [address] Amended: Links added.
[2020-01-28] MEDS ORDERED: [UNRECOGNIZED DRUG - OTHER] IV SCH (16:00)
[2020-01-28] MEDS ORDERED: LYTES IV SCH (16:00)
[2020-01-28] MEDS ORDERED: DEX IV SCH (16:00)
[2020-01-28] MEDS ORDERED: TRACE ELEMENT IV SCH (16:00)
[2020-01-28] MEDS ORDERED: Trace element-5 inj. 1 ML in AA 4.25%/calcium/lytes/D5W 2,000 ML IV SCH (16:00)
[2020-01-28] MEDS ORDERED: CALCIUM IV SCH (16:00)
[2020-01-28] MEDS: dextrose 5%-water 1,000 ML IV SCH (17:40)
[2020-01-28] MEDS: insulin regular, human U-100 3ml vial - multi-dose SQ SCH (20:39)
[2020-01-28] MEDS: insulin glargine (Lantus) pen - multi-dose SQ SCH (20:44)
[2020-01-28 20:56] LABS: MAGNESIUM 2.8 MG/DL (1.5-2.4); PHOSPHORUS 3.2 MG/DL (2.3-4.5)
[2020-01-28 21:00] LABS: POTASSIUM 3.2 MMOL/L (3.5-5.1)
[2020-01-29] VITALS (24 sets, daily range): BP systolic 130–151; BP diastolic 64–83
[2020-01-29] MEDS: albumin (human) 25% 100 ML IV solution IV SCH ×3 (00:42→15:55)
[2020-01-29] MEDS ORDERED: VANCOMYCIN LEVEL IV ONE (01:30)
[2020-01-29] MEDS: CISatracurium **Bolus** 2 mg/ml inj IV PRN (01:50)
[2020-01-29] MEDS: ipratropium/albuterol 3ml nebule NEB SCH ×6 (02:17→23:50)
[2020-01-29] MEDS: mineral oil/petrolatum ophthal oint EACHEYE SCH ×4 (02:21→19:32)
[2020-01-29] MEDS: methylPREDNISolone sod succ 125mg/2ml vial IV SCH ×4 (02:21→19:33)
[2020-01-29] MEDS: insulin regular, human U-100 3ml vial - multi-dose SQ SCH ×4 (02:23→20:21)
[2020-01-29] MEDS: lactulose 20gm/30ml cup PO SCH ×4 (02:33→19:33)
[2020-01-29] MEDS: VANCOMYCIN 750MG IV in NS 250 ML IV SCH (02:37)
[2020-01-29] MEDS: FENTANYL-0.9 % NACL/PF 100 ML IV PRN ×7 (02:38→22:20)
[2020-01-29] MEDS: CISatracurium besylate inj. 100 MG in normal saline 100ml IV soln 90 ML IV SCH ×2 (02:41→16:09)
[2020-01-29 02:45] LABS: BASOPHILS # (AUTO) 0.1 X10'3 (0-0.2); BASOPHILS % (AUTO) 0.2 % (0-1); EOSINOPHILS % (AUTO) 0 % (0-6); HEMATOCRIT 23.2 % (35.0-45.0); HEMOGLOBIN 7.8 g/dl (12.0-16.0); LYMPHOCYTES # (AUTO) 0.5 X10'3 (1.1-4.8); LYMPHOCYTES % (AUTO) 1.6 % (21-51); MEAN CORPUSCULAR HEMOGLOBIN 31.6 PG (27.0-31.0); MEAN CORPUSCULAR HGB CONC 33.4 g/dL (33.0-36.5); MEAN CORPUSCULAR VOLUME 94.7 FL (78-98); MEAN PLATELET VOLUME 9.8 FL (7.4-10.4); MONOCYTES # (AUTO) 0.8 X10'3 (0-0.9); MONOCYTES % (AUTO) 2.5 % (2-12); NEUTROPHILS # (AUTO) 30.5 X10'3 (1.8-7.7); NEUTROPHILS % (AUTO) 95.7 % (42-75); PLATELET COUNT 112 X10'3 (140-440); RED BLOOD COUNT 2.45 X10'6 (4.20-5.60); RED CELL DISTRIBUTION WIDTH 18.8 % (11.5-14.5)
[2020-01-29 02:52] LABS: WHITE BLOOD COUNT 31.9 X10'3 (4.5-11.0)
[2020-01-29 02:59] LABS: ALANINE AMINOTRANSFERASE 100 U/L (12-78); ALBUMIN 3.8 G/DL (3.4-5.0); ALBUMIN/GLOBULIN RATIO 1.5 (1.1-1.5); ALKALINE PHOSPHATASE 175 IU/L (46-116); ANION GAP 9 (8-16); ASPARTATE AMINO TRANSFERASE 99 U/L (10-37); BILIRUBIN,TOTAL 2.6 MG/DL (0.1-1.0); BLOOD UREA NITROGEN 46 MG/DL (7-18); BUN/CREATININE RATIO 42.6 (6.6-38.0); CALCIUM 7.6 MG/DL (8.5-10.1); CHLORIDE 112 MMOL/L (99-107); CREATININE 1.08 MG/DL (0.40-0.90); GLUCOSE 201 MG/DL (70-104); MAGNESIUM 2.6 MG/DL (1.5-2.4); PHOSPHORUS 2.9 MG/DL (2.3-4.5); POTASSIUM 3.1 MMOL/L (3.5-5.1); SODIUM 154 MMOL/L (135-145); TOTAL PROTEIN 6.3 G/DL (6.4-8.2); eGFR 53 ML/MIN
[2020-01-29] MEDS: midazolam 100mg in NS 100ml 100 ML IV PRN ×4 (03:19→22:20)
[2020-01-29 03:35] LABS: ABG BASE EXCESS 3.4 mmol/L (-2.0-3.0); ABG HCO3 30.2 mmol/L (22.0-26.0); ABG OXYGEN SATURATION 93.8 % (95-98); ABG PCO2 (T) 62.3 mmHg (35.0-45.0); ABG PH (T) 7.309 (7.350-7.450); ABG PO2 (T) 82.3 mmHg (83-108); FCOHb 0.6 % (0.5-1.5); FMetHb 0.5 % (0.3-1.12); FO2Hb 92.8 % (94-100); PEEP 15 cm H2O; RESPIRATORY RATE 24 b/min; TIDAL VOLUME 350 mL; TOTAL HEMOGLOBIN 8.6 G/dl (12.0-16.0)
[2020-01-29 03:50] LABS: NUCLEATED RED BLOOD CELLS 1 /100WBC (0-0); TOTAL CELLS COUNTED 100
[2020-01-29 03:51] LABS: ANISOCYTOSIS 1+; PLATELET ESTIMATE DECREASED
[2020-01-29] MEDS: dextrose 5%-water 1,000 ML IV SCH ×3 (06:00→17:46)
--- NOTE | 2020-01-29 06:30 | NUR ---
Patient in room [facility] 2011. I have received report from NAVIN Marshall and had the opportunity to ask questions and assume patient care.
[2020-01-29] MEDS: CEFEPIME 2gm in D5W 50mL 50 ML IV SCH ×2 (07:32→19:32)
[2020-01-29] MEDS: thiamine inj. 100 MG in normal saline 100ml IV soln 99 ML IV SCH (07:32)
[2020-01-29] MEDS: nicotine 21mg patch - 24 hr TD SCH (07:33)
[2020-01-29] MEDS: methylnaltrexone br 12mg/0.6ml inj***SubQ only SQ SCH (07:33)
[2020-01-29] MEDS: LIPASE/PROTEASE/AMYLASE 4,200 unit CAPSULE.DR PO SCH ×2 (07:34→15:04)
[2020-01-29] MEDS: metoclopramide 5 mg/ml inj IV SCH ×3 (07:34→20:17)
[2020-01-29] MEDS: levoTHYROXINE sod inj. 100mcg/5 ml vial IV SCH (07:34)
[2020-01-29] MEDS: furosemide 40mg/4ml inj IV SCH ×2 (07:34→19:32)
[2020-01-29] MEDS: pantoprazole 40 MG vial IV SCH ×2 (07:34→19:33)
[2020-01-29] MEDS: folic acid 1mg tablet OGT SCH (07:34)
[2020-01-29] MEDS: lactobacillus rhamnosus 10,000 MMU CELLS/CAPSULE PO SCH ×2 (07:34→19:34)
[2020-01-29] MEDS: magnesium oxide 400mg tablet OGT SCH (07:34)
[2020-01-29] MEDS: calcium carbonate/vitamin D3 tablet OGT SCH (07:34)
[2020-01-29] MEDS ORDERED: MVI, adult No.4 with vit. K 10 ML in dextrose 5% water 500ml 490 ML IV SCH ×2 (09:00)
[2020-01-29 11:13] LABS: CLARITY,URINE CLEAR (Clear); COLOR,URINE YELLOW (Yellow); GLUCOSE, URINE NEGATIVE (Neg); KETONES,URINE NEGATIVE (Neg); LEUKOCYTE ESTERASE ,URINE NEGATIVE (Neg); NITRITES, URINE NEGATIVE (Neg); OCCULT BLOOD,URINE LARGE (Neg); PROTEIN,URINE NEGATIVE (Neg); UROBILINOGEN,URINE 0.2 E.U/dL (0.2-1.0)
[2020-01-29 11:15] LABS: UA COLLECTION TYPE NON-SPECIFIED
[2020-01-29 11:22] LABS: FINE GRANULAR CAST 0-3 /LPF (NEGATIVE)
[2020-01-29 11:25] LABS: TRANSITIONAL EPI CELLS,URINE FEW /HPF
[2020-01-29 11:27] LABS: RENAL CELLS, URINE FEW /HPF
[2020-01-29 11:28] LABS: BACTERIA,URINE FEW /HPF (Neg); SQUAMOUS EPITHELIAL CELL,UR FEW /LPF (FEW); WBC,URINE 0-4 /HPF (0-4)
[2020-01-29 11:29] LABS: MUCUS STRANDS FEW /LPF (Neg)
[2020-01-29] MEDS: Trace element-5 inj. 1 ML in AA 4.25%/calcium/lytes/D5W 2,000 ML IV SCH ×2 (12:49→17:45)
[2020-01-29] MEDS: potassium Cl 20mEq/100mL bag 100 ML IV PRN ×2 (12:52→14:18)
[2020-01-29 14:16] LABS: AMYLASE 18 U/L (25-115); LIPASE 78 U/L (73-393)
[2020-01-29] MEDS: vancomycin inj 500 MG in normal saline 100ml IV soln 100 ML IV SCH (14:33)
--- NOTE | 2020-01-29 18:09 | NUR ---
Problems reprioritized. Patient report given, questions answered & plan of care reviewed with NAVIN Baumann.
--- NOTE | 2020-01-29 18:30 | NUR ---
Patient in room [facility] 2011. I have received report from Susan HOLDEN and had the opportunity to ask questions and assume patient care.
[2020-01-29] MEDS: insulin glargine (Lantus) pen - multi-dose SQ SCH (20:19)
[2020-01-30] VITALS (24 sets, daily range): BP systolic 119–151; BP diastolic 64–87
[2020-01-30] MEDS: albumin (human) 25% 100 ML IV solution IV SCH ×3 (00:05→19:40)
[2020-01-30] MEDS: LIPASE/PROTEASE/AMYLASE 4,200 unit CAPSULE.DR PO SCH ×2 (00:06→08:00)
[2020-01-30] MEDS: FENTANYL-0.9 % NACL/PF 100 ML IV PRN ×6 (02:06→20:43)
[2020-01-30] MEDS: methylPREDNISolone sod succ 125mg/2ml vial IV SCH ×4 (02:17→19:53)
[2020-01-30] MEDS: mineral oil/petrolatum ophthal oint EACHEYE SCH ×4 (02:17→19:54)
[2020-01-30] MEDS: vancomycin inj 500 MG in normal saline 100ml IV soln 100 ML IV SCH ×2 (02:17→14:39)
[2020-01-30] MEDS: insulin regular, human U-100 3ml vial - multi-dose SQ SCH ×4 (02:37→20:48)
[2020-01-30 02:58] LABS: BASOPHILS # (AUTO) 0.1 X10'3 (0-0.2); BASOPHILS % (AUTO) 0.3 % (0-1); EOSINOPHILS % (AUTO) 0 % (0-6); HEMATOCRIT 22.6 % (35.0-45.0); HEMOGLOBIN 7.4 g/dl (12.0-16.0); LYMPHOCYTES # (AUTO) 0.4 X10'3 (1.1-4.8); LYMPHOCYTES % (AUTO) 1.3 % (21-51); MEAN CORPUSCULAR HGB CONC 32.7 g/dL (33.0-36.5); MEAN CORPUSCULAR VOLUME 94.6 FL (78-98); MEAN PLATELET VOLUME 9.9 FL (7.4-10.4); MONOCYTES # (AUTO) 0.8 X10'3 (0-0.9); MONOCYTES % (AUTO) 2.3 % (2-12); NEUTROPHILS # (AUTO) 31.9 X10'3 (1.8-7.7); NEUTROPHILS % (AUTO) 96.1 % (42-75); PLATELET COUNT 94 X10'3 (140-440); RED BLOOD COUNT 2.38 X10'6 (4.20-5.60); RED CELL DISTRIBUTION WIDTH 18.6 % (11.5-14.5)
[2020-01-30 03:05] LABS: WHITE BLOOD COUNT 33.2 X10'3 (4.5-11.0)
[2020-01-30] MEDS: midazolam 100mg in NS 100ml 100 ML IV PRN ×4 (03:05→19:17)
[2020-01-30] MEDS: dextrose 5%-water 1,000 ML IV SCH ×2 (03:05→19:18)
[2020-01-30 03:06] LABS: ALANINE AMINOTRANSFERASE 87 U/L (12-78); ALBUMIN 3.9 G/DL (3.4-5.0); ALBUMIN/GLOBULIN RATIO 2.1 (1.1-1.5); ALKALINE PHOSPHATASE 142 IU/L (46-116); ANION GAP 5 (8-16); ASPARTATE AMINO TRANSFERASE 78 U/L (10-37); BILIRUBIN,TOTAL 2.4 MG/DL (0.1-1.0); BLOOD UREA NITROGEN 50 MG/DL (7-18); BUN/CREATININE RATIO 59.5 (6.6-38.0); CALCIUM 7.8 MG/DL (8.5-10.1); CHLORIDE 108 MMOL/L (99-107); CREATININE 0.84 MG/DL (0.40-0.90); GLUCOSE 96 MG/DL (70-104); MAGNESIUM 2.1 MG/DL (1.5-2.4); PHOSPHORUS 2.4 MG/DL (2.3-4.5); POTASSIUM 3.1 MMOL/L (3.5-5.1); PREALBUMIN 11.3 MG/DL (19-36); SODIUM 148 MMOL/L (135-145); TOTAL CARBON DIOXIDE 34.7 MMOL/L (24-32); TOTAL PROTEIN 5.8 G/DL (6.4-8.2); eGFR 71 ML/MIN
[2020-01-30] MEDS: potassium Cl 20mEq/100mL bag 100 ML IV PRN ×2 (03:20→04:25)
[2020-01-30] MEDS: ipratropium/albuterol 3ml nebule NEB SCH ×6 (03:44→23:36)
[2020-01-30 04:01] LABS: ABG BASE EXCESS 6.4 mmol/L (-2.0-3.0); ABG HCO3 32.6 mmol/L (22.0-26.0); ABG PCO2 (T) 58.7 mmHg (35.0-45.0); ABG PH (T) 7.364 (7.350-7.450); FCOHb 0.8 % (0.5-1.5); FMetHb 0.5 % (0.3-1.12); FO2Hb 94.8 % (94-100); PATIENT TEMPERATURE 37.4; PEEP 15 cm H2O; RESPIRATORY RATE 27 b/min; TIDAL VOLUME 350 mL; TOTAL HEMOGLOBIN 8.3 G/dl (12.0-16.0)
--- NOTE | 2020-01-30 06:29 | NUR ---
Problems reprioritized. Patient report given, questions answered & plan of care reviewed with Preet HOLDEN.
[2020-01-30 07:08] LABS: NUCLEATED RED BLOOD CELLS 1 /100WBC (0-0); TOTAL CELLS COUNTED 100
[2020-01-30 07:09] LABS: ANISOCYTOSIS 2+; PLATELET ESTIMATE DECREASED; TOXIC GRANULATION 1+
[2020-01-30] MEDS: CEFEPIME 2gm in D5W 50mL 50 ML IV SCH ×2 (07:46→19:53)
[2020-01-30] MEDS: levoTHYROXINE sod inj. 100mcg/5 ml vial IV SCH (07:46)
[2020-01-30] MEDS: folic acid 1mg tablet OGT SCH (07:46)
[2020-01-30] MEDS: magnesium oxide 400mg tablet OGT SCH (07:46)
[2020-01-30] MEDS: lactobacillus rhamnosus 10,000 MMU CELLS/CAPSULE PO SCH ×2 (07:46→19:53)
[2020-01-30] MEDS: calcium carbonate/vitamin D3 tablet OGT SCH (07:46)
[2020-01-30] MEDS: furosemide 40mg/4ml inj IV SCH ×2 (07:47→19:53)
[2020-01-30] MEDS: metoclopramide 5 mg/ml inj IV SCH ×3 (07:47→20:43)
[2020-01-30] MEDS: pantoprazole 40 MG vial IV SCH ×2 (07:47→19:53)
[2020-01-30] MEDS: nicotine 21mg patch - 24 hr TD SCH (07:48)
[2020-01-30] MEDS: CISatracurium besylate inj. 100 MG in normal saline 100ml IV soln 90 ML IV SCH ×2 (08:22→17:22)
[2020-01-30] MEDS: thiamine inj. 100 MG in normal saline 100ml IV soln 100 ML IV SCH (08:39)
[2020-01-30] MEDS: MVI, adult No.4 with vit. K 10 ML in dextrose 5% water 500ml 500 ML IV SCH ×2 (09:37)
--- NOTE | 2020-01-30 11:00 | NUR ---
During rounds, spoke to Dr. Restrepo about the possibility of COVID-19 on the patient; however, based on admitting diagnosis and other s/s, patient would not be a suitable candidate.
--- NOTE | 2020-01-30 12:00 | NUR ---
RT advanced ett from 21cm to 23cm with improved volumes, b/l lung sounds present. No need for repeat x-ray per Dr. Restrepo.
--- NOTE | 2020-01-30 13:04 | NUR ---
TPN Consult: Pt has central line and still unable to place NG at this time per MD. TPN to start today. Recs below given pt needs using 62.6kg last bed scale since current be scale 64kg and pt negative fluid balance past 24 hours; likely error. Will monitor for PN tolerance and refeeding signs given higher DEX formula. Meeting essential fatty acid needs using separate lipid recs below. Unable to meet optimal protein needs without overfeeding and fluid overloading given high DEX formula. LBM 01/28 receiving relistor and reglan w/ 550ml stool output documented and lactulose to continue given ammonia down to 92 from 158 previously today per MD. Post-pyloric EN would be optimal for nutrition support given functional gut to prevent bacterial translocation. Will continue to monitor. Recommendations: 1)TPN via central line per MD using 2:1 Clinimix E 04/01 at 75ml/hr goal w/ 120ml separate 20% intralipid infusions to run at 10ml/hr for 12 hours each day. In total; to provide 1800ml fluid, 90g AA, 360g DEX(4.00mg/kg/min), and 1824 total kcals. Initiate at 30ml/hr and if tolerated advance Q12 to goal. 2) Monitor for PN tolerance. 3) Hold EN via OG tube per MD. IF EN restart using Vital AF with goal rate of 70 mL/hr to provide: 1680 mL total volume/day, 2016 kcal, 126 g protein, and 1362 mL water 4) post-pyloric feeds for optimal EN tolerance on rotoprone bed 5) additional free water per MD once EN restarted 6) Prealbumin q /; daily weights 7) Continue banana bag given EtOH hx 8) routine bowel care; opioid antagonist and promotility agent per pension fund manager at rounds Addendum: 01/30/20 at [address] Amended: Links added.
[2020-01-30] MEDS ORDERED: VANCOMYCIN LEVEL IV NR (13:30)
[2020-01-30] MEDS ORDERED: Dextrose 10%-water IV solution 1,000 ML IV PRN (13:34)
[2020-01-30 13:53] LABS: VANCOMYCIN,TROUGH 17.2 UG/ML (6.0-14.0)
[2020-01-30] MEDS ORDERED: [UNRECOGNIZED DRUG - OTHER] IV SCH (16:00)
[2020-01-30] MEDS ORDERED: TRACE ELEMENT IV SCH (16:00)
[2020-01-30] MEDS ORDERED: CALCIUM IV SCH (16:00)
[2020-01-30] MEDS ORDERED: LYTES IV SCH (16:00)
[2020-01-30] MEDS ORDERED: DEXT IV SCH (16:00)
--- NOTE | 2020-01-30 18:16 | NUR ---
Problems reprioritized. Patient report given, questions answered & plan of care reviewed with Ibis HOLDEN.
--- NOTE | 2020-01-30 18:30 | NUR ---
Patient in room [facility] 2011. I have received report from Preet HOLDEN and had the opportunity to ask questions and assume patient care.
[2020-01-30] MEDS: insulin glargine (Lantus) pen - multi-dose SQ SCH (20:48)
[2020-01-31] VITALS (24 sets, daily range): BP systolic 119–158; BP diastolic 71–100
[2020-01-31] MEDS: mineral oil/petrolatum ophthal oint EACHEYE SCH ×4 (02:00→21:07)
[2020-01-31] MEDS: methylPREDNISolone sod succ 125mg/2ml vial IV SCH ×4 (02:00→21:43)
[2020-01-31] MEDS: vancomycin inj 500 MG in normal saline 100ml IV soln 100 ML IV SCH ×2 (02:00→15:18)
[2020-01-31] MEDS: CISatracurium besylate inj. 100 MG in normal saline 100ml IV soln 90 ML IV SCH ×4 (02:01→23:43)
[2020-01-31] MEDS: insulin regular, human U-100 3ml vial - multi-dose SQ SCH ×4 (02:31→21:19)
[2020-01-31 02:51] LABS: BASOPHILS # (AUTO) 0.4 X10'3 (0-0.2); BASOPHILS % (AUTO) 1.1 % (0-1); EOSINOPHILS % (AUTO) 0.1 % (0-6); LYMPHOCYTES # (AUTO) 0.4 X10'3 (1.1-4.8); LYMPHOCYTES % (AUTO) 1.1 % (21-51); MEAN CORPUSCULAR HEMOGLOBIN 31.2 PG (27.0-31.0); MEAN CORPUSCULAR HGB CONC 33.3 g/dL (33.0-36.5); MEAN CORPUSCULAR VOLUME 93.5 FL (78-98); MEAN PLATELET VOLUME 9.7 FL (7.4-10.4); MONOCYTES # (AUTO) 0.8 X10'3 (0-0.9); MONOCYTES % (AUTO) 2.5 % (2-12); NEUTROPHILS % (AUTO) 95.2 % (42-75); PLATELET COUNT 106 X10'3 (140-440); RED BLOOD COUNT 2.24 X10'6 (4.20-5.60); RED CELL DISTRIBUTION WIDTH 18.3 % (11.5-14.5)
[2020-01-31 02:55] LABS: WHITE BLOOD COUNT 31.5 X10'3 (4.5-11.0)
[2020-01-31 03:09] LABS: ALANINE AMINOTRANSFERASE 74 U/L (12-78); ALBUMIN 3.7 G/DL (3.4-5.0); ALBUMIN/GLOBULIN RATIO 1.7 (1.1-1.5); ALKALINE PHOSPHATASE 123 IU/L (46-116); ANION GAP 7 (8-16); ASPARTATE AMINO TRANSFERASE 41 U/L (10-37); BILIRUBIN,TOTAL 2.2 MG/DL (0.1-1.0); BLOOD UREA NITROGEN 57 MG/DL (7-18); BUN/CREATININE RATIO 79.2 (6.6-38.0); CHLORIDE 107 MMOL/L (99-107); CREATININE 0.72 MG/DL (0.40-0.90); GLUCOSE 155 MG/DL (70-104); MAGNESIUM 2.1 MG/DL (1.5-2.4); PHOSPHORUS 2.6 MG/DL (2.3-4.5); SODIUM 147 MMOL/L (135-145); TOTAL CARBON DIOXIDE 33.3 MMOL/L (24-32); TOTAL PROTEIN 5.9 G/DL (6.4-8.2); eGFR 85 ML/MIN
[2020-01-31] MEDS: potassium Cl 20mEq/100mL bag 100 ML IV PRN ×4 (03:13→09:31)
[2020-01-31] MEDS: ipratropium/albuterol 3ml nebule NEB SCH ×6 (03:42→22:48)
[2020-01-31 03:45] LABS: TOTAL CELLS COUNTED 100
[2020-01-31 03:46] LABS: PLATELET ESTIMATE DECREASED
[2020-01-31 03:47] LABS: ANISOCYTOSIS 1+; TOXIC GRANULATION 3+
[2020-01-31 03:56] LABS: ABG BASE EXCESS 4.3 mmol/L (-2.0-3.0); ABG HCO3 29.6 mmol/L (22.0-26.0); ABG OXYGEN SATURATION 97.4 % (95-98); ABG PCO2 (T) 49.2 mmHg (35.0-45.0); ABG PH (T) 7.398 (7.350-7.450); ABG PO2 (T) 105.3 mmHg (83-108); FCOHb 0.7 % (0.5-1.5); FMetHb 0.4 % (0.3-1.12); FO2Hb 96.3 % (94-100); PATIENT TEMPERATURE 37.1; PEEP 15 cm H2O; RESPIRATORY RATE 27 b/min; TIDAL VOLUME 350 mL; TOTAL HEMOGLOBIN 7.6 G/dl (12.0-16.0)
[2020-01-31] MEDS: FENTANYL-0.9 % NACL/PF 100 ML IV PRN ×3 (04:23→18:27)
[2020-01-31] MEDS: dextrose 5%-water 1,000 ML IV SCH ×3 (05:01→19:31)
--- NOTE | 2020-01-31 06:19 | NUR ---
Problems reprioritized. Patient report given, questions answered & plan of care reviewed with Preet HOLDEN.
[2020-01-31] MEDS: albumin (human) 25% 100 ML IV solution IV SCH ×2 (07:11→21:07)
[2020-01-31] MEDS: midazolam 100mg in NS 100ml 100 ML IV PRN ×2 (07:21→18:30)
[2020-01-31] MEDS: lactobacillus rhamnosus 10,000 MMU CELLS/CAPSULE PO SCH ×2 (07:24→21:11)
[2020-01-31] MEDS: levoTHYROXINE sod inj. 100mcg/5 ml vial IV SCH (07:24)
[2020-01-31] MEDS: furosemide 40mg/4ml inj IV SCH ×2 (07:24→21:10)
[2020-01-31] MEDS: folic acid 1mg tablet OGT SCH (07:24)
[2020-01-31] MEDS: magnesium oxide 400mg tablet OGT SCH (07:24)
[2020-01-31] MEDS: calcium carbonate/vitamin D3 tablet OGT SCH (07:24)
[2020-01-31] MEDS: pantoprazole 40 MG vial IV SCH ×2 (07:24→21:10)
[2020-01-31] MEDS: metoclopramide 5 mg/ml inj IV SCH ×3 (07:24→21:11)
[2020-01-31] MEDS: CEFEPIME 2gm in D5W 50mL 50 ML IV SCH ×2 (07:25→21:10)
[2020-01-31] MEDS: nicotine 21mg patch - 24 hr TD SCH (07:25)
[2020-01-31] MEDS: methylnaltrexone br 12mg/0.6ml inj***SubQ only SQ SCH (07:25)
[2020-01-31] MEDS: lactulose 20gm/30ml cup PO SCH (07:29)
[2020-01-31 09:22] LABS: HEMOGLOBIN 7.2 g/dl (12.0-16.0); MEAN CORPUSCULAR HEMOGLOBIN 30.8 PG (27.0-31.0); MEAN CORPUSCULAR HGB CONC 32.8 g/dL (33.0-36.5); MEAN PLATELET VOLUME 9.7 FL (7.4-10.4); PLATELET COUNT 126 X10'3 (140-440); RED BLOOD COUNT 2.32 X10'6 (4.20-5.60); RED CELL DISTRIBUTION WIDTH 18.5 % (11.5-14.5)
[2020-01-31 09:26] LABS: HEMATOCRIT 21.8 % (35.0-45.0); WHITE BLOOD COUNT 36.9 X10'3 (4.5-11.0)
[2020-01-31] MEDS: MVI, adult No.4 with vit. K 10 ML in dextrose 5% water 500ml 500 ML IV SCH ×2 (09:32)
[2020-01-31] MEDS: thiamine inj. 100 MG in normal saline 100ml IV soln 100 ML IV SCH (09:32)
[2020-01-31] MEDS: LYTES IV SCH (13:31)
[2020-01-31] MEDS: [UNRECOGNIZED DRUG - OTHER] IV SCH (13:31)
[2020-01-31] MEDS: TRACE ELEMENT IV SCH (13:31)
[2020-01-31] MEDS: DEXT IV SCH (13:31)
[2020-01-31] MEDS: CALCIUM IV SCH (13:31)
[2020-01-31 13:48] LABS: % IRON SATURATION 42 % (11-46); IRON 32 UG/DL (49-151); TOTAL IRON BINDING CAPACITY 76 UG/DL (259-388)
--- NOTE | 2020-01-31 18:18 | NUR ---
Problems reprioritized. Patient report given, questions answered & plan of care reviewed with Ibis HOLDEN.
--- NOTE | 2020-01-31 18:30 | NUR ---
Patient in room [facility] 2011. I have received report from Preet HOLDEN and had the opportunity to ask questions and assume patient care.
[2020-01-31] MEDS: metoprolol tartrate 25mg tablet PO SCH (21:11)
[2020-01-31] MEDS: insulin glargine (Lantus) pen - multi-dose SQ SCH (21:17)
[2020-02-01] VITALS (24 sets, daily range): BP systolic 120–161; BP diastolic 7–107
[2020-02-01] MEDS: FENTANYL-0.9 % NACL/PF 100 ML IV PRN ×4 (01:29→23:47)
[2020-02-01] MEDS: mineral oil/petrolatum ophthal oint EACHEYE SCH ×4 (02:07→20:07)
[2020-02-01] MEDS: methylPREDNISolone sod succ 125mg/2ml vial IV SCH ×4 (02:07→20:08)
[2020-02-01] MEDS: vancomycin inj 500 MG in normal saline 100ml IV soln 100 ML IV SCH ×2 (02:08→13:16)
[2020-02-01] MEDS: insulin regular, human U-100 3ml vial - multi-dose SQ SCH ×4 (02:14→20:52)
[2020-02-01 02:33] LABS: BASOPHILS # (AUTO) 0.1 X10'3 (0-0.2); BASOPHILS % (AUTO) 0.4 % (0-1); EOSINOPHILS % (AUTO) 0 % (0-6); HEMOGLOBIN 7.1 g/dl (12.0-16.0); LYMPHOCYTES # (AUTO) 0.4 X10'3 (1.1-4.8); MEAN CORPUSCULAR HEMOGLOBIN 31.1 PG (27.0-31.0); MEAN CORPUSCULAR HGB CONC 33.2 g/dL (33.0-36.5); MEAN CORPUSCULAR VOLUME 93.8 FL (78-98); MEAN PLATELET VOLUME 9.9 FL (7.4-10.4); MONOCYTES % (AUTO) 2.6 % (2-12); NEUTROPHILS # (AUTO) 35.1 X10'3 (1.8-7.7); PLATELET COUNT 174 X10'3 (140-440); RED BLOOD COUNT 2.27 X10'6 (4.20-5.60); RED CELL DISTRIBUTION WIDTH 18.8 % (11.5-14.5)
[2020-02-01 02:44] LABS: HEMATOCRIT 21.3 % (35.0-45.0); WHITE BLOOD COUNT 36.5 X10'3 (4.5-11.0)
[2020-02-01 02:45] LABS: ALANINE AMINOTRANSFERASE 130 U/L (12-78); ALBUMIN 3.8 G/DL (3.4-5.0); ALBUMIN/GLOBULIN RATIO 1.5 (1.1-1.5); ALKALINE PHOSPHATASE 156 IU/L (46-116); ANION GAP 6 (8-16); ASPARTATE AMINO TRANSFERASE 115 U/L (10-37); BILIRUBIN,TOTAL 2.4 MG/DL (0.1-1.0); BLOOD UREA NITROGEN 55 MG/DL (7-18); BUN/CREATININE RATIO 91.7 (6.6-38.0); CALCIUM 8.3 MG/DL (8.5-10.1); CHLORIDE 105 MMOL/L (99-107); GLUCOSE 150 MG/DL (70-104); PHOSPHORUS 2.3 MG/DL (2.3-4.5); POTASSIUM 3.5 MMOL/L (3.5-5.1); SODIUM 145 MMOL/L (135-145); TOTAL CARBON DIOXIDE 34.1 MMOL/L (24-32); TOTAL PROTEIN 6.3 G/DL (6.4-8.2); eGFR > 90 ML/MIN
[2020-02-01 03:01] LABS: ANISOCYTOSIS 2+; NUCLEATED RED BLOOD CELLS 1 /100WBC (0-0); PLATELET ESTIMATE DECREASED; TOTAL CELLS COUNTED 100
[2020-02-01] MEDS: ipratropium/albuterol 3ml nebule NEB SCH ×6 (03:04→23:00)
--- NOTE | 2020-02-01 03:52 | NUR ---
Temp yara to 38.0, placed ice packs and temp decreased without further interventions.
[2020-02-01] MEDS: midazolam 100mg in NS 100ml 100 ML IV PRN ×2 (04:28→15:08)
[2020-02-01 04:41] LABS: ABG BASE EXCESS 6.4 mmol/L (-2.0-3.0); ABG HCO3 31.4 mmol/L (22.0-26.0); ABG OXYGEN SATURATION 92.8 % (95-98); ABG PCO2 (T) 48.4 mmHg (35.0-45.0); ABG PO2 (T) 68.8 mmHg (83-108); FCOHb 0.5 % (0.5-1.5); FMetHb 0.4 % (0.3-1.12); PATIENT TEMPERATURE 37.2; PEEP 12 cm H2O; RESPIRATORY RATE 27 b/min; TIDAL VOLUME 350 mL; TOTAL HEMOGLOBIN 7.4 G/dl (12.0-16.0)
[2020-02-01] MEDS: dextrose 5%-water 1,000 ML IV SCH ×2 (05:17→19:26)
[2020-02-01] MEDS: CISatracurium besylate inj. 100 MG in normal saline 100ml IV soln 90 ML IV SCH ×3 (05:17→18:55)
--- NOTE | 2020-02-01 06:22 | NUR ---
Problems reprioritized. Patient report given, questions answered & plan of care reviewed with Preet HOLDEN.
[2020-02-01] MEDS: albumin (human) 25% 100 ML IV solution IV SCH ×2 (06:46→20:02)
[2020-02-01] MEDS: lactulose 20gm/30ml cup PO SCH (07:07)
[2020-02-01] MEDS: pantoprazole 40 MG vial IV SCH ×2 (07:08→20:07)
[2020-02-01] MEDS: metoclopramide 5 mg/ml inj IV SCH ×3 (07:08→20:11)
[2020-02-01] MEDS: levoTHYROXINE sod inj. 100mcg/5 ml vial IV SCH (07:08)
[2020-02-01] MEDS: furosemide 40mg/4ml inj IV SCH ×2 (07:08→20:07)
[2020-02-01] MEDS: CEFEPIME 2gm in D5W 50mL 50 ML IV SCH ×2 (07:09→20:07)
[2020-02-01] MEDS: nicotine 21mg patch - 24 hr TD SCH (07:09)
[2020-02-01] MEDS: calcium carbonate/vitamin D3 tablet OGT SCH (07:10)
[2020-02-01] MEDS: magnesium oxide 400mg tablet OGT SCH (07:10)
[2020-02-01] MEDS: metoprolol tartrate 25mg tablet PO SCH ×2 (07:11→20:11)
[2020-02-01] MEDS: folic acid 1mg tablet OGT SCH (07:11)
[2020-02-01] MEDS: lactobacillus rhamnosus 10,000 MMU CELLS/CAPSULE PO SCH ×2 (07:11→20:08)
[2020-02-01] MEDS: MVI, adult No.4 with vit. K 10 ML in dextrose 5% water 500ml 500 ML IV SCH ×2 (07:38)
[2020-02-01] MEDS: thiamine inj. 100 MG in normal saline 100ml IV soln 100 ML IV SCH (07:38)
--- NOTE | 2020-02-01 08:51 | NUR ---
Brought to Dr. Restrepo's attention about INR of 1.6; orders for Heparin SQ q12h Also, Iron results brought to MD's attentions, no change in orders. MD aware of elevated AST/ALT.
[2020-02-01] MEDS: heparin, porcine 5000 units/ml vial SQ SCH ×2 (09:22→20:09)
--- NOTE | 2020-02-01 13:47 | NUR ---
Positive budding yeast in blood culture drawn on 01/28. Dr. Lauro pantoja and to call infection control. Also, critical potassium of 2.9; will replace per protocol.
[2020-02-01] MEDS: potassium Cl 20mEq/100mL bag 100 ML IV PRN ×4 (13:49→17:30)
[2020-02-01] MEDS: MICAFUNGIN IV SCH (15:26)
[2020-02-01] MEDS: NORMAL SALINE IV SCH (15:26)
[2020-02-01] MEDS: CALCIUM IV SCH (16:50)
[2020-02-01] MEDS: TRACE ELEMENT IV SCH (16:50)
[2020-02-01] MEDS: LYTES IV SCH (16:50)
[2020-02-01] MEDS: DEXT IV SCH (16:50)
[2020-02-01] MEDS: [UNRECOGNIZED DRUG - OTHER] IV SCH (16:50)
--- NOTE | 2020-02-01 17:08 | NUR ---
Per Dr. Restrepo, goal to titrate FiO2 instead of PEEP due to right upper lobe infiltrate
--- NOTE | 2020-02-01 18:28 | NUR ---
Problems reprioritized. Patient report given, questions answered & plan of care reviewed with Debby HOLDEN.
--- NOTE | 2020-02-01 18:30 | NUR ---
Patient in room [facility] 2011. I have received report from Preet HOLDEN and had the opportunity to ask questions and assume patient care.
[2020-02-01] MEDS: insulin glargine (Lantus) pen - multi-dose SQ SCH (20:53)
[2020-02-02] VITALS (24 sets, daily range): BP systolic 135–177; BP diastolic 69–142
[2020-02-02] MEDS: midazolam 100mg in NS 100ml 100 ML IV PRN ×3 (00:16→23:32)
[2020-02-02] MEDS: CISatracurium besylate inj. 100 MG in normal saline 100ml IV soln 90 ML IV SCH ×4 (00:17→20:40)
[2020-02-02] MEDS: mineral oil/petrolatum ophthal oint EACHEYE SCH ×4 (02:05→20:37)
[2020-02-02] MEDS: methylPREDNISolone sod succ 125mg/2ml vial IV SCH ×4 (02:05→20:36)
[2020-02-02] MEDS: vancomycin inj 500 MG in normal saline 100ml IV soln 100 ML IV SCH ×2 (02:05→13:59)
[2020-02-02] MEDS: insulin regular, human U-100 3ml vial - multi-dose SQ SCH ×3 (02:07→21:01)
[2020-02-02 02:37] LABS: ALANINE AMINOTRANSFERASE 155 U/L (12-78); ALBUMIN 3.5 G/DL (3.4-5.0); ALBUMIN/GLOBULIN RATIO 1.5 (1.1-1.5); ALKALINE PHOSPHATASE 136 IU/L (46-116); ANION GAP 6 (8-16); ASPARTATE AMINO TRANSFERASE 77 U/L (10-37); BILIRUBIN,TOTAL 2.2 MG/DL (0.1-1.0); BLOOD UREA NITROGEN 52 MG/DL (7-18); BUN/CREATININE RATIO 96.3 (6.6-38.0); CALCIUM 8.3 MG/DL (8.5-10.1); CHLORIDE 103 MMOL/L (99-107); CREATININE 0.54 MG/DL (0.40-0.90); GLUCOSE 111 MG/DL (70-104); MAGNESIUM 1.9 MG/DL (1.5-2.4); PHOSPHORUS 1.9 MG/DL (2.3-4.5); POTASSIUM 3.7 MMOL/L (3.5-5.1); SODIUM 142 MMOL/L (135-145); TOTAL CARBON DIOXIDE 33.3 MMOL/L (24-32); TOTAL PROTEIN 5.9 G/DL (6.4-8.2); eGFR > 90 ML/MIN
[2020-02-02 02:44] LABS: BASOPHILS % (AUTO) 0 % (0-1); EOSINOPHILS % (AUTO) 0 % (0-6); LYMPHOCYTES # (AUTO) 0.5 X10'3 (1.1-4.8); LYMPHOCYTES % (AUTO) 1.4 % (21-51); MEAN CORPUSCULAR HEMOGLOBIN 30.4 PG (27.0-31.0); MEAN CORPUSCULAR HGB CONC 32.7 g/dL (33.0-36.5); MEAN CORPUSCULAR VOLUME 92.8 FL (78-98); MEAN PLATELET VOLUME 9.7 FL (7.4-10.4); MONOCYTES # (AUTO) 1.5 X10'3 (0-0.9); MONOCYTES % (AUTO) 4.4 % (2-12); NEUTROPHILS # (AUTO) 32.7 X10'3 (1.8-7.7); NEUTROPHILS % (AUTO) 94.2 % (42-75); PLATELET COUNT 222 X10'3 (140-440); RED CELL DISTRIBUTION WIDTH 18.4 % (11.5-14.5)
[2020-02-02] MEDS: ipratropium/albuterol 3ml nebule NEB SCH ×6 (03:05→23:12)
[2020-02-02 03:12] LABS: WHITE BLOOD COUNT 34.7 X10'3 (4.5-11.0)
[2020-02-02 03:13] LABS: HEMATOCRIT 21.3 % (35.0-45.0)
[2020-02-02 03:42] LABS: NUCLEATED RED BLOOD CELLS 1 /100WBC (0-0); TOTAL CELLS COUNTED 100
[2020-02-02 03:43] LABS: ANISOCYTOSIS 2+; PLATELET ESTIMATE NORMAL
[2020-02-02 03:45] LABS: POLYCHROMASIA 1+; TARGET CELLS FEW
[2020-02-02 03:55] LABS: ABG BASE EXCESS 6.2 mmol/L (-2.0-3.0); ABG OXYGEN SATURATION 94.6 % (95-98); ABG PCO2 (T) 40.7 mmHg (35.0-45.0); ABG PH (T) 7.487 (7.350-7.450); ABG PO2 (T) 75.7 mmHg (83-108); FCOHb 0.5 % (0.5-1.5); FMetHb 0.3 % (0.3-1.12); FO2Hb 93.8 % (94-100); PATIENT TEMPERATURE 37.4; PEEP 12 cm H2O; RESPIRATORY RATE 27 b/min; TIDAL VOLUME 350 mL; TOTAL HEMOGLOBIN 8.1 G/dl (12.0-16.0)
[2020-02-02] MEDS: FENTANYL-0.9 % NACL/PF 100 ML IV PRN ×5 (05:08→23:32)
[2020-02-02] MEDS: dextrose 5%-water 1,000 ML IV SCH ×2 (05:09→14:57)
--- NOTE | 2020-02-02 06:43 | NUR ---
Problems reprioritized. Patient report given, questions answered & plan of care reviewed with Cindy HOLDEN.
--- NOTE | 2020-02-02 07:23 | NUR ---
Patient in room [facility] 2011. I have received report from and had the opportunity to ask questions and assume patient care.
[2020-02-02] MEDS: MVI, adult No.4 with vit. K 10 ML in dextrose 5% water 500ml 500 ML IV SCH ×2 (07:59)
[2020-02-02] MEDS: lactulose 20gm/30ml cup PO SCH (08:01)
[2020-02-02] MEDS: albumin (human) 25% 100 ML IV solution IV SCH ×2 (08:01→20:37)
[2020-02-02] MEDS: methylnaltrexone br 12mg/0.6ml inj***SubQ only SQ SCH (08:01)
[2020-02-02] MEDS: pantoprazole 40 MG vial IV SCH ×2 (08:02→20:36)
[2020-02-02] MEDS: CEFEPIME 2gm in D5W 50mL 50 ML IV SCH ×2 (08:02→20:37)
[2020-02-02] MEDS: levoTHYROXINE sod inj. 100mcg/5 ml vial IV SCH (08:02)
[2020-02-02] MEDS: metoclopramide 5 mg/ml inj IV SCH ×3 (08:03→20:36)
[2020-02-02] MEDS: furosemide 40mg/4ml inj IV SCH ×2 (08:03→20:36)
[2020-02-02] MEDS: calcium carbonate/vitamin D3 tablet OGT SCH (08:03)
[2020-02-02] MEDS: heparin, porcine 5000 units/ml vial SQ SCH (08:04)
[2020-02-02] MEDS: metoprolol tartrate 25mg tablet PO SCH ×2 (08:04→20:36)
[2020-02-02] MEDS: folic acid 1mg tablet OGT SCH (08:04)
[2020-02-02] MEDS: lactobacillus rhamnosus 10,000 MMU CELLS/CAPSULE PO SCH ×2 (08:04→20:43)
[2020-02-02] MEDS: magnesium oxide 400mg tablet OGT SCH (08:04)
[2020-02-02] MEDS: nicotine 21mg patch - 24 hr TD SCH (08:05)
[2020-02-02] MEDS: NORMAL SALINE IV SCH (09:26)
[2020-02-02] MEDS: MICAFUNGIN IV SCH (09:26)
[2020-02-02] MEDS: thiamine inj. 100 MG in normal saline 100ml IV soln 100 ML IV SCH (09:26)
[2020-02-02 10:17] LABS: HEMOGLOBIN 7.1 g/dl (12.0-16.0); MEAN CORPUSCULAR VOLUME 93.8 FL (78-98); MEAN PLATELET VOLUME 9.3 FL (7.4-10.4); PLATELET COUNT 241 X10'3 (140-440); RED BLOOD COUNT 2.31 X10'6 (4.20-5.60); RED CELL DISTRIBUTION WIDTH 18.4 % (11.5-14.5)
[2020-02-02 10:19] LABS: HEMATOCRIT 21.6 % (35.0-45.0); WHITE BLOOD COUNT 36.4 X10'3 (4.5-11.0)
[2020-02-02] MEDS ORDERED: heparin 10,000 units/1 ML INJ IV PRN (10:45)
[2020-02-02] MEDS ORDERED: heparin 10,000 units/1 ML INJ IV ONE (10:45)
--- NOTE | 2020-02-02 12:03 | NUR ---
Reassessment: Pt tolerating TPN at goal. 350ml stool output receiving lactulose. RD d/w RN regarding post-pyloric feeds per MD approval given functional gut; RN reports pt cant be supine roughly an hour before desaturating. Will continue to monitor. Recommendations: 1)TPN via central line per MD using 2:1 Clinimix E 5/20 at 75ml/hr goal w/ 120ml separate 20% intralipid infusions to run at 10ml/hr for 12 hours each day. In total; to provide 1800ml fluid, 90g AA, 360g DEX(4.00mg/kg/min), and 1824 total kcals. Initiate at 30ml/hr and if tolerated advance Q12 to goal. 2) Monitor for PN tolerance. 3) Hold EN via OG tube per MD. IF EN restart using Vital AF with goal rate of 70 mL/hr to provide: 1680 mL total volume/day, 2016 kcal, 126 g protein, and 1362 mL water 4) post-pyloric feeds for optimal EN tolerance on rotoprone bed 5) additional free water per MD once EN restarted 6) Prealbumin q /; daily weights 7) Continue banana bag given EtOH hx 8) routine bowel care; opioid antagonist and promotility agent per order checker packer processer at rounds Addendum: 02/02/20 at [address] Amended: Links added.
[2020-02-02] MEDS: heparin 25,000 UNIT/250ml bag 250 ML IV SCH (12:36)
--- NOTE | 2020-02-02 18:30 | NUR ---
Patient in room [facility] 2011. I have received report from NAVIN White and had the opportunity to ask questions and assume patient care.
--- NOTE | 2020-02-02 18:31 | NUR ---
Problems reprioritized. Patient report given, questions answered & plan of care reviewed with .
[2020-02-02] MEDS: DEXT IV SCH (20:38)
[2020-02-02] MEDS: LYTES IV SCH (20:38)
[2020-02-02] MEDS: [UNRECOGNIZED DRUG - OTHER] IV SCH (20:38)
[2020-02-02] MEDS: CALCIUM IV SCH (20:38)
[2020-02-02] MEDS: TRACE ELEMENT IV SCH (20:38)
[2020-02-02] MEDS: insulin glargine (Lantus) pen - multi-dose SQ SCH (21:02)
[2020-02-03] VITALS (24 sets, daily range): BP systolic 100–140; BP diastolic 51–74
[2020-02-03] MEDS: vancomycin inj 500 MG in normal saline 100ml IV soln 100 ML IV SCH ×2 (01:08→15:25)
[2020-02-03] MEDS: CISatracurium besylate inj. 100 MG in normal saline 100ml IV soln 90 ML IV SCH (01:08)
[2020-02-03] MEDS: mineral oil/petrolatum ophthal oint EACHEYE SCH ×4 (01:35→20:17)
[2020-02-03] MEDS: insulin regular, human U-100 3ml vial - multi-dose SQ SCH ×4 (01:36→20:19)
[2020-02-03] MEDS: methylPREDNISolone sod succ 125mg/2ml vial IV SCH ×4 (01:37→20:15)
[2020-02-03 02:11] LABS: BASOPHILS # (AUTO) 0.3 X10'3 (0-0.2); BASOPHILS % (AUTO) 0.7 % (0-1); EOSINOPHILS % (AUTO) 0 % (0-6); HEMOGLOBIN 7.1 g/dl (12.0-16.0); LYMPHOCYTES # (AUTO) 0.5 X10'3 (1.1-4.8); LYMPHOCYTES % (AUTO) 1.3 % (21-51); MEAN CORPUSCULAR HGB CONC 32.6 g/dL (33.0-36.5); MEAN CORPUSCULAR VOLUME 95.2 FL (78-98); MEAN PLATELET VOLUME 9.3 FL (7.4-10.4); MONOCYTES % (AUTO) 5.1 % (2-12); NEUTROPHILS % (AUTO) 92.9 % (42-75); PLATELET COUNT 305 X10'3 (140-440); RED BLOOD COUNT 2.28 X10'6 (4.20-5.60); RED CELL DISTRIBUTION WIDTH 18.7 % (11.5-14.5)
[2020-02-03 02:12] LABS: ALANINE AMINOTRANSFERASE 152 U/L (12-78); ALBUMIN 3.7 G/DL (3.4-5.0); ALBUMIN/GLOBULIN RATIO 1.5 (1.1-1.5); ALKALINE PHOSPHATASE 146 IU/L (46-116); ANION GAP 4 (8-16); ASPARTATE AMINO TRANSFERASE 75 U/L (10-37); BILIRUBIN,TOTAL 2.4 MG/DL (0.1-1.0); BLOOD UREA NITROGEN 48 MG/DL (7-18); BUN/CREATININE RATIO 81.4 (6.6-38.0); CALCIUM 8.2 MG/DL (8.5-10.1); CHLORIDE 101 MMOL/L (99-107); CREATININE 0.59 MG/DL (0.40-0.90); GLUCOSE 106 MG/DL (70-104); PHOSPHORUS 3.1 MG/DL (2.3-4.5); POTASSIUM 3.2 MMOL/L (3.5-5.1); PREALBUMIN 17.1 MG/DL (19-36); SODIUM 139 MMOL/L (135-145); TOTAL PROTEIN 6.2 G/DL (6.4-8.2); TRIGLYCERIDES 89 MG/DL (20-135); eGFR > 90 ML/MIN
[2020-02-03] MEDS: dextrose 5%-water 1,000 ML IV SCH ×2 (02:21→23:51)
[2020-02-03] MEDS: potassium Cl 20mEq/100mL bag 100 ML IV PRN ×2 (02:27→03:47)
[2020-02-03] MEDS: FENTANYL-0.9 % NACL/PF 100 ML IV PRN ×6 (02:31→23:01)
[2020-02-03 02:32] LABS: WHITE BLOOD COUNT 38.8 X10'3 (4.5-11.0)
[2020-02-03 02:33] LABS: HEMATOCRIT 21.7 % (35.0-45.0)
[2020-02-03] MEDS: ipratropium/albuterol 3ml nebule NEB SCH ×6 (03:18→23:03)
[2020-02-03 04:16] LABS: ABG BASE EXCESS 5.5 mmol/L (-2.0-3.0); ABG HCO3 31.8 mmol/L (22.0-26.0); ABG OXYGEN SATURATION 92.6 % (95-98); ABG PCO2 (T) 60.3 mmHg (35.0-45.0); ABG PH (T) 7.344 (7.350-7.450); ABG PO2 (T) 75.5 mmHg (83-108); FCOHb 0.4 % (0.5-1.5); FMetHb 0.4 % (0.3-1.12); FO2Hb 91.9 % (94-100); PATIENT TEMPERATURE 37.8; PEEP 12 cm H2O; RESPIRATORY RATE 24 b/min; TIDAL VOLUME 350 mL
[2020-02-03] MEDS: midazolam 100mg in NS 100ml 100 ML IV PRN ×5 (04:20→23:51)
[2020-02-03] MEDS: magnesium 2GM in 50ml NS 50 ML IV PRN ×2 (04:59→12:37)
--- NOTE | 2020-02-03 06:25 | NUR ---
Problems reprioritized. Patient report given, questions answered & plan of care reviewed with NAVIN White.
--- NOTE | 2020-02-03 06:30 | NUR ---
Patient in room [facility] 2011. I have received report from Melissa HOLDNE and had the opportunity to ask questions and assume patient care.
[2020-02-03] MEDS: CEFEPIME 2gm in D5W 50mL 50 ML IV SCH ×2 (07:23→20:21)
[2020-02-03] MEDS: folic acid 1mg tablet OGT SCH (07:26)
[2020-02-03] MEDS: calcium carbonate/vitamin D3 tablet OGT SCH (07:26)
[2020-02-03] MEDS: lactobacillus rhamnosus 10,000 MMU CELLS/CAPSULE PO SCH ×2 (07:26→20:15)
[2020-02-03] MEDS: magnesium oxide 400mg tablet OGT SCH (07:26)
[2020-02-03] MEDS: lactulose 20gm/30ml cup PO SCH (07:26)
[2020-02-03] MEDS: metoprolol tartrate 25mg tablet PO SCH ×2 (07:29→20:16)
[2020-02-03] MEDS: pantoprazole 40 MG vial IV SCH ×2 (07:56→20:15)
[2020-02-03] MEDS: levoTHYROXINE sod inj. 100mcg/5 ml vial IV SCH (07:56)
[2020-02-03] MEDS: furosemide 40mg/4ml inj IV SCH ×2 (07:57→20:15)
[2020-02-03] MEDS: metoclopramide 5 mg/ml inj IV SCH ×3 (07:57→20:15)
[2020-02-03] MEDS: albumin (human) 25% 100 ML IV solution IV SCH (07:58)
[2020-02-03] MEDS: MICAFUNGIN IV SCH (07:59)
[2020-02-03] MEDS: NORMAL SALINE IV SCH (07:59)
[2020-02-03] MEDS: thiamine inj. 100 MG in normal saline 100ml IV soln 100 ML IV SCH (07:59)
[2020-02-03] MEDS: nicotine 21mg patch - 24 hr TD SCH (08:07)
[2020-02-03] MEDS: MVI, adult No.4 with vit. K 10 ML in dextrose 5% water 500ml 500 ML IV SCH ×2 (09:03)
[2020-02-03 10:22] LABS: NUCLEATED RED BLOOD CELLS 1 /100WBC (0-0); TOTAL CELLS COUNTED 100
[2020-02-03 10:23] LABS: ANISOCYTOSIS 2+; PLATELET ESTIMATE NORMAL; POLYCHROMASIA 2+
[2020-02-03 10:24] LABS: TOXIC GRANULATION 3+
[2020-02-03 10:25] LABS: HYPOCHROMASIA 1+
[2020-02-03] MEDS: heparin 25,000 UNIT/250ml bag 250 ML IV SCH (10:50)
--- NOTE | 2020-02-03 11:00 | NUR ---
Per Dr. Restrepo in rounds, we will start a trick tube feed, have a PICC line and a midline placed, stop the albumin, hold heparin in order to pull L femoral sheath, decrease peep to 10, he would also like the R IJ out as soon as we have a PICC and midline, also said to stop the nimbex. He would also like to have her on the rotorest setting instead of rotoprone as long as she maintains good saturation. No other new orders at this time.
--- NOTE | 2020-02-03 11:05 | NUR ---
nimbex and heparin off
--- NOTE | 2020-02-03 12:10 | NUR ---
TF Consult: Pt more stable in supine position and tolerating 2 hours so far today per RN at rounds. Trickle OGTF to start today per MD at 10ml/hr. Tolerating TPN at goal. 350ml stool output so far receiving lactulose. Will monitor for EN tolerance. Recommendations: 1)TPN via central line per MD using 2:1 Clinimix E 5/20 at 75ml/hr goal w/ 120ml separate 20% intralipid infusions to run at 10ml/hr for 12 hours each day. In total; to provide 1800ml fluid, 90g AA, 360g DEX(4.00mg/kg/min), and 1824 total kcals. Initiate at 30ml/hr and if tolerated advance Q12 to goal. 2) Monitor for PN tolerance. 3) Trickle OGTF per MD using Vital AF at 10ml/hr. IF EN to advance; Vital AF with goal rate of 70 mL/hr to provide: 1680 mL total volume/day, 2016 kcal, 126 g protein, and 1362 mL water 4) post-pyloric feeds for optimal EN tolerance on rotoprone bed 5) additional free water per MD once EN restarted 6) Prealbumin q /; daily weights 7) Continue banana bag given EtOH hx 8) routine bowel care; opioid antagonist and promotility agent per corporate communications associate at rounds Addendum: 02/03/20 at [address] Amended: Links added. Addendum: 02/03/20 at [address] TF Consult: Pt more stable in supine position and tolerating 2 hours so far today per RN at rounds. OGTF to start today hold at 10ml/hr to ensure EN tolerance per MD. Tolerating TPN at goal. 350ml stool output so far receiving lactulose. Will monitor for EN tolerance. Recommendations: 1)TPN via central line per MD using 2:1 Clinimix E /20 at 75ml/hr goal w/ 120ml separate 20% intralipid infusions to run at 10ml/hr for 12 hours each day. In total; to provide 1800ml fluid, 90g AA, 360g DEX(4.00mg/kg/min), and 1824 total kcals. Initiate at 30ml/hr and if tolerated advance Q12 to goal. 2) Monitor for PN tolerance. 3) OGTF per MD using Vital AF at 10ml/hr; to provide 240ml fluid, 288kcals, 194ml free water, and 18g protein. IF EN to advance; Vital AF with goal rate of 70 mL/hr to provide: 1680 mL total volume/day, 2016 kcal, 126 g protein, and 1362 mL water 4) post-pyloric feeds for optimal EN tolerance on rotoprone bed 5) additional free water per MD once EN restarted 6) Prealbumin q /; daily weights 7) Continue banana bag given EtOH hx 8) routine bowel care; opioid antagonist and promotility agent per corporate communications associate at rounds
--- NOTE | 2020-02-03 13:00 | NUR ---
ACT 136 confired with charge nurse Cindy Andrew, stated she is in safe range to pull venous sheath.
[2020-02-03 13:45] LABS: ABG BASE EXCESS 2.8 mmol/L (-2.0-3.0); ABG HCO3 27.9 mmol/L (22.0-26.0); ABG OXYGEN SATURATION 96.6 % (95-98); ABG PCO2 (T) 45.8 mmHg (35.0-45.0); ABG PH (T) 7.402 (7.350-7.450); ABG PO2 (T) 93.9 mmHg (83-108); FCOHb 0.1 % (0.5-1.5); FMetHb 0.5 % (0.3-1.12); PEEP 10 cm H2O; RESPIRATORY RATE 26 b/min; TIDAL VOLUME 350 mL; TOTAL HEMOGLOBIN 6.8 G/dl (12.0-16.0)
--- NOTE | 2020-02-03 14:20 | NUR ---
L venous introducer sheath pulled, pressure applied for 50min, D-stat used to help clot the site, pressure dressing applied, introducer cannula intact. no signs of hematoma
--- NOTE | 2020-02-03 16:28 | NUR ---
talked to Dr. Restrepo regarding heparin gtt, he stated to hold till tomorrow morning
--- NOTE | 2020-02-03 18:24 | NUR ---
Problems reprioritized. Patient report given, questions answered & plan of care reviewed with Melissa HOLDEN.
--- NOTE | 2020-02-03 18:30 | NUR ---
Patient in room [facility] 2011. I have received report from NAVIN White and had the opportunity to ask questions and assume patient care.
--- NOTE | 2020-02-03 19:58 | NUR ---
Per report from day shift, Dr Restrepo asked PEEP to be decreased from 12 to 10. Spoke with Cyrus Danielle and edited orders to show PEEP decrease that was done earlier in the day.
[2020-02-03] MEDS: insulin glargine (Lantus) pen - multi-dose SQ SCH (20:20)
[2020-02-03] MEDS: CALCIUM IV SCH (20:49)
[2020-02-03] MEDS: LYTES IV SCH (20:49)
[2020-02-03] MEDS: TRACE ELEMENT IV SCH (20:49)
[2020-02-03] MEDS: DEXT IV SCH (20:49)
[2020-02-03] MEDS: [UNRECOGNIZED DRUG - OTHER] IV SCH (20:49)
[2020-02-03] MEDS: metroNIDAZOLE-Flagyl 500mg/NS 100 ML IV SCH (23:03)
[2020-02-04] VITALS (29 sets, daily range): BP systolic 84–145; BP diastolic 47–80
[2020-02-04] MEDS: insulin regular, human U-100 3ml vial - multi-dose SQ SCH ×3 (02:00→20:25)
[2020-02-04] MEDS: mineral oil/petrolatum ophthal oint EACHEYE SCH ×4 (02:00→19:53)
--- NOTE | 2020-02-04 02:30 | NUR ---
After transfer of all meds to new PICC line, CVL in R IJ removed with no complications. Held pressure for approx 20 mins, hemostasis achieved and tagaderm dressing applied.
[2020-02-04] MEDS: ipratropium/albuterol 3ml nebule NEB SCH ×6 (03:00→23:31)
[2020-02-04 03:52] LABS: PARTIAL THROMBOPLASTIN TIME 26 SECONDS (22-32)
[2020-02-04 03:56] LABS: ALANINE AMINOTRANSFERASE 264 U/L (12-78); ALBUMIN 3.1 G/DL (3.4-5.0); ALBUMIN/GLOBULIN RATIO 1.2 (1.1-1.5); ALKALINE PHOSPHATASE 174 IU/L (46-116); ANION GAP 6 (8-16); ASPARTATE AMINO TRANSFERASE 127 U/L (10-37); BILIRUBIN,TOTAL 1.9 MG/DL (0.1-1.0); BLOOD UREA NITROGEN 49 MG/DL (7-18); BUN/CREATININE RATIO 90.7 (6.6-38.0); CALCIUM 7.9 MG/DL (8.5-10.1); CHLORIDE 101 MMOL/L (99-107); CREATININE 0.54 MG/DL (0.40-0.90); GLUCOSE 93 MG/DL (70-104); MAGNESIUM 2.3 MG/DL (1.5-2.4); PHOSPHORUS 2.8 MG/DL (2.3-4.5); POTASSIUM 3.5 MMOL/L (3.5-5.1); SODIUM 139 MMOL/L (135-145); TOTAL CARBON DIOXIDE 32.5 MMOL/L (24-32); TOTAL PROTEIN 5.7 G/DL (6.4-8.2); eGFR > 90 ML/MIN
[2020-02-04 04:03] LABS: BASOPHILS # (AUTO) 0.1 X10'3 (0-0.2); BASOPHILS % (AUTO) 0.3 % (0-1); EOSINOPHILS % (AUTO) 0 % (0-6); LYMPHOCYTES # (AUTO) 0.4 X10'3 (1.1-4.8); LYMPHOCYTES % (AUTO) 1.1 % (21-51); MEAN CORPUSCULAR HEMOGLOBIN 31.5 PG (27.0-31.0); MEAN CORPUSCULAR HGB CONC 33.1 g/dL (33.0-36.5); MEAN CORPUSCULAR VOLUME 95.3 FL (78-98); MEAN PLATELET VOLUME 9.1 FL (7.4-10.4); MONOCYTES # (AUTO) 2.1 X10'3 (0-0.9); MONOCYTES % (AUTO) 5.8 % (2-12); NEUTROPHILS # (AUTO) 33.9 X10'3 (1.8-7.7); NEUTROPHILS % (AUTO) 92.8 % (42-75); PLATELET COUNT 334 X10'3 (140-440); RED BLOOD COUNT 2.15 X10'6 (4.20-5.60); RED CELL DISTRIBUTION WIDTH 18.9 % (11.5-14.5)
[2020-02-04 04:06] LABS: HEMATOCRIT 20.5 % (35.0-45.0); HEMOGLOBIN 6.8 g/dl (12.0-16.0); WHITE BLOOD COUNT 36.5 X10'3 (4.5-11.0)
[2020-02-04 04:18] LABS: TOTAL CELLS COUNTED 100
[2020-02-04 04:19] LABS: PLATELET ESTIMATE NORMAL
[2020-02-04 04:20] LABS: ANISOCYTOSIS 2+; POLYCHROMASIA 1+
[2020-02-04 04:21] LABS: STOMATOCYTES 1+
[2020-02-04] MEDS: magnesium 2GM in 50ml NS 50 ML IV PRN (04:23)
[2020-02-04] MEDS: midazolam 100mg in NS 100ml 100 ML IV PRN ×4 (04:42→19:38)
[2020-02-04] MEDS: FENTANYL-0.9 % NACL/PF 100 ML IV PRN ×6 (04:42→20:16)
[2020-02-04 04:46] LABS: ABG BASE EXCESS 6.9 mmol/L (-2.0-3.0); ABG HCO3 31.5 mmol/L (22.0-26.0); ABG OXYGEN SATURATION 94.5 % (95-98); ABG PCO2 (T) 48.3 mmHg (35.0-45.0); ABG PH (T) 7.436 (7.350-7.450); ABG PO2 (T) 78.6 mmHg (83-108); FCOHb 1.3 % (0.5-1.5); FMetHb 0.5 % (0.3-1.12); FO2Hb 92.8 % (94-100); PATIENT TEMPERATURE 37.9; PEEP 10 cm H2O; RESPIRATORY RATE 26 b/min; TIDAL VOLUME 350 mL; TOTAL HEMOGLOBIN 7.2 G/dl (12.0-16.0)
--- NOTE | 2020-02-04 06:26 | NUR ---
Problems reprioritized. Patient report given, questions answered & plan of care reviewed with NAVIN White.
--- NOTE | 2020-02-04 06:30 | NUR ---
Patient in room [facility] 2011. I have received report from Melissa HOLDEN and had the opportunity to ask questions and assume patient care. Patient on rotoprone bed in reverse trendelenberg -11 with 62 degree rotation right to left in supine position, washburn to gravity, ordered drips infusing to L upper arm picc and R upper arm midline, patient also has R femoral art line with good wave form. Patient on ventilator 45% fio2 pee of 10 sating 90-92%. Vital signs stable no signs or symptoms of distress will continue to monitor
[2020-02-04] MEDS: micafungin inj 100 MG in normal saline 100ml IV soln 100 ML IV SCH (08:00)
[2020-02-04] MEDS: heparin 25,000 UNIT/250ml bag 250 ML IV SCH (08:10)
[2020-02-04] MEDS: metroNIDAZOLE-Flagyl 500mg/NS 100 ML IV SCH ×2 (08:30→16:24)
[2020-02-04] MEDS: thiamine inj. 100 MG in normal saline 100ml IV soln 100 ML IV SCH (08:31)
[2020-02-04] MEDS: methylnaltrexone br 12mg/0.6ml inj***SubQ only SQ SCH (08:31)
[2020-02-04] MEDS: CEFEPIME 2gm in D5W 50mL 50 ML IV SCH ×2 (08:31→19:50)
[2020-02-04] MEDS: lactulose 20gm/30ml cup PO SCH (08:32)
[2020-02-04] MEDS: pantoprazole 40 MG vial IV SCH ×2 (08:32→19:52)
[2020-02-04] MEDS: metoclopramide 5 mg/ml inj IV SCH ×3 (08:32→20:08)
[2020-02-04] MEDS: levoTHYROXINE sod inj. 100mcg/5 ml vial IV SCH (08:32)
[2020-02-04] MEDS: furosemide 40mg/4ml inj IV SCH ×2 (08:32→19:52)
[2020-02-04] MEDS: lactobacillus rhamnosus 10,000 MMU CELLS/CAPSULE PO SCH ×2 (08:32→19:52)
[2020-02-04] MEDS: calcium carbonate/vitamin D3 tablet OGT SCH (08:33)
[2020-02-04] MEDS: methylPREDNISolone sod succ 125mg/2ml vial IV SCH (08:34)
[2020-02-04] MEDS: magnesium oxide 400mg tablet OGT SCH (08:34)
[2020-02-04] MEDS: metoprolol tartrate 25mg tablet PO SCH ×2 (08:34→19:53)
[2020-02-04] MEDS: folic acid 1mg tablet OGT SCH (08:35)
[2020-02-04] MEDS: nicotine 21mg patch - 24 hr TD SCH (08:35)
[2020-02-04] MEDS: MVI, adult No.4 with vit. K 10 ML in dextrose 5% water 500ml 500 ML IV SCH ×2 (09:00)
--- NOTE | 2020-02-04 10:26 | NUR ---
Patient in room [facility] 2011. I have received report from and had the opportunity to ask questions and assume patient care.
--- NOTE | 2020-02-04 10:28 | NUR ---
Per Dr. Restrepo D/c art line if blood pressure is stable, D/c D5 infusion, hold heparin gtt and readdress tomorrow 02/04. informed him of the higher residuals on a trickle feed of 10ml/hr and the hypoactive bowel sounds. No other new orders at this time
--- NOTE | 2020-02-04 16:30 | NUR ---
D/C R femoral art line, canula intact, pressure held for 30 [address] stop in place as precaution due lack of clotting with previous sheath removal from L femoral, vital signs stable patient tolerated well
[2020-02-04 16:35] LABS: HEMATOCRIT 23.1 % (35.0-45.0); HEMOGLOBIN 7.4 g/dl (12.0-16.0); MEAN CORPUSCULAR HEMOGLOBIN 31.8 PG (27.0-31.0); MEAN CORPUSCULAR VOLUME 99.2 FL (78-98); MEAN PLATELET VOLUME 8.5 FL (7.4-10.4); PLATELET COUNT 280 X10'3 (140-440); RED BLOOD COUNT 2.33 X10'6 (4.20-5.60); RED CELL DISTRIBUTION WIDTH 18.6 % (11.5-14.5)
[2020-02-04 16:38] LABS: WHITE BLOOD COUNT 28.4 X10'3 (4.5-11.0)
--- NOTE | 2020-02-04 18:24 | NUR ---
Problems reprioritized. Patient report given, questions answered & plan of care reviewed with Melissa HOLDEN.
--- NOTE | 2020-02-04 18:27 | NUR ---
Problems reprioritized. Patient report given, questions answered & plan of care reviewed with link trainer maintenance worker nurse
--- NOTE | 2020-02-04 18:30 | NUR ---
Patient in room [facility] 2011. I have received report from NAVIN White and had the opportunity to ask questions and assume patient care.
[2020-02-04] MEDS: CALCIUM IV SCH (19:52)
[2020-02-04] MEDS: DEXT IV SCH (19:52)
[2020-02-04] MEDS: [UNRECOGNIZED DRUG - OTHER] IV SCH (19:52)
[2020-02-04] MEDS: LYTES IV SCH (19:52)
[2020-02-04] MEDS: TRACE ELEMENT IV SCH (19:52)
[2020-02-04] MEDS: methylPREDNISolone sod succ/PF 40mg inj. IV SCH (19:52)
[2020-02-04] MEDS: insulin glargine (Lantus) pen - multi-dose SQ SCH (20:26)
[2020-02-05] VITALS (24 sets, daily range): BP systolic 98–151; BP diastolic 49–84
[2020-02-05] MEDS: metroNIDAZOLE-Flagyl 500mg/NS 100 ML IV SCH ×3 (00:16→16:09)
[2020-02-05] MEDS: FENTANYL-0.9 % NACL/PF 100 ML IV PRN ×8 (00:29→20:37)
[2020-02-05] MEDS: midazolam 100mg in NS 100ml 100 ML IV PRN ×6 (00:53→21:38)
[2020-02-05] MEDS: mineral oil/petrolatum ophthal oint EACHEYE SCH ×4 (02:02→20:41)
[2020-02-05] MEDS: insulin regular, human U-100 3ml vial - multi-dose SQ SCH ×3 (02:18→21:27)
[2020-02-05 02:47] LABS: BASOPHILS # (AUTO) 0.3 X10'3 (0-0.2); BASOPHILS % (AUTO) 0.9 % (0-1); EOSINOPHILS % (AUTO) 0 % (0-6); HEMATOCRIT 24.1 % (35.0-45.0); HEMOGLOBIN 8.1 g/dl (12.0-16.0); LYMPHOCYTES # (AUTO) 0.2 X10'3 (1.1-4.8); LYMPHOCYTES % (AUTO) 0.7 % (21-51); MEAN CORPUSCULAR HEMOGLOBIN 31.9 PG (27.0-31.0); MEAN CORPUSCULAR HGB CONC 33.6 g/dL (33.0-36.5); MEAN PLATELET VOLUME 8.3 FL (7.4-10.4); MONOCYTES # (AUTO) 1.7 X10'3 (0-0.9); MONOCYTES % (AUTO) 5.6 % (2-12); NEUTROPHILS # (AUTO) 27.4 X10'3 (1.8-7.7); NEUTROPHILS % (AUTO) 92.8 % (42-75); PLATELET COUNT 298 X10'3 (140-440); RED BLOOD COUNT 2.54 X10'6 (4.20-5.60); RED CELL DISTRIBUTION WIDTH 18.1 % (11.5-14.5)
[2020-02-05 02:59] LABS: WHITE BLOOD COUNT 29.5 X10'3 (4.5-11.0)
[2020-02-05 03:05] LABS: ALANINE AMINOTRANSFERASE 313 U/L (12-78); ALBUMIN 2.6 G/DL (3.4-5.0); ALKALINE PHOSPHATASE 182 IU/L (46-116); ANION GAP 4 (8-16); ASPARTATE AMINO TRANSFERASE 143 U/L (10-37); BLOOD UREA NITROGEN 49 MG/DL (7-18); BUN/CREATININE RATIO 90.7 (6.6-38.0); CALCIUM 7.7 MG/DL (8.5-10.1); CHLORIDE 102 MMOL/L (99-107); CREATININE 0.54 MG/DL (0.40-0.90); GLUCOSE 108 MG/DL (70-104); MAGNESIUM 2.4 MG/DL (1.5-2.4); PHOSPHORUS 3.3 MG/DL (2.3-4.5); POTASSIUM 3.4 MMOL/L (3.5-5.1); SODIUM 139 MMOL/L (135-145); TOTAL PROTEIN 5.2 G/DL (6.4-8.2); eGFR > 90 ML/MIN
[2020-02-05] MEDS: potassium Cl 20mEq/100mL bag 100 ML IV PRN (03:12)
[2020-02-05] MEDS: ipratropium/albuterol 3ml nebule NEB SCH ×6 (03:15→23:12)
[2020-02-05 03:35] LABS: ABG BASE EXCESS 3.3 mmol/L (-2.0-3.0); ABG HCO3 28.5 mmol/L (22.0-26.0); ABG OXYGEN SATURATION 92.9 % (95-98); ABG PCO2 (T) 48.9 mmHg (35.0-45.0); ABG PH (T) 7.388 (7.350-7.450); ABG PO2 (T) 73.2 mmHg (83-108); FCOHb 0.2 % (0.5-1.5); FMetHb 0.4 % (0.3-1.12); FO2Hb 92.3 % (94-100); PATIENT TEMPERATURE 38.1; PEEP 10 cm H2O; RESPIRATORY RATE 26 b/min; TIDAL VOLUME 350 mL; TOTAL HEMOGLOBIN 9.3 G/dl (12.0-16.0)
[2020-02-05 03:49] LABS: TOTAL CELLS COUNTED 100
[2020-02-05 03:50] LABS: ANISOCYTOSIS 2+; PLATELET ESTIMATE NORMAL
[2020-02-05] MEDS: magnesium 2GM in 50ml NS 50 ML IV PRN (04:28)
[2020-02-05 04:52] LABS: UREA NITROGEN 24HR,URINE 23.1 GM/24HR (7-20)
--- NOTE | 2020-02-05 06:12 | NUR ---
Problems reprioritized. Patient report given, questions answered & plan of care reviewed with NAVIN White.
--- NOTE | 2020-02-05 06:30 | NUR ---
Patient in room [facility] 2011. I have received report from Melissa HOLDEN and had the opportunity to ask questions and assume patient care. Patient on rotoprone bed, on rotorest setting. Ventilated on fio2 45% peep of 10 sating 90-92%, L PICC with gtts infusing as ordered, washburn draining to gravity, vital signs stable no signs or symptoms of distress. Will continue to monitor
--- NOTE | 2020-02-05 06:41 | NUR ---
Patient in room [facility] 2011. I have received report from and had the opportunity to ask questions and assume patient care.
--- NOTE | 2020-02-05 07:37 | NUR ---
Upon physical assessment right foot found to be cold compared to left this is changed from yesterday when i left for my shift. Doppler pulse was weak and hard to find, notified Power Plant Engineer Amy. Will notify
[2020-02-05] MEDS: dextrose 50%-water 50ml dispensing syringe IV PRN (07:52)
[2020-02-05] MEDS: levoTHYROXINE sod inj. 100mcg/5 ml vial IV SCH (07:52)
[2020-02-05] MEDS: furosemide 40mg/4ml inj IV SCH ×3 (07:55→20:37)
[2020-02-05] MEDS: pantoprazole 40 MG vial IV SCH ×2 (07:57→20:37)
[2020-02-05] MEDS: metoclopramide 5 mg/ml inj IV SCH ×3 (07:58→20:38)
[2020-02-05] MEDS: methylPREDNISolone sod succ/PF 40mg inj. IV SCH ×2 (08:00→20:37)
[2020-02-05] MEDS: lactobacillus rhamnosus 10,000 MMU CELLS/CAPSULE PO SCH ×2 (08:02→20:40)
[2020-02-05] MEDS: lactulose 20gm/30ml cup PO SCH (08:02)
[2020-02-05] MEDS: nicotine 21mg patch - 24 hr TD SCH (08:02)
[2020-02-05] MEDS: magnesium oxide 400mg tablet OGT SCH (08:03)
[2020-02-05] MEDS: calcium carbonate/vitamin D3 tablet OGT SCH (08:03)
[2020-02-05] MEDS: folic acid 1mg tablet OGT SCH (08:03)
[2020-02-05] MEDS: metoprolol tartrate 25mg tablet PO SCH ×2 (08:03→20:40)
[2020-02-05] MEDS: micafungin inj 100 MG in normal saline 100ml IV soln 100 ML IV SCH (08:11)
[2020-02-05] MEDS: CEFEPIME 2gm in D5W 50mL 50 ML IV SCH ×2 (08:11→20:37)
[2020-02-05] MEDS: thiamine inj. 100 MG in normal saline 100ml IV soln 100 ML IV SCH (08:12)
--- NOTE | 2020-02-05 08:21 | NUR ---
AM blood sugar 49, treated with D50 half an amp as ordered per protocol, recheck was 82, will re check in 15min
[2020-02-05] MEDS: MVI, adult No.4 with vit. K 10 ML in dextrose 5% water 500ml 500 ML IV SCH ×2 (10:07)
--- NOTE | 2020-02-05 10:18 | NUR ---
Per Dr. Blevins during rounds stop tube feed, restart heparin DVT protocol, increase lasix 40mg to TID, he is aware of the cold foot but we can not address it at this time, there is a doppler pulse in the R foot for which is cold at this time. No other new orders at this time
--- NOTE | 2020-02-05 10:53 | NUR ---
Reassessment: Pt TF held at this time per MD for residuals 225 w/ trickle feeding at 10ml/hr. Pt is receiving routine relistor, reglan, and lactulose w/ rectal tube in place. Last documented stool output 350ml 02/02. RN reports hoping to transition from rotoprone bed in the next 24 hours; would aid EN tolerance since no longer pronated and does not have post-pyloric feeds. Pt would benefit from post-pyloric feeds if has EN intolerance once off rotoprone bed. Tolerating TPN at goal. Will continue to monitor. Recommendations: 1)TPN via central line per MD using 2:1 Clinimix E 5/20 at 75ml/hr goal w/ 120ml separate 20% intralipid infusions to run at 10ml/hr for 12 hours each day. In total; to provide 1800ml fluid, 90g AA, 360g DEX(4.00mg/kg/min), and 1824 total kcals. Initiate at 30ml/hr and if tolerated advance Q12 to goal. 2) Monitor for PN tolerance. 3) OGTF per MD using Vital AF at 10ml/hr; to provide 240ml fluid, 288kcals, 194ml free water, and 18g protein. IF EN to advance; Vital AF with goal rate of 70 mL/hr to provide: 1680 mL total volume/day, 2016 kcal, 126 g protein, and 1362 mL water 4) post-pyloric feeds for optimal EN tolerance on rotoprone bed 5) additional free water per MD once EN restarted 6) Prealbumin q /; daily weights 7) Continue banana bag given EtOH hx 8) routine bowel care; opioid antagonist and promotility agent per health care consultant at rounds Addendum: 02/05/20 at [address] Amended: Links added.
--- NOTE | 2020-02-05 11:06 | NUR ---
[address]30 [facility] [place] Addendum: 02/05/20 at 1109 by Annie Trevizo RN [phone] re-check [facility] [place] [facility]
--- NOTE | 2020-02-05 18:25 | NUR ---
Problems reprioritized. Patient report given, questions answered & plan of care reviewed with .
--- NOTE | 2020-02-05 18:30 | NUR ---
Patient in room CICU 2011. I have received report from Cindy HOLDEN and had the opportunity to ask questions and assume patient care.
--- NOTE | 2020-02-05 18:31 | NUR ---
Problems reprioritized. Patient report given, questions answered & plan of care reviewed with Debby HOLDEN.
[2020-02-05] MEDS: insulin glargine (Lantus) pen - multi-dose SQ SCH (21:28)
[2020-02-05] MEDS: acetaminophen 325mg tablet OGT PRN (22:29)
[2020-02-06] VITALS (25 sets, daily range): BP systolic 70–153; BP diastolic 50–86
[2020-02-06] MEDS: FENTANYL-0.9 % NACL/PF 100 ML IV PRN ×6 (00:04→23:14)
[2020-02-06] MEDS: heparin 25,000 UNIT/250ml bag 250 ML IV SCH ×3 (00:08→22:55)
[2020-02-06] MEDS: metroNIDAZOLE-Flagyl 500mg/NS 100 ML IV SCH ×3 (00:11→16:27)
[2020-02-06] MEDS: mineral oil/petrolatum ophthal oint EACHEYE SCH ×4 (02:03→21:38)
[2020-02-06] MEDS: dextrose 50%-water 50ml dispensing syringe IV PRN (02:13)
[2020-02-06 02:48] LABS: BASOPHILS # (AUTO) 0.4 X10'3 (0-0.2); BASOPHILS % (AUTO) 1.5 % (0-1); EOSINOPHILS % (AUTO) 0 % (0-6); HEMATOCRIT 24.6 % (35.0-45.0); HEMOGLOBIN 8.4 g/dl (12.0-16.0); LYMPHOCYTES # (AUTO) 0.2 X10'3 (1.1-4.8); LYMPHOCYTES % (AUTO) 0.7 % (21-51); MEAN CORPUSCULAR HEMOGLOBIN 32.6 PG (27.0-31.0); MEAN CORPUSCULAR HGB CONC 34.3 g/dL (33.0-36.5); MEAN CORPUSCULAR VOLUME 94.9 FL (78-98); MEAN PLATELET VOLUME 8.5 FL (7.4-10.4); MONOCYTES # (AUTO) 0.9 X10'3 (0-0.9); MONOCYTES % (AUTO) 3.1 % (2-12); NEUTROPHILS # (AUTO) 27.3 X10'3 (1.8-7.7); NEUTROPHILS % (AUTO) 94.7 % (42-75); PLATELET COUNT 275 X10'3 (140-440); RED BLOOD COUNT 2.59 X10'6 (4.20-5.60); RED CELL DISTRIBUTION WIDTH 19.4 % (11.5-14.5)
[2020-02-06] MEDS: ipratropium/albuterol 3ml nebule NEB SCH ×6 (02:53→23:06)
[2020-02-06 02:55] LABS: WHITE BLOOD COUNT 28.8 X10'3 (4.5-11.0)
[2020-02-06 03:01] LABS: ALANINE AMINOTRANSFERASE 190 U/L (12-78); ALBUMIN 2.4 G/DL (3.4-5.0); ALBUMIN/GLOBULIN RATIO 0.8 (1.1-1.5); ALKALINE PHOSPHATASE 167 IU/L (46-116); ANION GAP 4 (8-16); ASPARTATE AMINO TRANSFERASE 67 U/L (10-37); BILIRUBIN,TOTAL 1.5 MG/DL (0.1-1.0); BLOOD UREA NITROGEN 52 MG/DL (7-18); BUN/CREATININE RATIO 98.1 (6.6-38.0); CALCIUM 7.8 MG/DL (8.5-10.1); CHLORIDE 102 MMOL/L (99-107); CREATININE 0.53 MG/DL (0.40-0.90); GLUCOSE 53 MG/DL (70-104); PREALBUMIN 13.7 MG/DL (19-36); SODIUM 140 MMOL/L (135-145); TOTAL CARBON DIOXIDE 34.1 MMOL/L (24-32); TOTAL PROTEIN 5.4 G/DL (6.4-8.2); TRIGLYCERIDES 58 MG/DL (20-135); eGFR > 90 ML/MIN
[2020-02-06 03:08] LABS: POTASSIUM 3.5 MMOL/L (3.5-5.1)
[2020-02-06 03:37] LABS: TOTAL CELLS COUNTED 100
[2020-02-06 03:39] LABS: ANISOCYTOSIS 2+; PLATELET ESTIMATE NORMAL; STOMATOCYTES 1+
[2020-02-06] MEDS: midazolam 100mg in NS 100ml 100 ML IV PRN ×3 (03:53→21:03)
[2020-02-06 03:56] LABS: ABG BASE EXCESS 5.3 mmol/L (-2.0-3.0); ABG HCO3 31.9 mmol/L (22.0-26.0); ABG OXYGEN SATURATION 90.7 % (95-98); ABG PCO2 (T) 59.6 mmHg (35.0-45.0); ABG PH (T) 7.351 (7.350-7.450); ABG PO2 (T) 65.8 mmHg (83-108); ALLEN'S TEST POSITIVE; FCOHb 0.2 % (0.5-1.5); FMetHb 0.3 % (0.3-1.12); FO2Hb 90.2 % (94-100); PATIENT TEMPERATURE 37.9; PEEP 10 cm H2O; RESPIRATORY RATE 26 b/min; TIDAL VOLUME 350 mL; TOTAL HEMOGLOBIN 11.2 G/dl (12.0-16.0)
[2020-02-06] MEDS: DEXT IV SCH ×2 (04:40→16:00)
[2020-02-06] MEDS: TRACE ELEMENT IV SCH ×2 (04:40→16:00)
[2020-02-06] MEDS: [UNRECOGNIZED DRUG - OTHER] IV SCH ×2 (04:40→16:00)
[2020-02-06] MEDS: CALCIUM IV SCH ×2 (04:40→16:00)
[2020-02-06] MEDS: LYTES IV SCH ×2 (04:40→16:00)
[2020-02-06] MEDS: micafungin inj 100 MG in normal saline 100ml IV soln 100 ML IV SCH ×2 (08:00→11:52)
[2020-02-06] MEDS: MVI, adult No.4 with vit. K 10 ML in dextrose 5% water 500ml 500 ML IV SCH ×2 (08:48)
[2020-02-06] MEDS: levoTHYROXINE sod inj. 100mcg/5 ml vial IV SCH (08:48)
[2020-02-06] MEDS: folic acid 1mg tablet OGT SCH (08:49)
[2020-02-06] MEDS: calcium carbonate/vitamin D3 tablet OGT SCH (08:49)
[2020-02-06] MEDS: metoprolol tartrate 25mg tablet PO SCH ×2 (08:50→21:46)
[2020-02-06] MEDS: lactobacillus rhamnosus 10,000 MMU CELLS/CAPSULE PO SCH ×2 (08:51→21:46)
[2020-02-06] MEDS: furosemide 40mg/4ml inj IV SCH ×3 (08:54→21:21)
[2020-02-06] MEDS: methylPREDNISolone sod succ/PF 40mg inj. IV SCH ×2 (08:54→21:38)
[2020-02-06] MEDS: metoclopramide 5 mg/ml inj IV SCH ×3 (08:55→21:24)
[2020-02-06] MEDS: pantoprazole 40 MG vial IV SCH ×2 (08:55→21:14)
[2020-02-06] MEDS: acetaminophen 325mg tablet OGT PRN ×2 (09:24→16:28)
[2020-02-06] MEDS: lactulose 20gm/30ml cup PO SCH (09:31)
[2020-02-06] MEDS: thiamine inj. 100 MG in normal saline 100ml IV soln 100 ML IV SCH (09:32)
[2020-02-06] MEDS: CEFEPIME 2gm in D5W 50mL 50 ML IV SCH ×2 (09:32→21:35)
[2020-02-06] MEDS: nicotine 21mg patch - 24 hr TD SCH (09:44)
[2020-02-06] MEDS: methylnaltrexone br 12mg/0.6ml inj***SubQ only SQ SCH (09:46)
[2020-02-06] MEDS: magnesium oxide 400mg tablet OGT SCH (11:18)
[2020-02-06] MEDS: insulin regular, human U-100 3ml vial - multi-dose SQ SCH ×2 (14:03→20:11)
[2020-02-06] MEDS: insulin glargine (Lantus) pen - multi-dose SQ SCH (20:12)
[2020-02-06] MEDS: diatr meglu/diatrizoate 30ml oral sol.-(3 dose) bottle PO SCH (21:44)
[2020-02-07] VITALS (24 sets, daily range): BP systolic 106–147; BP diastolic 56–79
[2020-02-07] MEDS: metroNIDAZOLE-Flagyl 500mg/NS 100 ML IV SCH ×4 (00:17→23:40)
[2020-02-07] MEDS: acetaminophen 325mg tablet OGT PRN ×2 (00:44→09:45)
[2020-02-07] MEDS: insulin regular, human U-100 3ml vial - multi-dose SQ SCH ×4 (02:19→20:39)
[2020-02-07] MEDS: mineral oil/petrolatum ophthal oint EACHEYE SCH ×4 (02:22→20:28)
[2020-02-07] MEDS: ipratropium/albuterol 3ml nebule NEB SCH ×6 (02:47→23:20)
[2020-02-07 03:00] LABS: ABG BASE EXCESS 2.8 mmol/L (-2.0-3.0); ABG HCO3 27.9 mmol/L (22.0-26.0); ABG OXYGEN SATURATION 91.3 % (95-98); ABG PCO2 (T) 47.2 mmHg (35.0-45.0); ABG PH (T) 7.394 (7.350-7.450); ALLEN'S TEST POSITIVE; FCOHb 0.3 % (0.5-1.5); FMetHb 0.4 % (0.3-1.12); FO2Hb 90.7 % (94-100); PATIENT TEMPERATURE 37.9; PEEP 10 cm H2O; RESPIRATORY RATE 26 b/min; TIDAL VOLUME 350 mL; TOTAL HEMOGLOBIN 9.5 G/dl (12.0-16.0)
[2020-02-07 03:10] LABS: BASOPHILS # (AUTO) 0.2 X10'3 (0-0.2); BASOPHILS % (AUTO) 0.8 % (0-1); EOSINOPHILS % (AUTO) 0 % (0-6); HEMATOCRIT 25.9 % (35.0-45.0); HEMOGLOBIN 8.3 g/dl (12.0-16.0); LYMPHOCYTES # (AUTO) 0.2 X10'3 (1.1-4.8); LYMPHOCYTES % (AUTO) 0.8 % (21-51); MEAN CORPUSCULAR HEMOGLOBIN 30.8 PG (27.0-31.0); MEAN CORPUSCULAR HGB CONC 31.9 g/dL (33.0-36.5); MEAN CORPUSCULAR VOLUME 96.4 FL (78-98); MEAN PLATELET VOLUME 8.7 FL (7.4-10.4); MONOCYTES # (AUTO) 0.5 X10'3 (0-0.9); MONOCYTES % (AUTO) 2.1 % (2-12); NEUTROPHILS # (AUTO) 23.7 X10'3 (1.8-7.7); NEUTROPHILS % (AUTO) 96.3 % (42-75); PLATELET COUNT 278 X10'3 (140-440); RED BLOOD COUNT 2.69 X10'6 (4.20-5.60); RED CELL DISTRIBUTION WIDTH 19.9 % (11.5-14.5); WHITE BLOOD COUNT 24.6 X10'3 (4.5-11.0)
[2020-02-07 03:20] LABS: ALANINE AMINOTRANSFERASE 126 U/L (12-78); ALBUMIN 2.1 G/DL (3.4-5.0); ALBUMIN/GLOBULIN RATIO 0.7 (1.1-1.5); ALKALINE PHOSPHATASE 180 IU/L (46-116); ANION GAP 3 (8-16); ASPARTATE AMINO TRANSFERASE 60 U/L (10-37); BILIRUBIN,TOTAL 1.3 MG/DL (0.1-1.0); BLOOD UREA NITROGEN 59 MG/DL (7-18); BUN/CREATININE RATIO 84.3 (6.6-38.0); CALCIUM 7.6 MG/DL (8.5-10.1); CHLORIDE 102 MMOL/L (99-107); GLUCOSE 215 MG/DL (70-104); POTASSIUM 3.7 MMOL/L (3.5-5.1); SODIUM 140 MMOL/L (135-145); TOTAL CARBON DIOXIDE 34.7 MMOL/L (24-32); TOTAL PROTEIN 5.2 G/DL (6.4-8.2); eGFR 88 ML/MIN
[2020-02-07 03:41] LABS: PLATELET ESTIMATE NORMAL
[2020-02-07 03:43] LABS: ANISOCYTOSIS 1+
[2020-02-07] MEDS: FENTANYL-0.9 % NACL/PF 100 ML IV PRN ×4 (04:56→21:55)
[2020-02-07] MEDS: midazolam 100mg in NS 100ml 100 ML IV PRN (05:29)
[2020-02-07] MEDS: diatr meglu/diatrizoate 30ml oral sol.-(3 dose) bottle PO SCH ×2 (07:16→21:00)
[2020-02-07] MEDS: metoprolol tartrate 25mg tablet PO SCH (07:30)
[2020-02-07] MEDS: metoclopramide 5 mg/ml inj IV SCH ×3 (07:31→20:25)
[2020-02-07] MEDS: lactobacillus rhamnosus 10,000 MMU CELLS/CAPSULE PO SCH ×2 (07:31→20:28)
[2020-02-07] MEDS: furosemide 40mg/4ml inj IV SCH ×2 (07:31→20:25)
[2020-02-07] MEDS: lactulose 20gm/30ml cup PO SCH (07:31)
[2020-02-07] MEDS: folic acid 1mg tablet OGT SCH (07:31)
[2020-02-07] MEDS: calcium carbonate/vitamin D3 tablet OGT SCH (07:31)
[2020-02-07] MEDS: magnesium oxide 400mg tablet OGT SCH (07:31)
[2020-02-07] MEDS: pantoprazole 40 MG vial IV SCH ×2 (07:31→20:23)
[2020-02-07] MEDS: methylPREDNISolone sod succ/PF 40mg inj. IV SCH ×2 (07:31→20:24)
[2020-02-07] MEDS: micafungin inj 100 MG in normal saline 100ml IV soln 100 ML IV SCH (07:32)
[2020-02-07] MEDS: levoTHYROXINE sod inj. 100mcg/5 ml vial IV SCH (07:32)
[2020-02-07] MEDS: thiamine inj. 100 MG in normal saline 100ml IV soln 100 ML IV SCH (07:33)
[2020-02-07] MEDS: nicotine 21mg patch - 24 hr TD SCH (07:40)
[2020-02-07] MEDS: CEFEPIME 2gm in D5W 50mL 50 ML IV SCH ×2 (07:42→20:26)
[2020-02-07] MEDS: LYTES IV SCH (08:18)
[2020-02-07] MEDS: [UNRECOGNIZED DRUG - OTHER] IV SCH (08:18)
[2020-02-07] MEDS: DEXT IV SCH (08:18)
[2020-02-07] MEDS: CALCIUM IV SCH (08:18)
[2020-02-07] MEDS: TRACE ELEMENT IV SCH (08:18)
--- NOTE | 2020-02-07 09:54 | NUR ---
Obtained blood sample x2 from pt central line, both had critically high readings. It was discovered that the tpn was running through the same central line, so I obtained a finger stick sample, which was a more normal reading. I used the finger stick level for treatment. Will continue to monitor.
[2020-02-07] MEDS ORDERED: acetaminophen 325mg/10.15ml oral unit dose solution OGT PRN (10:29)
[2020-02-07] MEDS ORDERED: dextrose ORAL solution 15 GM/59 ML bottle OGT PRN ×2 (10:31)
[2020-02-07] MEDS: heparin 25,000 UNIT/250ml bag 250 ML IV SCH (11:10)
[2020-02-07] MEDS: MVI, adult No.4 with vit. K 10 ML in dextrose 5% water 500ml 500 ML IV SCH ×2 (11:12)
--- NOTE | 2020-02-07 11:26 | NUR ---
primary RN, Art, notified of Critical DVT PTT of >139.
[2020-02-07] MEDS ORDERED: iohexol 300mg/ml 100ml inj. ONE (13:01)
--- NOTE | 2020-02-07 17:48 | NUR ---
Dr. Huston reviewed CT scan, and is going to conrtact ir
--- NOTE | 2020-02-07 19:00 | NUR ---
Patient in room CICU 2011. I have received report from Art RN and had the opportunity to ask questions and assume patient care.
[2020-02-07] MEDS: acetaminophen 325mg/10.15ml oral unit dose solution OGT PRN (20:05)
[2020-02-07] MEDS: metoprolol tartrate 25mg tablet OGT SCH (20:28)
[2020-02-07] MEDS: insulin glargine (Lantus) pen - multi-dose SQ SCH (20:41)
[2020-02-08] VITALS (24 sets, daily range): BP systolic 119–157; BP diastolic 63–89
[2020-02-08] MEDS: mineral oil/petrolatum ophthal oint EACHEYE SCH ×4 (02:36→20:46)
[2020-02-08] MEDS: ipratropium/albuterol 3ml nebule NEB SCH ×6 (02:43→23:23)
[2020-02-08 02:55] LABS: ABG BASE EXCESS 4.8 mmol/L (-2.0-3.0); ABG HCO3 31.1 mmol/L (22.0-26.0); ABG OXYGEN SATURATION 89.8 % (95-98); ABG PCO2 (T) 58.1 mmHg (35.0-45.0); ABG PH (T) 7.351 (7.350-7.450); ABG PO2 (T) 64.6 mmHg (83-108); ALLEN'S TEST POSITIVE; FCOHb 0.3 % (0.5-1.5); FMetHb 0.3 % (0.3-1.12); FO2Hb 89.3 % (94-100); PEEP 12 cm H2O; RESPIRATORY RATE 26 b/min; TIDAL VOLUME 350 mL; TOTAL HEMOGLOBIN 9.6 G/dl (12.0-16.0)
[2020-02-08 04:34] LABS: BASOPHILS # (AUTO) 0.2 X10'3 (0-0.2); BASOPHILS % (AUTO) 0.6 % (0-1); EOSINOPHILS % (AUTO) 0 % (0-6); HEMATOCRIT 26.9 % (35.0-45.0); HEMOGLOBIN 8.6 g/dl (12.0-16.0); LYMPHOCYTES # (AUTO) 0.2 X10'3 (1.1-4.8); LYMPHOCYTES % (AUTO) 0.7 % (21-51); MEAN CORPUSCULAR HEMOGLOBIN 31.1 PG (27.0-31.0); MEAN CORPUSCULAR VOLUME 97.3 FL (78-98); MEAN PLATELET VOLUME 8.8 FL (7.4-10.4); MONOCYTES # (AUTO) 0.3 X10'3 (0-0.9); MONOCYTES % (AUTO) 1.4 % (2-12); NEUTROPHILS # (AUTO) 23.9 X10'3 (1.8-7.7); NEUTROPHILS % (AUTO) 97.3 % (42-75); PLATELET COUNT 195 X10'3 (140-440); RED BLOOD COUNT 2.76 X10'6 (4.20-5.60); RED CELL DISTRIBUTION WIDTH 19.1 % (11.5-14.5); WHITE BLOOD COUNT 24.5 X10'3 (4.5-11.0)
[2020-02-08 04:41] LABS: ALANINE AMINOTRANSFERASE 95 U/L (12-78); ALBUMIN/GLOBULIN RATIO 0.6 (1.1-1.5); ALKALINE PHOSPHATASE 175 IU/L (46-116); ANION GAP 2 (8-16); ASPARTATE AMINO TRANSFERASE 75 U/L (10-37); BLOOD UREA NITROGEN 58 MG/DL (7-18); BUN/CREATININE RATIO 81.7 (6.6-38.0); CALCIUM 7.7 MG/DL (8.5-10.1); CHLORIDE 103 MMOL/L (99-107); CREATININE 0.71 MG/DL (0.40-0.90); GLUCOSE 98 MG/DL (70-104); MAGNESIUM 2.3 MG/DL (1.5-2.4); PHOSPHORUS 4.5 MG/DL (2.3-4.5); POTASSIUM 3.8 MMOL/L (3.5-5.1); SODIUM 140 MMOL/L (135-145); TOTAL CARBON DIOXIDE 34.9 MMOL/L (24-32); TOTAL PROTEIN 5.3 G/DL (6.4-8.2); eGFR 86 ML/MIN
[2020-02-08] MEDS: FENTANYL-0.9 % NACL/PF 100 ML IV PRN ×3 (04:45→22:14)
[2020-02-08] MEDS: midazolam 100mg in NS 100ml 100 ML IV PRN ×2 (04:59→15:55)
[2020-02-08 05:23] LABS: TOTAL CELLS COUNTED 100
[2020-02-08 05:24] LABS: ANISOCYTOSIS 2+; PLATELET ESTIMATE NORMAL; POLYCHROMASIA FEW
--- NOTE | 2020-02-08 07:50 | NUR ---
Rectal tube placed
[2020-02-08] MEDS: methylPREDNISolone sod succ/PF 40mg inj. IV SCH (08:00)
[2020-02-08] MEDS: metoprolol tartrate 25mg tablet OGT SCH ×2 (08:00→20:35)
[2020-02-08] MEDS: furosemide 40mg/4ml inj IV SCH ×2 (08:00→20:28)
[2020-02-08] MEDS: levoTHYROXINE sod inj. 100mcg/5 ml vial IV SCH (08:00)
[2020-02-08] MEDS: lactobacillus rhamnosus 10,000 MMU CELLS/CAPSULE PO SCH ×2 (08:00→20:35)
[2020-02-08] MEDS: lactulose 20gm/30ml cup OGT SCH (08:00)
[2020-02-08] MEDS: metoclopramide 5 mg/ml inj IV SCH ×3 (08:00→20:30)
[2020-02-08] MEDS: pantoprazole 40 MG vial IV SCH ×2 (08:00→20:25)
[2020-02-08] MEDS: nicotine 21mg patch - 24 hr TD SCH (08:00)
[2020-02-08] MEDS: calcium carbonate/vitamin D3 tablet OGT SCH (08:00)
[2020-02-08] MEDS: metroNIDAZOLE-Flagyl 500mg/NS 100 ML IV SCH ×2 (08:00→15:56)
[2020-02-08] MEDS: methylnaltrexone br 12mg/0.6ml inj***SubQ only SQ SCH (08:00)
[2020-02-08] MEDS: thiamine inj. 100 MG in normal saline 100ml IV soln 100 ML IV SCH (08:00)
[2020-02-08] MEDS: CEFEPIME 2gm in D5W 50mL 50 ML IV SCH ×2 (08:00→20:33)
[2020-02-08] MEDS: folic acid 1mg tablet OGT SCH (08:00)
[2020-02-08] MEDS: micafungin inj 100 MG in normal saline 100ml IV soln 100 ML IV SCH (08:00)
[2020-02-08] MEDS: magnesium oxide 400mg tablet OGT SCH (08:00)
[2020-02-08] MEDS: insulin regular, human U-100 3ml vial - multi-dose SQ SCH ×3 (09:04→20:03)
[2020-02-08] MEDS: MVI, adult No.4 with vit. K 10 ML in dextrose 5% water 500ml 500 ML IV SCH ×2 (09:09)
[2020-02-08] MEDS: acetaminophen 325mg/10.15ml oral unit dose solution OGT PRN ×2 (11:30→22:35)
--- NOTE | 2020-02-08 12:03 | NUR ---
Tube feeding increased to 20
--- NOTE | 2020-02-08 12:48 | NUR ---
Reassessment: Pt off rotoprone per MD notes. TF residuals 0-[address] assessment, TF has been advanced to 20 mL/hr per RN notes. TPN still running at goal rate. Per MD notes TF to advance slowly. No documented stool output however Lactulose held today as pt documented with diarrhea. Pt s/p CT which shows ground glass pulmonary infiltrates, pancreatic fluid collection, and massive ascites, and the portal vein thrombosis per MD notes. Will continue to follow closely. Recommendations: 1)TPN via central line per MD using 2:1 Clinimix E /20 at 75ml/hr goal w/ 120ml separate 20% intralipid infusions to run at 10ml/hr for 12 hours each day. In total; to provide 1800ml fluid, 90g AA, 360g DEX(4.00mg/kg/min), and 1824 total kcals. Initiate at 30ml/hr and if tolerated advance Q12 to goal. 2) Monitor for PN tolerance. 3) OGTF per MD using Vital AF at 10ml/hr; to provide 240ml fluid, 288kcals, 194ml free water, and 18g protein. IF EN to advance; Vital AF with goal rate of 70 mL/hr to provide: 1680 mL total volume/day, 2016 kcal, 126 g protein, and 1362 mL water 4) additional free water per MD once EN restarted 5) Prealbumin q /; daily weights 6) Continue banana bag given EtOH hx 7) routine bowel care; opioid antagonist and promotility agent per patient services representative at rounds Addendum: 02/08/20 at [address] Amended: Links added.
[2020-02-08] MEDS: TRACE ELEMENT IV SCH (15:56)
[2020-02-08] MEDS: DEXT IV SCH (15:56)
[2020-02-08] MEDS: LYTES IV SCH (15:56)
[2020-02-08] MEDS: CALCIUM IV SCH (15:56)
[2020-02-08] MEDS: [UNRECOGNIZED DRUG - OTHER] IV SCH (15:56)
[2020-02-08] MEDS ORDERED: fentaNYL 50mcg/ml PF inj. 2,500 MCG in normal saline 250ml IV soln 200 ML IV PRN (18:30)
--- NOTE | 2020-02-08 19:00 | NUR ---
Patient in room CICU 2011. I have received report from Art RN and had the opportunity to ask questions and assume patient care.
[2020-02-08] MEDS: insulin glargine (Lantus) pen - multi-dose SQ SCH (20:05)
[2020-02-08] MEDS: heparin 25,000 UNIT/250ml bag 250 ML IV SCH (20:49)
[2020-02-08 23:30] LABS: ABG BASE EXCESS 3.8 mmol/L (-2.0-3.0); ABG HCO3 29.6 mmol/L (22.0-26.0); ABG OXYGEN SATURATION 88.3 % (95-98); ABG PCO2 (T) 55.2 mmHg (35.0-45.0); ABG PH (T) 7.355 (7.350-7.450); ABG PO2 (T) 64.3 mmHg (83-108); ALLEN'S TEST POSITIVE; FCOHb 0.3 % (0.5-1.5); FMetHb 0.3 % (0.3-1.12); FO2Hb 87.8 % (94-100); PATIENT TEMPERATURE 38.7; PEEP 12 cm H2O; RESPIRATORY RATE 26 b/min; TIDAL VOLUME 350 mL; TOTAL HEMOGLOBIN 9.9 G/dl (12.0-16.0)
--- NOTE | 2020-02-08 23:48 | NUR ---
PT Pulse oximetry was trending in the mid 80's, the fio2 was increased up to 90 %. an ABG was taken and the P02 was 64, Murtaza Khan ROUTE PROCESS ADMINISTRATOR was notified. He agreed to increase the Peep settings to 15, if the peak pressure permitted.
[2020-02-09] VITALS (25 sets, daily range): BP systolic 0–148; BP diastolic 0–84
[2020-02-09] MEDS: midazolam 100mg in NS 100ml 100 ML IV PRN ×3 (01:33→15:48)
[2020-02-09] MEDS: metroNIDAZOLE-Flagyl 500mg/NS 100 ML IV SCH ×3 (01:36→15:48)
[2020-02-09 01:42] LABS: BASOPHILS % (AUTO) 0.2 % (0-1); EOSINOPHILS % (AUTO) 0.1 % (0-6); HEMATOCRIT 27.2 % (35.0-45.0); HEMOGLOBIN 8.8 g/dl (12.0-16.0); LYMPHOCYTES # (AUTO) 0.4 X10'3 (1.1-4.8); LYMPHOCYTES % (AUTO) 1.9 % (21-51); MEAN CORPUSCULAR HEMOGLOBIN 31.4 PG (27.0-31.0); MEAN CORPUSCULAR HGB CONC 32.2 g/dL (33.0-36.5); MEAN CORPUSCULAR VOLUME 97.5 FL (78-98); MEAN PLATELET VOLUME 8.7 FL (7.4-10.4); MONOCYTES # (AUTO) 0.2 X10'3 (0-0.9); MONOCYTES % (AUTO) 0.9 % (2-12); NEUTROPHILS # (AUTO) 18.4 X10'3 (1.8-7.7); NEUTROPHILS % (AUTO) 96.9 % (42-75); PLATELET COUNT 128 X10'3 (140-440); RED BLOOD COUNT 2.79 X10'6 (4.20-5.60); WHITE BLOOD COUNT 18.9 X10'3 (4.5-11.0)
[2020-02-09 01:53] LABS: ALANINE AMINOTRANSFERASE 73 U/L (12-78); ALBUMIN 1.8 G/DL (3.4-5.0); ALBUMIN/GLOBULIN RATIO 0.5 (1.1-1.5); ALKALINE PHOSPHATASE 179 IU/L (46-116); ANION GAP 2 (8-16); ASPARTATE AMINO TRANSFERASE 89 U/L (10-37); BILIRUBIN,TOTAL 0.9 MG/DL (0.1-1.0); BLOOD UREA NITROGEN 59 MG/DL (7-18); BUN/CREATININE RATIO 86.8 (6.6-38.0); CALCIUM 7.7 MG/DL (8.5-10.1); CHLORIDE 104 MMOL/L (99-107); CREATININE 0.68 MG/DL (0.40-0.90); GLUCOSE 92 MG/DL (70-104); MAGNESIUM 2.2 MG/DL (1.5-2.4); PHOSPHORUS 3.6 MG/DL (2.3-4.5); POTASSIUM 3.8 MMOL/L (3.5-5.1); SODIUM 140 MMOL/L (135-145); TOTAL CARBON DIOXIDE 33.6 MMOL/L (24-32); TOTAL PROTEIN 5.1 G/DL (6.4-8.2); eGFR > 90 ML/MIN
[2020-02-09] MEDS: mineral oil/petrolatum ophthal oint EACHEYE SCH ×4 (02:00→20:43)
[2020-02-09] MEDS: CISatracurium besylate inj. 100 MG in normal saline 100ml IV soln 90 ML IV PRN ×2 (02:56→17:55)
[2020-02-09] MEDS: ipratropium/albuterol 3ml nebule NEB SCH ×5 (03:12→19:00)
[2020-02-09] MEDS: insulin regular, human U-100 3ml vial - multi-dose SQ SCH ×3 (03:16→21:36)
[2020-02-09 03:31] LABS: ABG BASE EXCESS 4.8 mmol/L (-2.0-3.0); ABG HCO3 30.7 mmol/L (22.0-26.0); ABG OXYGEN SATURATION 87.3 % (95-98); ABG PH (T) 7.362 (7.350-7.450); ABG PO2 (T) 60.1 mmHg (83-108); ALLEN'S TEST POSITIVE; FCOHb 0.3 % (0.5-1.5); FMetHb 0.3 % (0.3-1.12); FO2Hb 86.8 % (94-100); PATIENT TEMPERATURE 38.1; PEEP 12 cm H2O; RESPIRATORY RATE 26 b/min; TIDAL VOLUME 350 mL; TOTAL HEMOGLOBIN 9.2 G/dl (12.0-16.0)
[2020-02-09 03:40] LABS: ANISOCYTOSIS 2+; PLATELET ESTIMATE DECREASED; POLYCHROMASIA FEW; TOTAL CELLS COUNTED 100
[2020-02-09] MEDS: FENTANYL-0.9 % NACL/PF 100 ML IV PRN ×4 (05:56→20:44)
--- NOTE | 2020-02-09 06:30 | NUR ---
Patient in room CICU 2011. I have received report from Daljit HOLDEN and had the opportunity to ask questions and assume patient care. Patient laying in bed on ventilator fio2 100% peep of15 sating 87-90%, washburn to gravity, ordered drips infusing to L PICC and R midline as ordered,
[2020-02-09] MEDS: folic acid 1mg tablet OGT SCH (08:00)
[2020-02-09] MEDS: lactobacillus rhamnosus 10,000 MMU CELLS/CAPSULE PO SCH ×2 (08:00→20:45)
[2020-02-09] MEDS: metoprolol tartrate 25mg tablet OGT SCH ×2 (08:00→20:00)
[2020-02-09] MEDS: calcium carbonate/vitamin D3 tablet OGT SCH (08:00)
[2020-02-09] MEDS: magnesium oxide 400mg tablet OGT SCH (08:00)
[2020-02-09] MEDS: lactulose 20gm/30ml cup OGT SCH (08:00)
[2020-02-09] MEDS ORDERED: methylPREDNISolone sod succ/PF 40mg inj. IV SCH (08:00)
[2020-02-09] MEDS: CEFEPIME 2gm in D5W 50mL 50 ML IV SCH ×2 (08:11→20:49)
[2020-02-09] MEDS: metoclopramide 5 mg/ml inj IV SCH ×3 (08:16→20:45)
[2020-02-09] MEDS: pantoprazole 40 MG vial IV SCH ×2 (08:16→20:45)
[2020-02-09] MEDS: furosemide 40mg/4ml inj IV SCH ×2 (08:16→20:44)
[2020-02-09] MEDS: levoTHYROXINE sod inj. 100mcg/5 ml vial IV SCH (08:18)
[2020-02-09] MEDS: thiamine inj. 100 MG in normal saline 100ml IV soln 100 ML IV SCH (09:07)
[2020-02-09] MEDS: MVI, adult No.4 with vit. K 10 ML in dextrose 5% water 500ml 500 ML IV SCH ×2 (09:07)
[2020-02-09] MEDS: nicotine 21mg patch - 24 hr TD SCH (09:08)
[2020-02-09] MEDS: micafungin inj 100 MG in normal saline 100ml IV soln 100 ML IV SCH (09:09)
--- NOTE | 2020-02-09 10:30 | NUR ---
IR by to tap patients abdomen
[2020-02-09 10:41] LABS: ABG BASE EXCESS -0.7 mmol/L (-2.0-3.0); ABG HCO3 26.3 mmol/L (22.0-26.0); ABG PH (T) 7.269 (7.350-7.450); ABG PO2 (T) 62.3 mmHg (83-108); ALLEN'S TEST POSITIVE; FCOHb 0.3 % (0.5-1.5); FMetHb 0.3 % (0.3-1.12); FO2Hb 83.5 % (94-100); PEEP 15 cm H2O; RESPIRATORY RATE 26 b/min; TIDAL VOLUME 425 mL; TOTAL HEMOGLOBIN 10.2 G/dl (12.0-16.0)
--- NOTE | 2020-02-09 10:45 | NUR ---
Patient De-marcy perdomo bedside, ventilator changes made, patient sating in the mid 70's, new solumedorl orders, Dr. Perdomo would like to put her back on the rotoprone bed
--- NOTE | 2020-02-09 12:00 | NUR ---
Patient desating to to 69-70%, Dr. Restrepo bedside, RT bedside, charge nurse bedside, hand bagging patient, sats up to 76%. Decision made to put patient back on ventilator. [facility] called back rotoprone bed not available till tomorrow, informed Dr. Restrepo he stated to get the rotorest bed until the rotoprone bed is available
[2020-02-09] MEDS: methylPREDNISolone sod succ 125mg/2ml vial IV SCH ×3 (12:32→20:45)
[2020-02-09 12:57] LABS: LYMPHOCYTES,BODY FLUID 10 %; MONOCYTES,BODY FLUID 15 %; NEUTROPHILS,BODY FLUID 75 %
[2020-02-09 12:58] LABS: BFAPPEAR CLOUDY; BFCOLOR AMBER; BFVOLUME 57 ML
[2020-02-09 12:59] LABS: BF RBC COUNT 6500 /CU MM; BF WBC COUNT 2250 /CU MM (0-1000)
[2020-02-09] MEDS: LYTES IV SCH (13:39)
[2020-02-09] MEDS: DEXT IV SCH (13:39)
[2020-02-09] MEDS: CALCIUM IV SCH (13:39)
[2020-02-09] MEDS: TRACE ELEMENT IV SCH (13:39)
[2020-02-09] MEDS: [UNRECOGNIZED DRUG - OTHER] IV SCH (13:39)
--- NOTE | 2020-02-09 13:53 | NUR ---
F/u: Pt TF had been advanced to 20ml/hr per MD yesterday but now held r/t new GIB per RN; is receiving routine protonix. Pt tolerating TPN at goal. New bed scale wt 76.9kg but pt -6.5L negative fluid balance past 10 days and 01/29 bed scale 62.6 kg. Pt on new bed following rotoprone as well so latest wt likely error. Accurate BMI 21. Given wt fluctuates will have to use IBW to calculate needs. No rectal tube output today receiving relistor and reglan. Will continue to monitor for EN advancement as medically indicated and nutrition support tolerance. Reassessment: Pt off rotoprone per MD notes. TF residuals 0-[address] assessment, TF has been advanced to 20 mL/hr per RN notes. TPN still running at goal rate. Per MD notes TF to advance slowly. No documented stool output however Lactulose held today as pt documented with diarrhea. Pt s/p CT which shows ground glass pulmonary infiltrates, pancreatic fluid collection, and massive ascites, and the portal vein thrombosis per MD notes. Will continue to follow closely. Recommendations: 1)TPN via central line per MD using 2:1 Clinimix E 5/20 at 75ml/hr goal w/ 120ml separate 20% intralipid infusions to run at 10ml/hr for 12 hours each day. In total; to provide 1800ml fluid, 90g AA, 360g DEX(4.00mg/kg/min), and 1824 total kcals. Initiate at 30ml/hr and if tolerated advance Q12 to goal. 2) Monitor for PN tolerance. 3) OGTF per MD using Vital AF at 10ml/hr; to provide 240ml fluid, 288kcals, 194ml free water, and 18g protein. IF EN to advance; Vital AF with goal rate of 65 mL/hr to provide: 1560mL total volume/day, 1872 kcal, 117 g protein, and 1264 mL water 4) additional free water per MD once EN restarted 5) Prealbumin q /; daily weights 6) Continue banana bag given EtOH hx 7) routine bowel care; opioid antagonist and promotility agent per mud boss at rounds Addendum: 02/09/20 at [address] Amended: Links added.
--- NOTE | 2020-02-09 16:30 | NUR ---
Called Dr. Restrepo to updated him on the patients status, sating in the low 70%, also informed him of the new ABG results, and the no urine output, he ordered an amp of bicarb, he informed me to call Kaye Odell and have her talk to Dr. Johnson. Jose R MANAGER EXCHANGE here to see patient, Jose R called the to update him and discuss code status. Informed Jose R that patient is now not maintaining a map of 60, she ordered Levophed
[2020-02-09 16:41] LABS: ABG HCO3 24.6 mmol/L (22.0-26.0); ABG PH (T) 7.086 (7.350-7.450); ALLEN'S TEST POSITIVE; FCOHb 0.3 % (0.5-1.5); FMetHb 0.2 % (0.3-1.12); FO2Hb 74.6 % (94-100); PATIENT TEMPERATURE 37.2; PEEP 20 cm H2O; RESPIRATORY RATE 30 b/min; TIDAL VOLUME 275 mL
[2020-02-09] MEDS ORDERED: sodium bicarbonate (8.4%) inj. 1 MEQ/ML ML IV ONE (16:50)
[2020-02-09] MEDS ORDERED: NORepinephrine 8mg/ 250ml NS 250 ML IV SCH (17:25)
[2020-02-09] MEDS ORDERED: NORepinephrine 8mg/ 250ml NS 250 ML IV ONE (17:31)
--- NOTE | 2020-02-09 18:27 | NUR ---
informed Jose R of critical PTT of 106, turned off heparin per protocol
--- NOTE | 2020-02-09 18:27 | NUR ---
Problems reprioritized. Patient report given, questions answered & plan of care reviewed with Sandee HOLDEN.
--- NOTE | 2020-02-09 18:50 | NUR ---
0..Family at bedside, saying good bye to pt. End of life issues discussed with family, remains limited code at this time.
--- NOTE | 2020-02-09 18:50 | NUR ---
1830..Patient in room CICU 2011. I have received report from Heena HOLDEN and had the opportunity to ask questions and assume patient care.
--- NOTE | 2020-02-09 20:23 | NUR ---
pts family was in with pt and very emotional, and i talked with nurse and agreed to skip treatment and give family some privacy Addendum: 02/09/20 at 2023 by Chiara Hernandez RT Amended: Links added.
[2020-02-09] MEDS: insulin glargine (Lantus) pen - multi-dose SQ SCH (21:35)
--- NOTE | 2020-02-09 22:23 | NUR ---
2215..As per order change, pt now comfort care, all drips off except fentanyl and versed, pt extubated to room air, family at bedside.
--- NOTE | 2020-02-09 22:23 | NUR ---
2000..Assessment as noted.
--- NOTE | 2020-02-09 23:09 | NUR ---
2245..Pt with no heart rate, resp, or blood pressure. Family at bedside.
--- NOTE | 2020-02-09 23:10 | NUR ---
224..RN IS TO DOCUMENT YES TO ALL APPLICABLE AREAS Pronouncement of :2244 1. Time Physician Notified:[id number] 2. Date of :02/09/2020 3. Time of : 2244 4. DNR/Withdraw life support documented:yes 5. Monitor strip has been placed on chart:yes 6. Assessment process is of one-minute duration and includes following criteria: a) Patient is unresponsive to all stimuli: yes b) Pupils fixed and non-reactive:yes c) Auscultation of precordium reveals absence of heart tones:yes d) Auscultation of lungs reveals absence of breath sounds:yes e) Absence of blood pressure / all vital signs:yes f) QRS complexes are not present on monitor / EKG strip:yes g) Pacer spikes without capture:na 4. Comments:
--- NOTE | 2020-02-09 23:12 | NUR ---
2300..Donor network notified.
--- NOTE | 2020-02-10 01:03 | NUR ---
0100..Per family request, remains and upper denture released to Irvin and Obdulia.
== END 2020-02-10 01:09 | disposition expired | DRG 720 ==
LOC: ER 13:17 → ED HOLD 16:23 → CICU 2S 17:43
PROVIDERS: ADMIT Internal Medicine Critical Care Medicine
PROC: 30233N1 Transfusion of Nonautologous Red Blood Cells into Peripheral Vein, Percutaneous Approach (ICD-10-PCS; 2020-01-21)
PROC: 30233K1 Transfusion of Nonautologous Frozen Plasma into Peripheral Vein, Percutaneous Approach (ICD-10-PCS; 2020-01-21)
PROC: B4101ZZ Fluoroscopy of Abdominal Aorta using Low Osmolar Contrast (ICD-10-PCS; 2020-01-21)
PROC: B4141ZZ Fluoroscopy of Superior Mesenteric Artery using Low Osmolar Contrast (ICD-10-PCS; 2020-01-21)
PROC: B41J1ZZ Fluoroscopy of Other Lower Arteries using Low Osmolar Contrast (ICD-10-PCS; 2020-01-21)
PROC: 5A09357 Assistance with Respiratory Ventilation, Less than 24 Consecutive Hours, Continuous Positive Airway Pressure (ICD-10-PCS; principal; 2020-01-22)
PROC: 5A1955Z Respiratory Ventilation, Greater than 96 Consecutive Hours (ICD-10-PCS; 2020-01-23)
PROC: 0BH17EZ Insertion of Endotracheal Airway into Trachea, Via Natural or Artificial Opening (ICD-10-PCS; 2020-01-23)
PROC: 02HV33Z Insertion of Infusion Device into Superior Vena Cava, Percutaneous Approach (ICD-10-PCS; 2020-02-03)
PROC: B548ZZA Ultrasonography of Superior Vena Cava, Guidance (ICD-10-PCS; 2020-02-03)
PROC: BW251ZZ Computerized Tomography (CT Scan) of Chest, Abdomen and Pelvis using Low Osmolar Contrast (ICD-10-PCS; 2020-02-07)
PROC: 0W9G3ZZ Drainage of Peritoneal Cavity, Percutaneous Approach (ICD-10-PCS; 2020-02-09)
DX: B37.7 Candidal sepsis (principal); J96.01 Acute respiratory failure with hypoxia; R57.1 Hypovolemic shock; I81 Portal vein thrombosis; K86.3 Pseudocyst of pancreas; E87.2 Acidosis; D62 Acute posthemorrhagic anemia; N17.9 Acute kidney failure, unspecified; D68.59 Other primary thrombophilia; E87.70 Fluid overload, unspecified; F10.20 Alcohol dependence, uncomplicated; E03.9 Hypothyroidism, unspecified; E78.00 Pure hypercholesterolemia, unspecified; K21.9 Gastro-esophageal reflux disease without esophagitis; F17.210 Nicotine dependence, cigarettes, uncomplicated; I10 Essential (primary) hypertension; K76.0 Fatty (change of) liver, not elsewhere classified; K86.1 Other chronic pancreatitis; K92.2 Gastrointestinal hemorrhage, unspecified; Z51.5 Encounter for palliative care; Z86.718 Personal history of other venous thrombosis and embolism; Z90.49 Acquired absence of other specified parts of digestive tract; Z90.710 Acquired absence of both cervix and uterus; Z88.0 Allergy status to penicillin; Z79.899 Other long term (current) drug therapy
CPT/HCPCS: 36245; 36415; 36430; 36573; 36600; 49083; 71045; 71260; 74176; 74177; 75726; 76937; 80053; 80202; 81001; 82140; 82150; 82330; 82803; 82948; 83540; 83550; 83605; 83690; 83735; 83880; 84100; 84132; 84134; 84145; 84300; 84443; 84478; 84560; 85018; 85025; 85027; 85347; 85379; 85384; 85610; 85651; 85730; 86885; 86900; 86901; 86920; 87040; 87070; 87081; 87502; 87503; 89051; 93005; 93306; 93975; 94002; 94003; 94640; 94760; 96361; 96365; 96375; 99152; 99153; 99285; C1769; C1894; C9113; C9132; G0378; J0692; J1170; J1644; J1815; J1940; J1956; J2060; J2212; J2248; J2250; J2270; J2354; J2597; J2765; J2920; J2930; J3010; J3370; J3411; J3475; J3480; J3490; J7030; J7050; J7060; J7070; P9016; P9047; P9059; Q9963; Q9967